=== PATIENT | female | born 1955 | race Caucasian/White ===

== ENCOUNTER 2020-01-10 09:35 | Outpatient (REF) | payer MEDICARE, MEDICAID, SELFPAY ==
[2020-01-10 10:13] LABS: Hematocrit 39.3 % (37-47); Hemoglobin 12.8 g/dl (12.0-16.0); Mean Corpuscular HGB Conc 32.6 g/dl (31.0-35.0); Mean Corpuscular Hemoglobin 27.5 pg (27.0-33.0); Mean Corpuscular Volume 84.5 fL (80-98); Mean Platelet Volume 9.8 fL (9.4-12.3); Platelet Count 205 X10*3/uL (160-400); Red Blood Count 4.65 X10*6/uL (4.20-5.50); Red Cell Distribution Width 12.8 % (11.0-16.0); White Blood Count 6.2 X10*3/uL (4.8-10.8)
[2020-01-10 10:42] LABS: Anion Gap 12 (12-20); Blood Urea Nitrogen 14 mg/dL (9-16); Calcium 9.4 mg/dL (8.4-10.2); Carbon Dioxide 29 mmol/L (22-29); Chloride 104 mmol/L (96-108); Cholesterol 239 mg/dL; Estimated Glomerular Filt Rate > 60; Glucose Fasting 91 mg/dL (60-99); HDL Cholesterol 64 mg/dL; LDL Cholesterol Calculated 148 mg/dl; Potassium 4.3 mmol/l (3.3-5.1); Sodium 141 mmol/L (135-145); Triglycerides 139 mg/dL
== END 2020-01-10 09:36 | disposition home or self-care (01) ==
LOC: HO.LAB 09:35
PROVIDERS: PCP Internal Medicine; Visit Provider Nurse Practitioner Family
DX: I10 Essential (primary) hypertension (principal)
CPT/HCPCS: 36415; 80048; 80061; 85027

== ENCOUNTER 2020-05-23 11:16 | Outpatient (REF) | payer MEDICARE, MEDICAID, SELFPAY | END 2020-05-23 11:17 | disposition home or self-care (01) | LOC: HO.LAB 11:16 | PROVIDERS: Visit Provider Nurse Practitioner Family | DX: J30.9 Allergic rhinitis, unspecified (principal); Z20.822 Contact with and (suspected) exposure to COVID-19 | CPT/HCPCS: U0003; U0005 ==

== ENCOUNTER 2021-02-25 07:33 | Outpatient (REF) | payer MEDICARE, MEDICAID, SELFPAY ==
[2021-02-25 07:47] LABS: MANUAL DIFF FLAG NO
[2021-02-25 08:29] LABS: Basophils Percent Auto 0.6 % (0-2); Eosinophils Absolute Auto 0.1 X10*3/uL (0.0-0.4); Eosinophils Percent Auto 1.2 % (0-4); Hematocrit 40.2 % (37.0-47.0); Imm Gran Abs Auto 0.01 X10*3/uL (0.00-0.03); Imm Gran Pct Auto 0.2 % (0.0-0.4); Lymphocytes Absolute Auto 1.8 X10*3/uL (1.2-4.9); Lymphocytes Percent Auto 36.4 % (20-40); Mean Corpuscular HGB Conc 32.3 g/dl (31.0-35.0); Mean Corpuscular Volume 83.6 fL (80.0-98.0); Monocytes Absolute Auto 0.3 X10*3/uL (0.1-1.2); Monocytes Percent Auto 6.7 % (2-11); Neutrophils Absolute Auto 2.6 x10*3/uL (2.0-8.3); Neutrophils Percent Auto 54.9 % (45-73); Platelet Count 195 X10*3/uL (160-400); Red Blood Count 4.81 X10*6/uL (4.20-5.50); White Blood Count 4.8 X10*3/uL (4.8-10.8)
[2021-02-25 08:55] LABS: Alanine Aminotransferase 21 U/L (0-31); Albumin Level 4.4 g/dL (3.5-5.0); Alkaline Phosphatase 60 U/L (39-117); Anion Gap 12 (12-20); Aspartate Amino Transferase 17 U/L (5-31); Bilirubin Total 0.4 mg/dL (0.0-1.0); Blood Urea Nitrogen 17 mg/dL (9-16); Calcium 9.9 mg/dL (8.4-10.2); Carbon Dioxide 28 mmol/L (22-29); Chloride 104 mmol/L (96-108); Cholesterol 261 mg/dL; Estimated Glomerular Filt Rate > 60; Glucose Random 102 mg/dL (60-115); HDL Cholesterol 72 mg/dL; LDL Cholesterol Calculated 171 mg/dl; Potassium 3.9 mmol/L (3.3-5.1); Sodium 140 mmol/L (135-145); Total Protein 7.7 g/dL (6.5-8.0); Triglycerides 94 mg/dL
[2021-02-25 09:18] LABS: Free T4 (Free Thyroxine) 1.03 ng/dL (0.71-1.85); Thyroid Stimulating Hormone 3.66 uIU/mL (0.32-4.0); Vitamin D 25-OH Total 15.5 ng/mL (>30)
[2021-02-25 09:31] LABS: Folate > 20.0 ng/mL (> or = 4.0); Vitamin B12 380 pg/mL (200-900)
== END 2021-02-25 07:34 | disposition home or self-care (01) ==
LOC: HO.LAB 07:33
PROVIDERS: PCP Internal Medicine; Visit Provider Internal Medicine
DX: E78.00 Pure hypercholesterolemia, unspecified (principal)
CPT/HCPCS: 36415; 80053; 80061; 82306; 82607; 82746; 84439; 84443; 85025

== ENCOUNTER 2021-04-03 13:09 | Outpatient (REF) | payer MEDICARE, MEDICAID, SELFPAY ==
--- NOTE | ~2021-04-03 | MM_ITS ---
EXAMINATION: MM SCREENING DIGITAL BREAST TOMOSYNTHESIS, BILATERAL CLINICAL INFORMATION: Screening. Asymptomatic. The lifetime risk of breast cancer based on the Tyrer-Cuzick Model is 4%. COMPARISON: Mammography: 12/24/2018, 12/16/2017, 03/03/2016, 11/23/2012 TECHNIQUE: Digital breast tomosynthesis is performed in both the craniocaudal and mediolateral oblique views along with computer-aided detection (CAD). Synthesized 2D images are generated from the tomosynthesis. FINDINGS: The breasts are heterogeneously dense, which may obscure small masses (ACR BI-RADS breast composition Category c). Parenchymal pattern is similar to prior exams. There is no significant mass or architectural abnormality. No developing density. Again, there are numerous regional calcifications right breast upper outer quadrant similar to prior studies. There are again lesser calcifications upper left breast. No interval suspicious calcifications. The axilla and skin contours are unremarkable. MM/MM tomosynthesis screening BI IMPRESSION: No significant changes from prior exams. ASSESSMENT: BI-RADS 2: Benign RECOMMENDATION: Routine annual mammography screening. This patient's information was entered into a reminder system with a target due date for their next mammogram.
== END 2021-04-03 13:10 | disposition home or self-care (01) ==
LOC: HO.MAMMO 13:09
PROVIDERS: Visit Provider Internal Medicine
DX: Z12.31 Encounter for screening mammogram for malignant neoplasm of breast (principal)
CPT/HCPCS: 77063; 77067

== ENCOUNTER 2021-06-05 06:47 | Outpatient (REF) | payer MEDICARE, MEDICAID, SELFPAY ==
[2021-06-05 08:00] LABS: Estimated Average Glucose 103 mg/dL; Hemoglobin A1c % 5.2 %
[2021-06-05 08:08] LABS: Alanine Aminotransferase 14 U/L (0-31); Albumin Level 4.2 g/dL (3.5-5.0); Alkaline Phosphatase 61 U/L (39-117); Anion Gap 11 (12-20); Aspartate Amino Transferase 17 U/L (5-31); Bilirubin Total 0.5 mg/dL (0.0-1.0); Blood Urea Nitrogen 16 mg/dL (9-16); Calcium 9.6 mg/dL (8.4-10.2); Carbon Dioxide 29 mmol/L (22-29); Chloride 102 mmol/L (96-108); Cholesterol 278 mg/dL; Estimated Glomerular Filt Rate > 60; Glucose Random 104 mg/dL (60-115); HDL Cholesterol 61 mg/dL; LDL Cholesterol Calculated 191 mg/dl; Potassium 4.1 mmol/L (3.3-5.1); Sodium 138 mmol/L (135-145); Total Protein 7.2 g/dL (6.5-8.0); Triglycerides 132 mg/dL
== END 2021-06-05 06:48 | disposition home or self-care (01) ==
LOC: HO.LAB 06:47
PROVIDERS: PCP Internal Medicine; Visit Provider Internal Medicine
DX: R73.02 Impaired glucose tolerance (oral) (principal); E78.00 Pure hypercholesterolemia, unspecified
CPT/HCPCS: 36415; 80053; 80061; 83036

== ENCOUNTER 2021-08-27 12:51 | Outpatient (REF) | payer MEDICARE, MEDICAID, SELFPAY ==
--- NOTE | ~2021-08-27 | MM_ITS ---
EXAMINATION: BONE DENSITOMETRY CLINICAL INDICATION: Asymptomatic menopausal state. COMPARISON: Previous BD dated 08/25/2019 and baseline BD dated 11/27/2016. TECHNIQUE: Using a Vivisimo DXA System (software version: 13.1) manufactured by [employer], dual-energy x-ray absorptiometry was performed of the lumbar spine and left hip. The images are of good technical quality. Summary results are attached. FINDINGS: AP SPINE L1-L4: Current: BMD 0.956 g/cm2, Z-score -0.2, T-score -1.9, osteopenia, 1.6% decrease from previous, 0.1% decrease from baseline (<5% change is not significant). Prior: BMD 0.972 g/cm2. Baseline: BMD 0.957 g/cm2. LEFT FEMUR, NECK: Current: BMD 0.746 g/cm2, Z-score -0.5, T-score -2.1, osteopenia. Prior: BMD 0.787 g/cm2. Baseline: BMD 0.841 g/cm2. LEFT FEMUR, TOTAL: Current: BMD 0.850 g/cm2, Z-score 0.1, T-score -1.3, osteopenia, 4.1% decrease from previous, 3.3% decrease from baseline (<5% change is not significant). Prior: BMD 0.886 g/cm2. Baseline: BMD 0.879 g/cm2. IDENTIFIED RISK FACTORS: Menopause. HISTORY OF FRACTURE: None listed. MEDICATIONS: Vitamin D. MM/XR DEXA axial skeleton IMPRESSION: 1. DIAGNOSIS: Osteopenia based on the lowest T-score value of -2.1 in the femoral neck applying World Health Organization criteria. 2. 10-YEAR FRACTURE RISK PREDICTION, FRAX: Major osteoporotic fracture (clinical spine, forearm, hip or shoulder) 6.8%. Hip fracture 1.3%. 3. Treatment Recommendations: NOF guidelines recommend consideration for treatment in postmenopausal women and men age 50 and older presenting with the following: -A hip or vertebral (clinical or morphometric) fracture. -T-score less than or equal to -2.5 at the femoral neck or spine after appropriate evaluation to exclude secondary causes. -Low bone mass at the hip or spine and a 10-year fracture probability by FRAX of greater than or equal to 3% for hip fracture or greater than or equal to 20% for major osteoporotic fracture based on the [place] adapted WHO algorithm. 4. Other Recommendations: All treatment decisions require clinical judgment and consideration of individual patient factors, including patient preferences, comorbidities, previous drug use, risk factors not captured in the FRAX model (e.g. frailty, falls, vitamin D deficiency, increased bone turnover, interval significant decline in bone density) and possible under or overestimation of fracture risk by FRAX. Additional medical evaluation for secondary cause of low bone mineral density may be appropriate. FUTURE SCAN RECOMMENDATION: People with diagnosed cases of osteoporosis or at high risk for fracture should have regular bone mineral density tests. For patients eligible for Medicare, routine testing is allowed once every 2 years. The testing frequency can be increased to one year for patients who have rapidly progressing disease, those who are receiving or discontinuing medical therapy to restore bone mass, or have additional risk factors.
== END 2021-08-27 12:52 | disposition home or self-care (01) ==
LOC: HO.MAMMO 12:51
PROVIDERS: PCP Internal Medicine; Visit Provider Physician Assistant
DX: Z13.820 Encounter for screening for osteoporosis (principal); Z78.0 Asymptomatic menopausal state
CPT/HCPCS: 77080

== ENCOUNTER 2021-09-12 09:26 | Outpatient (REF) | payer MEDICARE, MEDICAID, SELFPAY ==
--- NOTE | ~2021-09-12 | XR_ITS ---
EXAMINATION: XR KNEE, RIGHT CLINICAL INFORMATION: Right knee effusion. COMPARISON: None TECHNIQUE: Four views of the right knee. FINDINGS: Minimal tricompartmental degenerative joint changes are seen. There is no acute fracture or dislocation. Well-corticated spur off of the medial margin of the medial femoral condyle. Possible trace suprapatellar joint effusion. The soft tissues are unremarkable. XR/XR knee RT 4V IMPRESSION: Possible trace suprapatellar joint effusion without definitive acute abnormality. Minimal degenerative joint changes.
== END 2021-09-12 09:27 | disposition home or self-care (01) ==
LOC: HO.HMGCX 09:26
PROVIDERS: PCP Internal Medicine; Visit Provider Internal Medicine
DX: M25.461 Effusion, right knee (principal)
CPT/HCPCS: 73564

== ENCOUNTER 2021-12-10 10:49 | Emergency (ER) | payer MEDICARE, MEDICAID, SELFPAY ==
[2021-12-10 11:35] VITALS: BP 174/73; PULSE 97; RESP 18; TEMP 36.7; O2SAT 99; BMI 27.3
--- NOTE | 2021-12-10 13:37 | ED_ITS ---
HPI - Dental/Oral General Chief complaint: Dental/Oral Stated complaint: Dental Abscess Time Seen by Provider: 12/10/21 13:07 Source: patient Mode of arrival: ambulatory Limitations: language barrier (georgian speaking) History of Present Illness HPI Narrative: Patient is a 66 year old female with a past medical history of vitamin D deficiency who presents to the ED today with complaints of a dental infection. Patient was seen by her dentist 2 weeks ago who prescribed Clindamycin 150mg Q6H for 7 days. She states she completed the full course of abx without any improvement in her symptoms and returned to the dentist today who referred her here for a second opinion due to her PCN allergy. Location: Tooth # (superior to tooth #10) Onset (ago): week(s) (2) Duration: constant Severity: mild Relieving factors: nothing Exacerbating factors: nothing Associated symptoms: fever (subjective fevers ) Treatment prior to arrival: other (Clindamycin 150mg q6h x7 days. Completed on 12/06/2021) Related Data Previous Rx's Medication Instructions Recorded cholecalciferol (vitamin D3) 50 50 mcg PO DAILY 90 days #90 caps 03/15/21 mcg (2,000 unit) capsule calcium carbonate 500 mg calcium 500 mg PO DAILY 90 days #90 tabs 08/28/21 (1,250 mg) tablet (Oyster Shell Calcium) diclofenac sodium 1 % topical gel 2 g topical QID PRN pain #100 grams 09/26/21 (Arthritis Pain (diclofenac)) cefuroxime axetil 500 mg tablet 500 mg PO BID dental abscess 10 12/10/21 days #20 tabs Allergies Allergy/AdvReac Type Severity Reaction Status Date / Time Penicillins [PENICILLINS] Allergy Unknown RASH Verified 09/26/21 14:57 pseudoephedrine [Sudafed] Allergy Unknown Unknown Verified 09/26/21 14:57 Sulfa (Sulfonamide Allergy Unknown RASH Verified 09/26/21 14:57 Antibiotics) [SULFA (SULFONAMIDE ANTIBIOTICS)] Review of Systems Review of Systems: Constitutional : No Fever, No Chills, No changes in PO intake, No difficulty speaking, no recent dental procedure, no heat or cold intolerance while eating, no recent face trauma, ENT/Mouth : + Dental pain, No Sore throat, No Jaw pain, No throat swelling, No swallowing difficulty, no change in voice, No facial swelling, no drooling, no trismus, no bleeding, no lacerations, no tongue swelling, gum swelling, Eyes: No Eye Pain, No periorbital Swelling Cardiovascular : No Chest Pain, No SOB Respiratory : No Cough, No Sputum, No Wheezing, No Smoke Exposure, No Dyspnea Gastrointestinal : No Nausea, No Vomiting, No Diarrhea Genitourinary : No Dysuria Musculoskeletal : No Myalgias Skin : No rash, no facial swelling or redness, Neuro : No Weakness, No Numbness, No Headache Yes all other systems are reviewed and are negative [facility] Past Medical History Attestation statement: The following information was validated with the patient. Source: old records reviewed, obtained from family and nursing notes reviewed Medical History Cellulitis Cirrhosis High cholesterol Renal calculi Vaginal atrophy Vitamin D deficiency Surgical History History of biopsy History of foot surgery History of lithotripsy History of tubal ligation History of urologic surgery Family History Family History Father No problems noted. Mother Depression Social History Social History Housing: Apartment Alcohol intake: never Patient Tobacco Use Status: Never used Tobacco Tobacco use type: Cigarette e-Cigarette/Vaping Use: Never Used Second Hand Smoke Exposure: No Advance Directives: No Current occupational status: retired Cognitive needs: No Hearing needs: No Vision needs: Yes Physical Exam Vital Signs: Vital Signs: Last Vital Signs Temp 98.1 F 12/10/21 11:35 Pulse 97 12/10/21 11:35 Resp 18 12/10/21 11:35 BP 174/73 H 12/10/21 11:35 Pulse Ox 99 12/10/21 11:35 O2 Del Method 12/10/21 11:35 BMI result Body Mass Index 27.3 vital signs have been reviewed as normal and appeared to be correct. Blood pressure hypertensive at 174/73. Heart rate normal. Respiration rate normal. Temperature normal. Oxygen saturation normal. Appearance: Alert. Oriented X3. No acute distress. Head: Normal external exam. Normocephalic. Atraumatic. Eyes: PERRLA. EOMI. Conjunctiva and sclera normal. Eyelids normal. ENT: EAC normal. TM's Normal. Pharynx normal. Uvula midline. Moist mucous membranes. No trismus noted. No drooling noted. No muffled voice noted. Dentition: 0.25cm intact purulent abscess noted on the gingiva superior to tooth #10. Normal dentition. Not consistent with peritonsillar abscess. No salivary duct obstruction noted. Neck: Normal inspection. Neck supple. FROM. No adenopathy. Thyroid Normal. No meningeal signs. No neck mass noted. Trachea midline. CVS: Normal heart rate and rhythm. Heart sound normal. No murmurs noted. Pulses normal throughout. Respiratory: No respiratory distress. Painless inspiration. Breath sounds normal. No wheezes/rales/rhonchi noted. Chest nontender. No accessory muscle usage noted or decreased air movement noted. Back: Full range of motion noted. Skin: Skin warm and dry. Normal skin color. Normal skin turgor. No rashes/lesions/lacerations noted. Extremities:Extremities exhibit normal range of motion. Extremities nontender. Neuro: Oriented X 3. No motor deficit. No sensory deficit. Reflexes normal. Procedures Abscess I/D Site: oral Side (if applicable): left Sedation/analgesia: other Local Anesthetic: other anesthetic (none) Technique: needle aspiration Amount of fluid expressed (mL): 2 Sent for culture/gram staining?: No Irrigation: No Complications: other (No complications, pt tolerated procedure well.) Discharge Plan Discharge Clinical Impression: Gingival abscess Patient Disposition: Home, Self-Care Instructions: Dental Abscess (ED) Prescriptions: New cefuroxime axetil 500 mg tablet 500 mg PO BID 10 Days Qty: 20 0RF Rx Instructions: First dose given in the ER patient tolerated well no allergic reaction No Action calcium carbonate [Oyster Shell Calcium] 500 mg calcium (1,250 mg) tablet 500 mg PO DAILY 90 Days Qty: 90 2RF cholecalciferol (vitamin D3) 50 mcg (2,000 unit) capsule 50 mcg PO DAILY 90 Days Qty: 90 3RF diclofenac sodium [Arthritis Pain (diclofenac)] 1 % gel 2 g topical QID PRN (Reason: pain) Qty: 100 0RF Rx Instructions: apply to single elbow, wrist or hand; for hand includes palm/fingers/back of hand Referrals: Po,Lorenver O, MD [Primary Care Provider] - 2 days (your pcp) Interventions: ED Discharge Assessment Last Done: 12/10/21 14:47 Discharge Date/Time: 12/10/21 14:48
== END 2021-12-10 14:48 | disposition home or self-care (01) ==
PROVIDERS: Emergency Provider Emergency Medicine Emergency Medical Services; PCP Internal Medicine
DX: K04.7 Periapical abscess without sinus (principal); R50.9 Fever, unspecified; Z79.899 Other long term (current) drug therapy
CPT/HCPCS: 41800; 99283

== ENCOUNTER 2022-01-07 11:45 | Outpatient (REF) | payer MEDICARE, MEDICAID, SELFPAY ==
[2022-01-07 12:30] LABS: Influenza A PCR NEGATIVE (Negative); Influenza B PCR NEGATIVE (Negative); Resp Syncy Virus RNA Qual PCR NEGATIVE (Negative); SARS COV2 PCR INHOUSE NEGATIVE (Negative)
== END 2022-01-07 11:46 | disposition home or self-care (01) ==
LOC: HO.LNP 11:45
PROVIDERS: Visit Provider Internal Medicine
DX: Z20.822 Contact with and (suspected) exposure to COVID-19 (principal); R43.9 Unspecified disturbances of smell and taste
CPT/HCPCS: 0241U

== ENCOUNTER 2022-01-18 09:52 | Outpatient (REF) | payer MEDICARE, MEDICAID, SELFPAY ==
--- NOTE | ~2022-01-18 | XR_ITS ---
EXAMINATION: XR CHEST CLINICAL INFORMATION: Cough COMPARISON: None TECHNIQUE: 2 views of the chest were obtained. FINDINGS: No significant abnormality is noted involving the heart, lungs, mediastinum, bony thorax or soft tissues. Apical pleural-parenchymal scarring seen. XR/XR chest 2V IMPRESSION: No acute disease.
== END 2022-01-18 09:53 | disposition home or self-care (01) ==
LOC: HO.HMGCX 09:52
PROVIDERS: PCP Internal Medicine; Visit Provider Physician Assistant
DX: R05.9 Cough, unspecified (principal)
CPT/HCPCS: 71046

== ENCOUNTER 2022-04-09 12:55 | Outpatient (REF) | payer MEDICARE, MEDICAID, SELFPAY ==
--- NOTE | ~2022-04-09 | MM_ITS ---
EXAMINATION: MM SCREENING DIGITAL BREAST TOMOSYNTHESIS, BILATERAL CLINICAL INFORMATION: Screening. Asymptomatic. The lifetime risk of breast cancer based on the Tyrer-Cuzick Model is 3%. COMPARISON: Mammography: 04/03/2021, 12/24/2018, 12/16/2017 TECHNIQUE: Digital breast tomosynthesis is performed in both the craniocaudal and mediolateral oblique views along with computer-aided detection (CAD). Synthesized 2D images are generated from the tomosynthesis. FINDINGS: The breasts are heterogeneously dense, which may obscure small masses (ACR BI-RADS breast composition Category c). Parenchymal pattern is similar to prior exams and there is no significant mass, developing density, or architectural abnormality. The axilla and skin contours are unremarkable. Again, there are numerous punctate regional calcifications throughout the upper outer right breast with lesser calcifications on the left. Calcifications are similar in distribution and to prior studies. No significant changes. MM/MM tomosynthesis screening BI IMPRESSION: No significant changes from prior studies. ASSESSMENT: BI-RADS 2: Benign RECOMMENDATION: Routine annual mammography screening. This patient's information was entered into a reminder system with a target due date for their next mammogram.
== END 2022-04-09 12:56 | disposition home or self-care (01) ==
LOC: HO.MAMMO 12:55
PROVIDERS: PCP Internal Medicine; Visit Provider Internal Medicine
DX: Z12.31 Encounter for screening mammogram for malignant neoplasm of breast (principal)
CPT/HCPCS: 77063; 77067

== ENCOUNTER 2022-06-04 07:57 | Outpatient (REF) | payer MEDICARE, MEDICAID, SELFPAY ==
[2022-06-04 11:56] LABS: Alanine Aminotransferase 14 U/L (0-31); Albumin Level 4.3 g/dL (3.5-5.0); Alkaline Phosphatase 52 U/L (39-117); Anion Gap 10 (12-20); Aspartate Amino Transferase 15 U/L (5-31); Bilirubin Total 0.6 mg/dL (0.0-1.0); Blood Urea Nitrogen 16 mg/dL (9-16); Calcium 9.1 mg/dL (8.4-10.2); Carbon Dioxide 30 mmol/L (22-29); Chloride 105 mmol/L (96-108); Cholesterol 188 mg/dL; Estimated Glomerular Filt Rate > 60; Glucose Fasting 100 mg/dL (60-99); HDL Cholesterol 60 mg/dL; LDL Cholesterol Calculated 109 mg/dl; Sodium 141 mmol/L (135-145); Total Protein 6.8 g/dL (6.5-8.0); Triglycerides 99 mg/dL
== END 2022-06-04 07:58 | disposition home or self-care (01) ==
LOC: HO.HMGCLDS 07:57
PROVIDERS: PCP Internal Medicine; Visit Provider Internal Medicine
DX: E78.9 Disorder of lipoprotein metabolism, unspecified (principal)
CPT/HCPCS: 36415; 80053; 80061

== ENCOUNTER 2022-09-01 11:02 | Outpatient (AMB) | payer MEDICARE, MEDICAID, SELFPAY ==
--- NOTE | 2022-09-01 11:05 | A.OFFVIS_ITS ---
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 No complaints. Last Pap/HPV was in 02/02 was negative, the patient had a negative Pap smear in 2010/ Last Mammogram was BI-RADS 2 in 04/10 No previous screening Colonoscopy Last DEXA scan was in the low risk category in 09/06 [facility] Medical History Cellulitis Cirrhosis High cholesterol Renal calculi Vaginal atrophy Vitamin D deficiency Surgical History History of biopsy History of foot surgery History of lithotripsy History of tubal ligation History of urologic surgery Family History Father No problems noted. Mother Depression Mental health disorder Social History Housing: Apartment Alcohol intake: never Patient Tobacco Use Status: Never used Tobacco Tobacco use type: Cigarette e-Cigarette/Vaping Use: Never Used Second Hand Smoke Exposure: No Current occupational status: retired Cognitive needs: No Hearing needs: No Vision needs: Yes Female Reproductive History Menstrual Age of Menarche: 13 control method: permanent sterilization Total pregnancies: 3 Full term: 3 Number of Living Children: 3 Date of last pap smear: 02/05/18 (negative) History of abnormal pap smear: Yes (ASCUS 2010) Date of Mammogram: 04/09/22 Date of last Bone Density Screenin08/27/21 Review of Systems Const All systems reviewed & are unremarkable except as noted in HPI and below Card Reports as per HPI Resp Reports as per HPI GI Reports as per HPI and Reports no additional complaints Reports as per [facility] Physical Exam Vital Signs: Last Vital Signs BP 142/72 H 09/01/22 11:06 BMI result Body Mass Index 27.0 Const General: cooperative, healthy appearing and comfortable Chest Chest palpation & inspection: normal inspection of the chest and normal palpation of entire chest wall Breast/axilla inspection: normal inspection of the breasts and normal inspection of the axillae Breast/axilla palpation: normal palpation of the breasts, normal palpation of the axillae and no axillary lymphadenopathy Resp Effort & Inspection: normal respiratory effort Auscultation: clear to auscultation bilaterally Percussion: percussion normal Cardio Palpation: normal PMI Rate: regular rate Rhythm: regular rhythm Heart sounds: no murmurs and no rubs Peripheral pulses: Peripheral pulses 2+ throughout GI Inspection: Yes normal to inspection Palpation (GI): Soft to palpation, nontender, no guarding, not rigid and No hepatosplenomegaly present Percussion: Yes normal to percussion Auscultation: normal bowel sounds Rectal Exam - Female: deferred General: Yes bladder normal to palpation External Female Exam: No lesion Speculum Exam - Vagina: normal appearance of the vagina, normal palpation, normal vaginal discharge and not erythematous Speculum Exam - Cervix: normal appearance of the cervix and normal palpation Bimanual exam- vagina & uterus: normal bimanual exam, normal palpation, uterine size normal, bladder normal to palpation, consistency normal and normal palpation Bimanual Exam- Adnexa, other: no masses (Left adnexa within normal), no tenderness and Other (Right adnexal fullness) Assessment & Plan Assessment & Plan (1) Well woman exam: Code(s): Z01.419 - Encounter for gynecological examination (general) (routine) without abnormal findings Plan: Co testing not indicated since the patient 's age is above 65 with no history of abnormal Pap smears last 25 years, and has been adequately screen last 10 years prior to 65 years of age. Counseled the patient about the recommended dietary allowance of 1200 mg of Calcium & 800 IU of vitamin D. Instructed the patient to schedule next screening Mammogram in 04/11, referred her for screening colonoscopy done. The patient is up-to-date with her DEXA scan . The patient was instructed to perform monthly self-breast exams and to schedule an annual exam in a year; all questions answered and the patient verbalized understanding. (2) Adnexal fullness: Code(s): N94.9 - Unspecified condition associated with female genital organs and menstrual cycle Plan: Discussed with the patient the finding on pelvic exam revealing a right adnexal fullness, will order pelvic ultrasound. Instructions given to patient to schedule a 2 week ultrasound follow-up appointment. All questions answered, the patient verbalized understand Orders: Orders US pelvic and transvaginal Today N94.9 - Unspecified condition associated with female genital organs and menstrual cycle Referrals Gastroenterology Referral Z12.11 - Encounter for screening for malignant neoplasm of colon Coding Level of Care Code New Pt Prev Care >65yr (93991) Diagnoses Well woman exam Z01.419 Adnexal fullness N94.9
[2022-09-01 11:06] VITALS: BP 142/72; BMI 27.0
== END 2022-09-01 12:01 | disposition home or self-care (01) ==
PROVIDERS: PCP Internal Medicine; Visit Provider Obstetrics & Gynecology
DX: Z01.419 Encounter for gynecological examination (general) (routine) without abnormal findings (principal); N94.9 Unspecified condition associated with female genital organs and menstrual cycle
CPT/HCPCS: G0101

== ENCOUNTER → 2022-09-01 11:02 | Outpatient (BNVA) | payer MEDICARE, MEDICAID, SELFPAY | PROVIDERS: PCP Internal Medicine; Visit Provider Obstetrics & Gynecology | DX: Z01.419 Encounter for gynecological examination (general) (routine) without abnormal findings (principal); N94.9 Unspecified condition associated with female genital organs and menstrual cycle | CPT/HCPCS: G0101 ==

== ENCOUNTER 2022-09-26 07:52 | Outpatient (AMB) | payer MEDICARE, MEDICAID, SELFPAY ==
[2022-09-26 07:54] VITALS: BP 130/72; PULSE 77; O2SAT 97; BMI 26.9
--- NOTE | 2022-09-26 07:54 | A.OFFPC_ITS ---
Vital Signs 09/26/22 07:54 Height 5 ft 1 in Weight 142 lb 6 oz BMI 26.9 BP 130/72 Blood Pressure Location Lt brachial Position Sitting Pulse 77 Pulse Source Pulse Oximeter Pulse Oximetry (%) 97 Oxygen Delivery Method Room Air Intake Visit Reasons: Annual Physical Allergies Penicillins [PENICILLINS] Allergy (Unknown, Verified 09/26/22 07:54) RASH pseudoephedrine [Sudafed] Allergy (Unknown, Verified 09/26/22 07:54) Unknown Sulfa (Sulfonamide Antibiotics) [SULFA (SULFONAMIDE ANTIBIOTICS)] Allergy (Unknown, Verified 09/26/22 07:54) RASH Medication List - Last Reconciled 09/26/22 by Topher Amin MD albuterol sulfate 90 mcg/actuation (ProAir HFA) 1 inh inhalation Q4-6H PRN 30 days simvastatin 10 mg PO DAILY 90 days Tobacco use date assessed: 09/26/22 Fall risk assessment: No Falls in past year Last assessed Fall Risk: 09/26/22 Dental Screening Dental Screen Date: 09/26/22 Did you have a dental visit in the last 12 months?: Yes Did you have a dental problem in the last 6 months where you did not have access to dental care?: No Was dental information given to patient?: No HPI Annual Physical HPI Details Patient is a 67-year-old female came in today for physical examination Patient have lipid disorder she is taking simvastatin 10 mg Labs were done May of this year next set of lab will be in November Patient come in every 6 months for follow-up appointment Mammogram was March of this year Pap smear through [facility] She declined to do colonoscopy. [facility] Medical History Cellulitis Cirrhosis High cholesterol Renal calculi Vaginal atrophy Vitamin D deficiency Surgical History History of biopsy History of foot surgery History of lithotripsy History of tubal ligation History of urologic surgery Family History Father No problems noted. Mother Depression Mental health disorder Social History Housing: Apartment Alcohol intake: never Patient Tobacco Use Status: Never used Tobacco Tobacco use type: Cigarette e-Cigarette/Vaping Use: Never Used Second Hand Smoke Exposure: No service: No Current occupational status: retired Cognitive needs: No Hearing needs: No Vision needs: Yes Female Reproductive History Menstrual Age of Menarche: 13 Questionnaire Thrive Questionnaire Date Thrive assessed: 04/03/21 AUDIT C Alcohol Use Questionnaire (AUDIT-C) 1. How often do you have a drink containing alcohol?: Never 3. How often do you have six or more drinks on one occasion?: Never Total Score: 0 Score Reviewed/Action Taken: Yes HARDY-7 AMB Questionnaire HARDY-7 Date HARDY - 7 assessed: 03/28/22 Source: Developed by Drs. Jn Hampton, Delma Sheehan, Toñito Padilla and colleagues, with an educational saima from [employer]. Review of Systems Const Denies chills, Denies fever(s) and Denies headache(s) Eyes Denies blurry vision ENT Denies headache(s), Denies nasal discharge, Denies nasal obstruction, Denies odynophagia and Denies sinus pain Card Denies chest pain at rest and Denies chest pain with activity Resp Denies cough and Denies hemoptysis GI Denies diarrhea, Denies odynophagia, Denies vomiting and Denies hematemesis Reports as per HPI Musc Denies abnormal gait Skin/Breast Reports as per HPI Neuro Denies Neuro-related abnormal movements, Denies Abnormal speech present, Denies abnormal gait, Denies headache(s) and Denies Sensory deficit (Neuro) Psych Denies mood swings and Denies paranoia Endo Reports as per HPI [place]/Lymph Reports as per HPI Aller/Immun Reports as per HPI Physical exam (Primary Care) Vital Signs: Last Vital Signs Pulse 77 09/26/22 07:54 BP 130/72 09/26/22 07:54 Pulse Ox 97 09/26/22 07:54 Oxygen Delivery Method Room Air 09/26/22 07:54 BMI result Body Mass Index 26.9 Tobacco/Smoking Status: Tobacco use Status Tobacco use date assessed 09/26/22 09/26/22 07:58 Patient Tobacco Use Status Never used Tobacco 09/26/22 07:58 Tobacco use type Cigarette 09/26/22 07:58 e-Cigarette/Vaping Use Never Used 08/11/23 07:58 Thrive Assessment: Date of Thrive Assessment Date Thrive assessed 04/03/21 09/26/22 07:58 Const General: cooperative, comfortable and no acute distress Orientation/consciousness: patient oriented x3 HENMT Head: Yes normocephalic and Yes atraumatic Eyes General: appearance normal, both eyes and all related structures Pupils: Equal, round and reactive pupils present EOM: EOMs intact bilaterally Neck Neck: Yes supple and No lymphadenopathy Thyroid: Thyroid normal Lymphatic: no lymphadenopathy noted Resp Effort & Inspection: normal respiratory effort and able to speak in complete sentences Auscultation: clear to auscultation bilaterally Cardio Heart sounds: S1 normal heart sound present and S2 normal heart sound present GI Palpation (GI): Soft to palpation and nontender Auscultation: normal bowel sounds General: Yes no CVA tenderness Back/Spine/Pelvis Back: no CVA tenderness Skin General skin exam: elasticity normal and turgor normal Neuro General: patient oriented x3 and gait normal Cranial nerves: Yes Equal, round and reactive pupils present Speech: No Abnormal speech present Sensory Exam: No Sensory deficit (Neuro) Coordination: tandem gait normal and Romberg test negative Extrem General: Yes normal exam except as noted and No edema Assessment and Plan Assessment & Plan (1) Encounter for general adult medical examination with abnormal findings: Code(s): Z00.01 - Encounter for general adult medical examination with abnormal findings (2) Impaired glucose tolerance: Code(s): R73.02 - Impaired glucose tolerance (oral) (3) Vitamin D deficiency: Code(s): E55.9 - Vitamin D deficiency, unspecified (4) Lipid disorder: Code(s): E78.9 - Disorder of lipoprotein metabolism, unspecified (5) Colonoscopy refused: Code(s): Z53.20 - Procedure and treatment not carried out because of patient's decision for unspecified reasons Plan Patient is a 67-year-old female came in today for physical examination Patient have lipid disorder she is taking simvastatin 10 mg Labs were done May of this year next set of lab will be in November Patient come in every 6 months for follow-up appointment Mammogram was March of this year Pap smear through [facility] She declined to do colonoscopy. Orders: Orders Comprehensive [place]. Panel Fast 4 Weeks E55.9 - Vitamin D deficiency, unspecified, E78.9 - Disorder of lipoprotein metabolism, unspecified, R73.02 - Impaired glucose tolerance (oral) Hemoglobin A1c 4 Weeks E55.9 - Vitamin D deficiency, unspecified, E78.9 - Disorder of lipoprotein metabolism, unspecified, R73.02 - Impaired glucose tolerance (oral) Vitamin D 25-OH (D2 and D3) 4 Weeks E55.9 - Vitamin D deficiency, unspecified, E78.9 - Disorder of lipoprotein metabolism, unspecified, R73.02 - Impaired glucose tolerance (oral) Complete Blood Count Auto Diff 4 Weeks E55.9 - Vitamin D deficiency, unspecified, E78.9 - Disorder of lipoprotein metabolism, unspecified, R73.02 - Impaired glucose tolerance (oral) Coding Level of Care Code Est Pt Prev Care >65y(97202) Diagnoses Encounter for general adult medical examination with abnormal findings Z00.01 Impaired glucose tolerance R73.02 Vitamin D deficiency E55.9 Lipid disorder E78.9 Colonoscopy refused Z53.20
== END 2022-09-26 09:05 | disposition home or self-care (01) ==
PROVIDERS: PCP Internal Medicine; Visit Provider Internal Medicine
DX: Z00.00 Encounter for general adult medical examination without abnormal findings (principal); R73.02 Impaired glucose tolerance (oral); E55.9 Vitamin D deficiency, unspecified; E78.9 Disorder of lipoprotein metabolism, unspecified; Z53.20 Procedure and treatment not carried out because of patient's decision for unspecified reasons
CPT/HCPCS: 99397

== ENCOUNTER 2022-10-27 10:49 | Outpatient (REF) | payer MEDICARE, MEDICAID, SELFPAY ==
--- NOTE | ~2022-10-27 | US_ITS ---
EXAMINATION: US PELVIS COMPLETE CLINICAL INFORMATION: Adnexal fullness COMPARISON: CT abdomen pelvis 03/07/2013 TECHNIQUE: Transabdominal and transvaginal imaging was performed. FINDINGS: The uterus is of normal size and echogenicity measuring 11.7 x 5.5 x 6.8 cm. Endometrium was obscured due to the overlying fibroid. A 6.6 x 5.3 x 5.3 cm transmural anterior body myoma and a second possible subcentimeter partially calcified lower uterine segment myoma. Nabothian cysts in the cervix. Both ovaries are of normal size and echogenicity. The right measures 1.3 x 1.3 x 1.3 cm for a volume of 1.1 mL. The left measures 2.3 x 1.5 x 1.9 cm for a volume of 3.4 mL. Multi loculated cystic structure in the right adnexa of uncertain etiology measuring approximately 3 cm, present since 2013 where it measured 3.6 cm. There is no pelvic free fluid. US/US pelvic and transvaginal IMPRESSION: 1. Multi loculated cystic structure in the right adnexa measuring approximately 3 cm uncertain etiology, though appears to possibly been present since 2013, not increased in size. Recommend correlation with any outside prior pelvic ultrasound if available. One differential consideration could include a lymphangioma, given the relative stability. An MR pelvis could be obtained for further evaluation or follow-up pelvic ultrasound to assess stability in the absence of any prior pelvic ultrasounds for comparison. 2. A 6.6 cm transmural anterior body myoma and a second possible subcentimeter partially calcified lower uterine segment myoma. 3. Endometrium was obscured due to the overlying fibroid. 4. Ovaries are unremarkable in appearance.
== END 2022-10-27 10:50 | disposition home or self-care (01) ==
LOC: HO.US 10:49
PROVIDERS: PCP Internal Medicine; Visit Provider Obstetrics & Gynecology
DX: N94.9 Unspecified condition associated with female genital organs and menstrual cycle (principal)
CPT/HCPCS: 76830; 76856

== ENCOUNTER 2022-11-22 06:57 | Outpatient (REF) | payer MEDICARE, MEDICAID, SELFPAY ==
[2022-11-26 16:34] LABS: Vitamin D 25-OH, D2 <4 ng/mL; Vitamin D 25-OH, D3 17 ng/mL; Vitamin D 25-OH, Total 17 ng/mL (30-100)
== END 2022-11-22 06:58 | disposition home or self-care (01) ==
LOC: HO.HMGCLDS 06:57
PROVIDERS: PCP Internal Medicine; Visit Provider Internal Medicine
DX: R73.02 Impaired glucose tolerance (oral) (principal); E55.9 Vitamin D deficiency, unspecified; E78.9 Disorder of lipoprotein metabolism, unspecified
CPT/HCPCS: 36415; 80053; 82306; 83036; 85025

== ENCOUNTER 2022-12-22 10:12 | Outpatient (AMB) | payer MEDICARE, MEDICAID, SELFPAY ==
--- NOTE | 2022-12-22 10:16 | A.OFFVIS_ITS ---
Intake Vital Signs 12/22/22 10:17 Height 5 ft 1 in Weight 142 lb BMI 26.8 BP 126/80 Intake Visit Reasons: US follow up/DO NOT RS [employer]1 Operator Required: No Allergies Penicillins [PENICILLINS] Allergy (Unknown, Verified 12/22/22 10:17) RASH pseudoephedrine [Sudafed] Allergy (Unknown, Verified 12/22/22 10:17) Unknown Sulfa (Sulfonamide Antibiotics) [SULFA (SULFONAMIDE ANTIBIOTICS)] Allergy (Unknown, Verified 12/22/22 10:17) RASH HPI HPI Comments History of Present Illness Details Presenting for ultrasound follow-up. Pelvic ultrasound showed the following: The uterus is of normal size and echogenicity measuring 11.7 x 5.5 x 6.8 cm. Endometrium was obscured due to the overlying fibroid. A 6.6 x 5.3 x 5.3 cm transmural anterior body my ekta and a second possible subcentimeter partially calcified lower uterine segment myoma. Nabothian cysts in the cervix. Both ovaries are of normal size and echogenicity. The right measures 1.3 x 1.3 x 1.3 cm for a volume of 1.1 m L. The left measures 2.3 x 1.5 x 1.9 cm for a volume of 3.4 mL. Multi loculated cystic structure in the right adnexa of uncertain etiology measuring approximately 3 cm, present since 2013 where it measured 3.6 cm. There is no pelvic free fluid. [facility] Medical History Cellulitis Renal calculi Vaginal atrophy Vitamin D deficiency Cirrhosis High cholesterol Surgical History History of urologic surgery History of biopsy History of lithotripsy History of tubal ligation History of foot surgery Family History Father No problems noted. Mother Depression Mental health disorder Social History Housing: Apartment Alcohol intake: never Patient Tobacco Use Status: Never used Tobacco Tobacco use type: Cigarette e-Cigarette/Vaping Use: Never Used Second Hand Smoke Exposure: No service: No Current occupational status: retired Cognitive needs: No Hearing needs: No Vision needs: Yes Female Reproductive History Menstrual Age of Menarche: 13 Review of Systems Const All systems reviewed & are unremarkable except as noted in HPI and below Reports as per HPI and Reports no additional complaints GI Reports no additional complaints Reports no additional complaints Physical Exam Vital Signs: Last Vital Signs BP 126/80 12/22/22 10:17 BMI result Body Mass Index 26.8 Assessment & Plan Assessment & Plan (1) Complex ovarian cyst: Code(s): N83.299 - Other ovarian cyst, unspecified side Plan: Discussed with the patient the complex adnexa cyst with 6.6 cm myoma by Ultrasound. The differential diagnosis discussed with the patient includes the following but not limited to: benign and malignant gynecological and non- gynecological. In addition discussed with the patient the myoma 6.6 cm, and the risk of myosarcoma P Will order CA 125, CA 19-9 and CEA, CT scan of abdomen pelvis and refer to Gyne Onc . The patient verbalized understanding and agreed with the plan. (2) Myoma: Code(s): D21.9 - Benign neoplasm of connective and other soft tissue, unspecified Orders: Orders CA-125 Today N83.299 - Other ovarian cyst, unspecified side Carcinoembryonic Antigen Today N83.299 - Other ovarian cyst, unspecified side CT abdomen pelvis wo/w IV con Today N83.299 - Other ovarian cyst, unspecified side Carbohydrate Antigen 19-9 Today N83.299 - Other ovarian cyst, unspecified side Referrals Gynecologic Oncology Referral D21.9 - Benign neoplasm of connective and other soft tissue, unspecified, N83.299 - Other ovarian cyst, unspecified side Coding Level of Care Code Est Pt Level 3 (23103) Diagnoses Complex ovarian cyst N83.299 Myoma D21.9
[2022-12-22 10:17] VITALS: BP 126/80; BMI 26.8
== END 2022-12-22 11:44 | disposition home or self-care (01) ==
LOC: HO.HWS 10:12
PROVIDERS: PCP Internal Medicine; Visit Provider Obstetrics & Gynecology
DX: N83.299 Other ovarian cyst, unspecified side (principal); D21.9 Benign neoplasm of connective and other soft tissue, unspecified
CPT/HCPCS: 99213

== ENCOUNTER 2022-12-22 10:12 | Outpatient (REF) | payer MEDICARE, MEDICAID, SELFPAY ==
[2022-12-23 09:09] LABS: Carbohydrate Antigen 19-9 29 U/mL (<34)
[2022-12-23 10:28] LABS: CA-125 10 U/mL (<35)
== END 2022-12-22 10:13 | disposition home or self-care (01) ==
LOC: HO.LAB 10:12
PROVIDERS: PCP Internal Medicine; Visit Provider Obstetrics & Gynecology
DX: N83.299 Other ovarian cyst, unspecified side (principal); D21.9 Benign neoplasm of connective and other soft tissue, unspecified
CPT/HCPCS: 36415; 82378; 86301; 86304; 99212

== ENCOUNTER 2023-02-02 07:47 | Outpatient (REF) | payer MEDICARE, MEDICAID, SELFPAY ==
[2023-02-02 10:01] LABS: Blood Urea Nitrogen 15 mg/dL (9-16); Estimated Glomerular Filt Rate > 60
== END 2023-02-02 07:48 | disposition home or self-care (01) ==
LOC: HO.LAB 07:47
PROVIDERS: PCP Internal Medicine; Visit Provider Obstetrics & Gynecology
DX: Z01.812 Encounter for preprocedural laboratory examination (principal); N83.299 Other ovarian cyst, unspecified side
CPT/HCPCS: 36415; 82565; 84520

== ENCOUNTER 2023-02-11 09:27 | Outpatient (REF) | payer MEDICARE, MEDICAID, SELFPAY ==
[2023-02-11] MEDS: iohexoL 350 MG/ML 75 ML INFUS..BTL 85 ML IV (11:03)
== END 2023-02-11 09:28 | disposition home or self-care (01) ==
LOC: HO.CT 09:27
PROVIDERS: PCP Internal Medicine; Visit Provider Obstetrics & Gynecology
DX: N83.299 Other ovarian cyst, unspecified side (principal)
CPT/HCPCS: 74177; Q9967

== ENCOUNTER 2023-03-05 07:51 | Outpatient (AMB) | payer MEDICARE, MEDICAID, SELFPAY ==
[2023-03-05 08:07] VITALS: BP 110/68; BMI 26.7
--- NOTE | 2023-03-05 08:07 | MHC.OFFVIS ---
Intake Vital Signs 03/05/23 08:07 Height 5 ft 1 in Weight 141 lb 1.533 oz BMI 26.7 BP 110/68 Intake Visit Reasons: CT follow up Allergies Penicillins [PENICILLINS] Allergy (Unknown, Verified 12/22/22 10:17) RASH pseudoephedrine [Sudafed] Allergy (Unknown, Verified 12/22/22 10:17) Unknown Sulfa (Sulfonamide Antibiotics) [SULFA (SULFONAMIDE ANTIBIOTICS)] Allergy (Unknown, Verified 12/22/22 10:17) RASH HPI HPI Comments History of Present Illness Details Presenting for follow-up CT scan of abdomen pelvis. CT scan done in 02/21/2023 showed the following: IMPRESSION: 1. Redemonstration of enlarged leiomyomatous uterus containing a anterior fundal fibroid measuring 7.5 x 6.8 cm. Additional smaller calcified and noncalcified fibroids are noted. 2. Hypodense cystic focus in the right adnexa measures up to 3.1 cm redemonstrated. Small amount of fluid in the pelvic cul-de-sac. 3. Multiple bilateral renal cystic foci, not requiring follow-up. 4. Right-sided nephrolithiasis measuring 6 mm without hydronephrosis. 5. Small hiatal hernia. Pelvic ultrasound done 11/08 showed the following: IMPRESSION: 1. Multi loculated cystic structure in the right adnexa measuring approximately 3 cm uncertain etiology, though appears to possibly been present since 2013, not increased in size. Recommend correlation with any outside prior pelvic ultrasound if available. One differential consideration could include a lymphangioma, given the relative stability. An MR pelvis could be obtained for further evaluation or follow-up pelvic ultrasound to assess stability in the absence of any prior pelvic ultrasounds for comparison. 2. A 6.6 cm transmural anterior body myoma and a second possible subcentimeter partially calcified lower uterine segment myoma. 3. Endometrium was obscured due to the overlying fibroid. 4. Ovaries are unremarkable in appearance. CA 125, CEA and CA 19-9 were normal The patient was seen by Dr. Chan in 01/08 [facility] Medical History (Updated 03/05/23 @ 08:12 by Uziel Keith MD) Cellulitis Renal calculi Vaginal atrophy Vitamin D deficiency Cirrhosis High cholesterol Surgical History History of urologic surgery History of biopsy History of lithotripsy History of tubal ligation History of foot surgery Family History Father No problems noted. Mother Depression Mental health disorder Social History Housing: Apartment Alcohol intake: never Patient Tobacco Use Status: Never used Tobacco Tobacco use type: Cigarette e-Cigarette/Vaping Use: Never Used Second Hand Smoke Exposure: No service: No Current occupational status: retired Cognitive needs: No Hearing needs: No Vision needs: Yes Female Reproductive History Menstrual Age of Menarche: 13 Review of Systems Const All systems reviewed & are unremarkable except as noted in HPI and below Reports as per HPI and Reports no additional complaints GI Reports no additional complaints Reports no additional complaints Physical Exam Vital Signs: Last Vital Signs BP 110/68 03/05/23 08:07 BMI result Body Mass Index 26.7 Assessment & Plan Assessment & Plan (1) Myoma: Code(s): D21.9 - Benign neoplasm of connective and other soft tissue, unspecified Plan: Discussed with the patient the finding on CT scan showing an enlarged myoma 7.5 cm, risk of myosarcoma was discussed with the patient, refer to travel information center supervisor Oncology for further management (2) Complex ovarian cyst: Code(s): N83.299 - Other ovarian cyst, unspecified side Plan: Discussed with the patient the finding on pelvic ultrasound and CT scan showing complex ovarian cyst and normal CA 125, CEA and CA 19 9. The differential diagnosis discussed with the patient includes the following but not limited to: benign and malignant gynecological and non-gynecological. In addition discussed with the patient the sensitivity, specificity, false-positive and false-negative rate ovarian cancer tumor markers, will refer to travel information center supervisor Oncology for further management. All questions answered, the patient verbalized understanding. (3) Hiatal hernia: Code(s): K44.9 - Diaphragmatic hernia without obstruction or gangrene Plan: Discussed with the patient the finding of a small hiatal hernia , the patient was instructed to contact her PCP for further management (4) Renal calculi: Comment: June 2018 lithotripsy right ureteral stent July 2018Dr. Galan Code(s): N20.0 - Calculus of kidney Plan: Discussed with the patient the finding of nephrolithiasis on CT scan will refer to Urology for further management Orders: Referrals Urology Referral N20.0 - Calculus of kidney Coding Level of Care Code Est Pt Level 3 (88998) Diagnoses Myoma D21.9 Complex ovarian cyst N83.299 Hiatal hernia K44.9 Renal calculi N20.0
== END 2023-03-05 09:28 | disposition home or self-care (01) ==
LOC: HO.HWS 07:51
PROVIDERS: PCP Internal Medicine; Visit Provider Obstetrics & Gynecology
DX: D21.9 Benign neoplasm of connective and other soft tissue, unspecified (principal); N83.299 Other ovarian cyst, unspecified side; K44.9 Diaphragmatic hernia without obstruction or gangrene; N20.0 Calculus of kidney
CPT/HCPCS: 99213

== ENCOUNTER → 2023-03-05 07:51 | Outpatient (BNVA) | payer MEDICARE, MEDICAID, SELFPAY | PROVIDERS: PCP Internal Medicine; Visit Provider Obstetrics & Gynecology | DX: N83.299 Other ovarian cyst, unspecified side (principal); D21.9 Benign neoplasm of connective and other soft tissue, unspecified; K44.9 Diaphragmatic hernia without obstruction or gangrene; N20.0 Calculus of kidney | CPT/HCPCS: 99212 ==

== ENCOUNTER 2023-03-31 09:09 | Outpatient (AMB) | payer MEDICARE, MEDICAID, SELFPAY ==
--- NOTE | 2023-03-31 09:13 | MHC.PC.OV ---
Vital Signs 03/31/23 09:14 Height 5 ft 1 in Weight 144 lb 4 oz BMI 27.3 BP 142/82 H Blood Pressure Location Rt brachial Position Sitting Pulse 68 Pulse Source Pulse Oximeter Pulse Oximetry (%) 98 Oxygen Delivery Method Room Air Intake Visit Reasons: 6 month fu Allergies Penicillins [PENICILLINS] Allergy (Unknown, Verified 03/31/23 09:14) RASH pseudoephedrine [Sudafed] Allergy (Unknown, Verified 03/31/23 09:14) Unknown Sulfa (Sulfonamide Antibiotics) [SULFA (SULFONAMIDE ANTIBIOTICS)] Allergy (Unknown, Verified 03/31/23 09:14) RASH Medication List - Last Reconciled 03/31/23 by Topher Amin MD albuterol sulfate 90 mcg/actuation (ProAir HFA) 1 inh inhalation Q4-6H PRN 30 days Tobacco use date assessed: 03/31/23 Fall risk assessment: No Falls in past year Last assessed Fall Risk: 03/31/23 Dental Screening Dental Screen Date: 03/31/23 Did you have a dental visit in the last 12 months?: Yes Did you have a dental problem in the last 6 months where you did not have access to dental care?: No Was dental information given to patient?: Patient has dentist HPI 6 month fu HPI Details Patient is 68-year-old female came in today for her a follow-up appointment Patient have elevated lipids, she was on simvastatin, patient says that 2 months ago she stopped taking medication when pharmacy stopped refilling it Explained to patient that if that happens she just have to ask pharmacy to reach out to me. 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 Chan in [place] She has adnexal mass right side measuring approximately 3 cm, patient had similar finding in 2013 and it has been same size. She also have a 6.8 cm uterine fibroid Ovaries are unremarkable Multiple bilateral renal cystic foci And right-sided nephrolithiasis without hydronephrosis Patient says that she already have appointment with Urology coming up Follow-up 2 weeks for blood pressure and to go over labs for cholesterol [facility] Medical History Cellulitis Renal calculi Vaginal atrophy Vitamin D deficiency Cirrhosis High cholesterol Surgical History History of urologic surgery History of biopsy History of lithotripsy History of tubal ligation History of foot surgery Family History Father No problems noted. Mother Depression Mental health disorder Social History Housing: Apartment Alcohol intake: never Patient Tobacco Use Status: Never used Tobacco e-Cigarette/Vaping Use: Never Used Second Hand Smoke Exposure: No service: No Current occupational status: retired Cognitive needs: No Hearing needs: No Vision needs: Yes Female Reproductive History Menstrual Age of Menarche: 13 Questionnaire Thrive Questionnaire Date Thrive assessed: 04/03/21 AUDIT C Alcohol Use Questionnaire (AUDIT-C) 1. How often do you have a drink containing alcohol?: Never 3. How often do you have six or more drinks on one occasion?: Never Total Score: 0 Score Reviewed/Action Taken: Yes HARDY-7 AMB Questionnaire HARDY-7 Date HARDY - 7 assessed: 03/28/22 Source: Developed by Drs. Jn Hampton, Delma Sheehan, Toñito Padilla and colleagues, with an educational saima from [employer]. Review of Systems Const Denies chills and Denies fever(s) ENT Denies epistaxis and Denies nasal discharge Card Denies chest pain Resp Denies chest congestion, Denies cough and Denies hemoptysis GI Denies diarrhea and Denies nausea Skin/Breast Denies rash Neuro Reports no additional complaints Psych Reports no additional complaints Endo Reports no additional complaints Physical exam (Primary Care) Vital Signs: Last Vital Signs Pulse 68 03/31/23 09:14 BP 142/82 H 03/31/23 09:14 Pulse Ox 98 03/31/23 09:14 Oxygen Delivery Method Room Air 03/31/23 09:14 BMI result Body Mass Index 27.3 Tobacco/Smoking Status: Tobacco use Status Tobacco use date assessed 03/31/23 03/31/23 09:17 Patient Tobacco Use Status Never used Tobacco 03/31/23 09:17 Tobacco use type 03/31/23 09:17 e-Cigarette/Vaping Use Never Used 03/31/23 09:17 Thrive Assessment: Date of Thrive Assessment Date Thrive assessed 04/03/21 03/31/23 09:17 Const General: cooperative, comfortable and no acute distress Orientation/consciousness: patient oriented x3 HENMT Head: Yes normocephalic Eyes General: appearance normal, both eyes and all related structures Neck Neck: Yes supple Resp Effort & Inspection: normal respiratory effort, no cough and no stridor Cardio Rhythm: regular rhythm Heart sounds: S1 normal heart sound present and S2 normal heart sound present Skin General skin exam: turgor normal Neuro General: patient oriented x3, tone normal and moves all extremities Extrem Right lower extremity: no edema Left lower extremity: no edema Assessment and Plan Assessment & Plan (1) Hypertension, essential: Code(s): I10 - Essential (primary) hypertension (2) Lipid disorder: Code(s): E78.9 - Disorder of lipoprotein metabolism, unspecified (3) Osteopenia: Comment: August 2019 Code(s): M85.80 - Other specified disorders of bone density and structure, unspecified site (4) Adnexal fullness: Code(s): N94.9 - Unspecified condition associated with female genital organs and menstrual cycle (5) Myoma: Code(s): D21.9 - Benign neoplasm of connective and other soft tissue, unspecified (6) Renal calculi: Comment: June 2018 lithotripsy right ureteral stent July 2018Dr. Galan Code(s): N20.0 - Calculus of kidney Plan Patient is 68-year-old female came in today for her a follow-up appointment Patient have elevated lipids, she was on simvastatin, patient says that 2 months ago she stopped taking medication when pharmacy stopped refilling it Explained to patient that if that happens she just have to ask pharmacy to reach out to me. 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 Chan in [place] She has adnexal mass right side measuring approximately 3 cm, patient had similar finding in 2014 and it has been same size. She also have a 6.8 cm uterine fibroid Ovaries are unremarkable Multiple bilateral renal cystic foci And right-sided nephrolithiasis without hydronephrosis Patient says that she already have appointment with Urology coming up Follow-up 2 weeks for blood pressure and to go over labs for cholesterol Orders: Orders Complete Blood Count Auto Diff Today D21.9 - Benign neoplasm of connective and other soft tissue, unspecified, E78.9 - Disorder of lipoprotein metabolism, unspecified, M85.80 - Other specified disorders of bone density and structure, unspecified site, N20.0 - Calculus of kidney, N83.299 - Other ovarian cyst, unspecified side, N94.9 - Unspecified condition associated with female genital organs and menstrual cycle Comprehensive [place]. Panel Fast Today D21.9 - Benign neoplasm of connective and other soft tissue, unspecified, E78.9 - Disorder of lipoprotein metabolism, unspecified, M85.80 - Other specified disorders of bone density and structure, unspecified site, N20.0 - Calculus of kidney, N83.299 - Other ovarian cyst, unspecified side, N94.9 - Unspecified condition associated with female genital organs and menstrual cycle Lipid Panel Today D21.9 - Benign neoplasm of connective and other soft tissue, unspecified, E78.9 - Disorder of lipoprotein metabolism, unspecified, M85.80 - Other specified disorders of bone density and structure, unspecified site, N20.0 - Calculus of kidney, N83.299 - Other ovarian cyst, unspecified side, N94.9 - Unspecified condition associated with female genital organs and menstrual cycle Medications: New [Blood pressure monitor] As directed 1 ea 0RF I10 - Essential (primary) hypertension Coding Level of Care Code Est Pt Level 4 (84489) Diagnoses Hypertension, essential I10 Lipid disorder E78.9 Osteopenia M85.80 Adnexal fullness N94.9 Myoma D21.9 Renal calculi N20.0
[2023-03-31 09:14] VITALS: BP 142/82; PULSE 68; O2SAT 98; BMI 27.3
== END 2023-03-31 09:37 | disposition home or self-care (01) ==
PROVIDERS: PCP Internal Medicine; Visit Provider Internal Medicine
DX: I10 Essential (primary) hypertension (principal); E78.9 Disorder of lipoprotein metabolism, unspecified; M85.80 Other specified disorders of bone density and structure, unspecified site; N94.9 Unspecified condition associated with female genital organs and menstrual cycle; D21.9 Benign neoplasm of connective and other soft tissue, unspecified; N20.0 Calculus of kidney
CPT/HCPCS: 99214

== ENCOUNTER 2023-03-31 09:37 | Outpatient (REF) | payer MEDICARE, MEDICAID, SELFPAY ==
[2023-03-31 11:16] LABS: MANUAL DIFF FLAG NO
[2023-03-31 11:23] LABS: Basophils Percent Auto 0.6 % (0-2); Eosinophils Absolute Auto 0.1 X10*3/uL (0.0-0.4); Eosinophils Percent Auto 2.2 % (0-4); Hematocrit 40.7 % (37.0-47.0); Hemoglobin 13.1 g/dl (12.0-16.0); Imm Gran Abs Auto 0.01 X10*3/uL (0.00-0.03); Imm Gran Pct Auto 0.2 % (0.0-0.4); Lymphocytes Percent Auto 39.4 % (20-40); Mean Corpuscular HGB Conc 32.2 g/dl (31.0-35.0); Mean Corpuscular Volume 83.9 fL (80.0-98.0); Mean Platelet Volume 9.6 fL (9.4-12.3); Monocytes Absolute Auto 0.3 X10*3/uL (0.1-1.2); Monocytes Percent Auto 6.8 % (2-11); Neutrophils Absolute Auto 2.5 x10*3/uL (2.0-8.3); Neutrophils Percent Auto 50.8 % (45-73); Platelet Count 203 X10*3/uL (160-400); Red Blood Count 4.85 X10*6/uL (4.20-5.50)
[2023-03-31 11:57] LABS: Alanine Aminotransferase 16 U/L (0-31); Albumin Level 4.4 g/dL (3.5-5.0); Alkaline Phosphatase 55 U/L (39-117); Anion Gap 10 (12-20); Aspartate Amino Transferase 19 U/L (5-31); Bilirubin Total 0.4 mg/dL (0.0-1.0); Blood Urea Nitrogen 14 mg/dL (9-16); Calcium 9.7 mg/dL (8.4-10.2); Carbon Dioxide 29 mmol/L (22-29); Chloride 106 mmol/L (96-108); Cholesterol 270 mg/dL (<200); Estimated Glomerular Filt Rate > 60; Glucose Fasting 91 mg/dL (60-99); HDL Cholesterol 67 mg/dL (>40); LDL Cholesterol Calculated 181 mg/dL (<100); Sodium 141 mmol/L (135-145); Total Protein 7.7 g/dL (6.5-8.0); Triglycerides 110 mg/dL (<150)
== END 2023-03-31 09:38 | disposition home or self-care (01) ==
LOC: HO.HMGCLDS 09:37
PROVIDERS: PCP Internal Medicine; Visit Provider Internal Medicine
DX: E78.9 Disorder of lipoprotein metabolism, unspecified (principal); M85.80 Other specified disorders of bone density and structure, unspecified site; N83.299 Other ovarian cyst, unspecified side; D21.9 Benign neoplasm of connective and other soft tissue, unspecified; N20.0 Calculus of kidney; N94.9 Unspecified condition associated with female genital organs and menstrual cycle
CPT/HCPCS: 36415; 80053; 80061; 85025

== ENCOUNTER 2023-04-14 10:40 | Outpatient (AMB) | payer MEDICARE, MEDICAID, SELFPAY ==
[2023-04-14 10:42] VITALS: BP 140/86; PULSE 82; O2SAT 99; BMI 27.3
--- NOTE | 2023-04-14 10:42 | A.OFFPC_ITS ---
Vital Signs 04/14/23 10:42 Height 5 ft 1 in Weight 144 lb 4 oz BMI 27.3 BP 140/86 H Blood Pressure Location Rt brachial Position Sitting Pulse 82 Pulse Source Pulse Oximeter Pulse Oximetry (%) 99 Oxygen Delivery Method Room Air Intake Visit Reasons: 2 week follow up Allergies Penicillins [PENICILLINS] Allergy (Unknown, Verified 04/14/23 10:42) RASH pseudoephedrine [Sudafed] Allergy (Unknown, Verified 04/14/23 10:42) Unknown Sulfa (Sulfonamide Antibiotics) [SULFA (SULFONAMIDE ANTIBIOTICS)] Allergy (Unknown, Verified 04/14/23 10:42) RASH Medication List - Last Reconciled 04/14/23 by Topher Amin MD albuterol sulfate 90 mcg/actuation (ProAir HFA) 1 inh inhalation Q4-6H PRN 30 days [Blood pressure monitor As directed] Tobacco use date assessed: 04/14/23 Fall risk assessment: No Falls in past year Last assessed Fall Risk: 04/14/23 Dental Screening Dental Screen Date: 04/14/23 Did you have a dental visit in the last 12 months?: Yes Did you have a dental problem in the last 6 months where you did not have access to dental care?: No Was dental information given to patient?: Patient has dentist HPI 2 week follow up HPI0 Details Patient came in today for blood pressure check and to go over labs Her LDL came back at 181, she was on simvastatin 10 mg but then she stopped when she ran out I have sent a refill for the patient we will recheck labs again in 6 months Blood pressure is elevated however she is checking at home and it is running around 120-130 systolic Patient have a white coat hypertension She is requesting a refill on her albuterol which I have sent [facility] Medical History Cellulitis Renal calculi Vaginal atrophy Vitamin D deficiency Cirrhosis High cholesterol Surgical History History of urologic surgery History of biopsy History of lithotripsy History of tubal ligation History of foot surgery Family History Father No problems noted. Mother Depression Mental health disorder Social History Housing: Apartment Alcohol intake: never Patient Tobacco Use Status: Never used Tobacco e-Cigarette/Vaping Use: Never Used Second Hand Smoke Exposure: No service: No Current occupational status: retired Cognitive needs: No Hearing needs: No Vision needs: Yes Female Reproductive History Menstrual Age of Menarche: 13 Questionnaire PHQ-9 Over the last 2 weeks, how often have you been bothered by any of the following problems? 1. Little interest or pleasure in doing things: not at all 2. Feeling down, depressed, or hopeless: not at all 3. Trouble falling or staying asleep, or sleeping too much: not at all 4. Feeling tired or having little energy: not at all 5. Poor appetite or overeating: not at all 6. Feeling bad about yourself - or that you are a failure or have let yourself or your family down: not at all 7. Trouble concentrating on things, such as reading the newspaper or watching television: not at all 8. Moving or speaking so slowly that other people could have noticed. Or the opposite - being so fidgety or restless that you have been moving around a lot more than usual: not at all 9. Thoughts that you would be better off or of hurting yourself in some way: not at all Total score: 0 Depression Screening Interpretation: Negative Depression Screening Done: Yes 66862 - PHQ-9 Billing: Yes Source: Developed by Drs. Jn Hampton, Delma Sheehan, Toñito Padilla and colleagues, with an educational saima from [employer]. Thrive Questionnaire Date Thrive assessed: 04/03/21 AUDIT C Alcohol Use Questionnaire (AUDIT-C) 1. How often do you have a drink containing alcohol?: Never 3. How often do you have six or more drinks on one occasion?: Never Total Score: 0 Score Reviewed/Action Taken: Yes HARDY-7 AMB Questionnaire HARDY-7 Date HARDY - 7 assessed: 04/14/23 Feeling nervous, anxious, or on edge: 0 = Not at all Not being able to stop or control worryin = Not at all Worrying too much about different things: 0 = Not at all Trouble relaxin = Not at all Being so restless that it is hard to sit still: 0 = Not at all Becoming easily annoyed or irritable: 0 = Not at all Feeling afraid as if something awful might happen: 0 = Not at all Total HARDY-7 score (0-4 normal; 5-9 mild; 10-14 moderate; 15-21 severe): 0 Source: Developed by Drs. Jn Hampton, Delma Sheehan, Toñito Padilla and colleagues, with an educational saima from [employer]. HARDY-7 Assessment Billing HARDY-7 Assessment Tool: HARDY-7 Assessment 21646 Review of Systems Const Denies chills and Denies fever(s) ENT Denies epistaxis and Denies nasal discharge Card Denies chest pain Resp Denies chest congestion, Denies cough and Denies hemoptysis GI Denies diarrhea and Denies nausea Skin/Breast Denies rash Neuro Reports no additional complaints Psych Reports no additional complaints Endo Reports no additional complaints Physical exam (Primary Care) Vital Signs: Last Vital Signs Pulse 82 04/14/23 10:42 BP 140/86 H 04/14/23 10:42 Pulse Ox 99 04/14/23 10:42 Oxygen Delivery Method Room Air 04/14/23 10:42 BMI result Body Mass Index 27.3 Tobacco/Smoking Status: Tobacco use Status Tobacco use date assessed 04/14/23 04/14/23 10:44 Patient Tobacco Use Status Never used Tobacco 04/14/23 10:44 Tobacco use type 03/31/23 09:34 e-Cigarette/Vaping Use Never Used 04/14/23 10:44 PHQ-9: PHQ-9 Score PHQ-9: Total score 0 04/14/23 10:57 Depression Screening Interpretation: Negative Thrive Assessment: Date of Thrive Assessment Date Thrive assessed 04/03/21 04/14/23 10:44 Const General: cooperative, comfortable and no acute distress Orientation/consciousness: patient oriented x3 HENMT Head: Yes normocephalic Eyes General: appearance normal, both eyes and all related structures Neck Neck: Yes supple Resp Effort & Inspection: normal respiratory effort, no cough and no stridor Cardio Rhythm: regular rhythm Heart sounds: S1 normal heart sound present and S2 normal heart sound present Skin General skin exam: turgor normal Neuro General: patient oriented x3, tone normal and moves all extremities Extrem Right lower extremity: no edema Left lower extremity: no edema Assessment and Plan Assessment & Plan (1) Lipid disorder: Code(s): E78.9 - Disorder of lipoprotein metabolism, unspecified (2) White coat syndrome without hypertension: Code(s): R03.0 - Elevated blood-pressure reading, without diagnosis of hypertension (3) Intermittent asthma: Code(s): J45.20 - Mild intermittent asthma, uncomplicated Qualifiers: Asthma complication type: uncomplicated Asthma severity: mild Qualified Code(s): J45.20 - Mild intermittent asthma, uncomplicated Plan Patient came in today for blood pressure check and to go over labs Her LDL came back at 181, she was on simvastatin 10 mg but then she stopped when she ran out I have sent a refill for the patient we will recheck labs again in 6 months Blood pressure is elevated however she is checking at home and it is running around 120-130 systolic Patient have a white coat hypertension She is requesting a refill on her albuterol which I have sent Orders: Orders Lipid Panel 5 Months E78.9 - Disorder of lipoprotein metabolism, unspecified Comprehensive Met. Panel 5 Months I10 - Essential (primary) hypertension Medications: Refilled simvastatin 10 mg PO DAILY 90 tabs 1RF 90 days Coding Level of Care Code Est Pt Level 3 (40840) Diagnoses Lipid disorder E78.9 White coat syndrome without hypertension R03.0 Mild intermittent asthma without complication J45.20 Asthma complication type: uncomplicated Asthma severity: mild Additional Codes HARDY-7 Assessment Billing - HARDY-7 Assessment Tool: HARDY-7 Assessment [id number] ([id number])
== END 2023-04-14 16:12 | disposition home or self-care (01) ==
PROVIDERS: PCP Internal Medicine; Visit Provider Internal Medicine
DX: E78.9 Disorder of lipoprotein metabolism, unspecified (principal); R03.0 Elevated blood-pressure reading, without diagnosis of hypertension; J45.20 Mild intermittent asthma, uncomplicated
CPT/HCPCS: 99213

== ENCOUNTER 2023-04-20 09:34 | Outpatient (AMB) | payer MEDICARE, MEDICAID, SELFPAY ==
--- NOTE | 2023-04-20 09:40 | MHC.OFFVIS ---
Intake Intake Visit Reasons: Calculus of kidney Intake Note: New Patient presents for initial visit for kidney stone Urology Medications: none Blood Thinner: none Allergies to antibiotics: Sulfa, Penicillins Patient stated she has right back pain, and she denies any pain or blood in the urine. Vocational Coordinator Required: No Accompanied by: Self / Same As Patient Allergies Penicillins [PENICILLINS] Allergy (Unknown, Verified 04/20/23 10:38) RASH pseudoephedrine [Sudafed] Allergy (Unknown, Verified 04/20/23 10:38) Unknown Sulfa (Sulfonamide Antibiotics) [SULFA (SULFONAMIDE ANTIBIOTICS)] Allergy (Unknown, Verified 04/20/23 10:38) RASH Medication List - Last Reconciled 04/20/23 by GABRIELA Carreor albuterol sulfate 90 mcg/actuation (ProAir HFA) 1 inh inhalation Q4-6H PRN 30 days [Blood pressure monitor As directed] simvastatin 10 mg PO DAILY 90 days HPI HPI Comments History of Present Illness Details Karen is a very pleasant 68-year-old female patient of Dr. Amin. She has a past medical history of cellulitis, nephrolithiasis, vaginal atrophy, vitamin-D deficiency, cirrhosis, and hyperlipidemia. She presents to the office today as a new patient for microscopic hematuria nephrolithiasis. 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 These results were reviewed with the patient today. Multiple bilateral renal cystic foci, not requiring follow-up per radiology report. Right-sided nephrolithiasis measuring 6 mm without hydronephrosis. No left-sided nephrolithiasis or hydronephrosis seen.The bladder is unremarkable. In discussion with the patient today she reports a previous history of nephrolithiasis requiring surgical intervention with Dr. Hood approximately 5 years ago. She discusses having had ureteroscopy with stent placement. She currently denies any bothersome urinary issues or concerns. Discussed at length causes of nephrolithiasis. Discussed further interventions regarding nephrolithiasis with surgical intervention and or surveillance monitoring. At this time patient would like to continue with surveillance monitoring as she is not having any issues or concerns. When asked she denies urinary urgency, urinary frequency, incontinence, nocturia, hematuria, dysuria, foul smelling urine, changes to urinary stream, flank pain, fever, and or chills. She is happy with her current voiding parameters. [facility] Medical History Cellulitis Renal calculi Vaginal atrophy Vitamin D deficiency Cirrhosis High cholesterol Surgical History History of urologic surgery History of biopsy History of lithotripsy History of tubal ligation History of foot surgery Family History Father No problems noted. Mother Depression Mental health disorder Social History Housing: Apartment Alcohol intake: never Patient Tobacco Use Status: Never used Tobacco e-Cigarette/Vaping Use: Never Used Second Hand Smoke Exposure: No service: No Current occupational status: retired Cognitive needs: No Hearing needs: No Vision needs: Yes Female Reproductive History Menstrual Age of Menarche: 13 Review of Systems Const Reports no additional complaints Eyes Reports no additional complaints ENT Reports no additional complaints Card Reports as per HPI Resp Reports no additional complaints GI Reports no additional complaints Reports as per HPI Musc Reports no additional complaints Neuro Reports no additional complaints Psych Reports no additional complaints Endo Reports no additional complaints [place]/Lymph Reports no additional complaints Aller/Immun Reports no additional complaints Physical Exam Const General: cooperative, healthy appearing, comfortable, no acute distress, well developed, alert and awake Orientation/consciousness: patient oriented x3 Limitations: no limitations HEENT Head: Yes normal to inspection, Yes normocephalic and Yes atraumatic Ears: hearing grossly normal bilaterally Eyes General: appearance normal, both eyes and all related structures Neck Neck: Yes normal visual inspection and Yes trachea midline Chest Chest palpation & inspection: normal inspection of the chest Resp Effort & Inspection: normal respiratory effort and able to speak in complete sentences Cardio Rate: regular rate GI Inspection: Yes normal to inspection General: Yes no CVA tenderness Back/Spine/Pelvis Back: no CVA tenderness Skin General skin exam: no rashes or lesions noted Neuro General: patient oriented x3 Extrem General: Yes normal to inspection Psych Appearance: grossly normal and well kempt Mental Status: mental status grossly normal Speech and movement: Normal speech and movement present and Clear speech present Affect: normal affect Attitude: cooperative Thought process: Normal thought process present Thought content: Normal thought content present Insight: Fair insight present (Psych) Judgement: Fair judgement present (Psych) Results AMB Urinalysis, Automated UA Leukoctes 0 Nahun/uL Last Edit by Jessica Marmolejo [facility] on 04/20/23 09:50 UA Nitrite Negative Last Edit by Jessica Marmolejo, [facility] on 04/20/23 09:50 UA Urobilinogen 0.2 mg/dL Last Edit by Jessica Marmolejo, [facility] on 04/20/23 09:50 UA Protein 15 mg/dL Last Edit by Jessica Marmolejo, [facility] on 04/20/23 09:50 UA pH 7.0 Last Edit by Jessica Marmolejo, [facility] on 04/20/23 09:50 UA Blood 80 Tez/uL Last Edit by Jessica Marmolejo, [facility] on 04/20/23 09:50 UA Specific [place] 1.010 Last Edit by Jessica Marmolejo, [facility] on 04/20/23 09:50 UA Ketone Negative Last Edit by Jessica Marmolejo, [facility] on 04/20/23 09:50 UA Bilirubin 0 mg/dL Last Edit by Jessica Marmolejo, [facility] on 04/20/23 09:50 UA Glucose 0 mg/dL Last Edit by Jessica Marmolejo, [facility] on 04/20/23 09:50 Results Reviewed Results Reviewed: Laboratory Last Values Urine pH (Auto) 7.0 04/20/23 09:49 Specific [place] (Auto) 1.010 04/20/23 09:49 Urine Protein (Auto) 15 mg/dL 04/20/23 09:49 Glucose (UA)(Auto) 0 mg/dL 04/20/23 09:49 Urine Ketones (Auto) Negative 04/20/23 09:49 Urine Blood (Auto) 80 Tez/uL 04/20/23 09:49 Urine Nitrite (Auto) Negative 04/20/23 09:49 Urine Bilirubin (Auto) 0 mg/dL 04/20/23 09:49 Urine Urobilinogen (Auto) 0.2 mg/dL 04/20/23 09:49 Leukocyte Esterase (Auto) 0 Nahun/uL 04/20/23 09:49 Date of Service: 02/11/23 EXAMINATION: CT ABDOMEN AND PELVIS WITH CONTRAST FINDINGS: LUNG BASES: Left basilar atelectasis. No pneumothorax. No large pleural effusion. LIVER, GALLBLADDER, AND BILIARY TREE: The liver is normal in size, shape, and attenuation. No focal hepatic lesion or biliary ductal dilatation is present. The gallbladder is unremarkable with no evidence of radiopaque gallstones, gallbladder wall thickening, or obvious pericholecystic inflammatory changes. PANCREAS: Unremarkable. SPLEEN: Unremarkable. ADRENAL GLANDS: Unremarkable. KIDNEYS AND URETERS: Multiple bilateral renal cystic foci, not requiring follow-up. Right-sided nephrolithiasis measuring 6 mm without hydronephrosis. No left-sided nephrolithiasis or hydronephrosis. BLADDER: Unremarkable. GASTROINTESTINAL TRACT: Small hiatal hernia. The small and large bowel are unremarkable. The appendix is unremarkable. ABDOMINAL WALL: No significant hernia is appreciated. LYMPH NODES: Normal. VASCULAR: Abdominal aorta is nonaneurysmal. Pelvic phleboliths are visualized. PELVIC VISCERA: Redemonstration of enlarged leiomyomatous uterus containing a anterior fundal fibroid measuring 7.5 x 6.8 cm. Additional smaller calcified and noncalcified fibroids are noted. Hypodense cystic focus in the right adnexa measures up to 3.1 cm redemonstrated. Small amount of fluid in the pelvic cul-de-sac. OSSEOUS STRUCTURES: Multilevel degenerative changes of the thoracolumbar lumbosacral spine. Slight levocurvature of the upper lumbar spine. CT/CT abdomen pelvis w IV con IMPRESSION: 1. Redemonstration of enlarged leiomyomatous uterus containing a anterior fundal fibroid measuring 7.5 x 6.8 cm. Additional smaller calcified and noncalcified fibroids are noted. 2. Hypodense cystic focus in the right adnexa measures up to 3.1 cm redemonstrated. Small amount of fluid in the pelvic cul-de-sac. 3. Multiple bilateral renal cystic foci, not requiring follow-up. 4. Right-sided nephrolithiasis measuring 6 mm without hydronephrosis. 5. Small hiatal hernia. Assessment & Plan Assessment & Plan (1) Renal calculi: Comment: June 2018 lithotripsy right ureteral stent July 2018Dr. Galan Code(s): N20.0 - Calculus of kidney Plan In office urinalysis results reviewed with the patient today; as noted above. Most recent CT results reviewed with the patient today; as noted above. Discussed at length further treatment options with surveillance monitoring verses surgical intervention. Patient currently denies any bothersome urinary issues or concerns. She is happy with her current voiding parameters. Start vitamin B6 as discussed and prescribed. Discussed at length potential causes of nephrolithiasis. Discussed, educated, and stressed the importance of drinking plenty of water daily. Discussed adding 1 oz of lemon juice to water daily. Will obtain renal ultrasound in 6 months Follow-up in 6 months with imaging to be completed prior; or sooner with any issues, concerns, and or questions. Orders: Orders US renal BI 6 Months N20.0 - Calculus of kidney AMB Urinalysis Automated Today R33.9 - Retention of urine, unspecified Urine Cytology Today N39.0 - Urinary tract infection, site not specified, R31.29 - Other microscopic hematuria Medications: New pyridoxine (vitamin B6) 100 mg PO DAILY 90 tabs 1RF 90 days Patient Instructions: The patient had an opportunity to ask questions regarding the treatment plan. All questions were answered. Physical exam, labs, and imaging were discussed and reviewed in detail. As well as risks, benefits, and discussion of treatment choices. No major barriers to understanding were identified. The patient expressed understanding and agreement with the above treatment plan. The patient was made aware they should contact our office by phone for worsening of their current condition, the appearance of new symptoms, or with any questions or concerns. Compliance is encouraged with any medications and follow up testing that is ordered. It is a privilege to be allowed the opportunity to participate in? your urological care.? Again, if you have any questions or concerns If you have any questions or concerns please do not hesitate to contact me. The office is [phone]. This note is constructed using voice recognition software. While every effort has been made to ensure accuracy authorization rep errors may have been included. Yours sincerely, GABRIELA Carrero Coding Level of Care Code New Pt Level 4 (46649) Diagnoses Renal calculi N20.0
== END 2023-04-20 10:20 | disposition home or self-care (01) ==
PROVIDERS: PCP Internal Medicine; Visit Provider Nurse Practitioner Family
DX: N20.0 Calculus of kidney (principal)
CPT/HCPCS: 99204

== ENCOUNTER 2023-04-20 09:34 | Outpatient (REF) | payer MEDICARE, MEDICAID, SELFPAY ==
[2023-04-20 16:36] LABS: Urine Cytology See Pathology rpt
== END 2023-04-20 09:35 | disposition home or self-care (01) ==
LOC: HO.LAB 09:34
PROVIDERS: PCP Internal Medicine; Visit Provider Nurse Practitioner Family
DX: N20.0 Calculus of kidney (principal); R31.29 Other microscopic hematuria
CPT/HCPCS: 81003; 88112; 99202

== ENCOUNTER 2023-09-29 08:30 | Outpatient (AMB) | payer MEDICARE, MEDICAID, SELFPAY ==
[2023-09-29 08:31] VITALS: BP 140/80; PULSE 73; O2SAT 96; BMI 27.8
--- NOTE | 2023-09-29 08:31 | MHC.PC.OV ---
Vital Signs 09/29/23 08:31 Height 5 ft 1 in Weight 147 lb 6 oz BMI 27.8 BP 140/80 H Blood Pressure Location Rt brachial Position Sitting Pulse 73 Pulse Source Pulse Oximeter Pulse Oximetry (%) 96 Oxygen Delivery Method Room Air Intake Visit Reasons: PE Allergies Penicillins [PENICILLINS] Allergy (Unknown, Verified 09/29/23 08:31) RASH pseudoephedrine [Sudafed] Allergy (Unknown, Verified 09/29/23 08:31) Unknown Sulfa (Sulfonamide Antibiotics) [SULFA (SULFONAMIDE ANTIBIOTICS)] Allergy (Unknown, Verified 09/29/23 08:31) RASH Medication List - Last Reconciled 09/29/23 by Topher Amin MD albuterol sulfate 90 mcg/actuation (ProAir HFA) 1 inh inhalation Q4-6H PRN 30 days [Blood pressure monitor As directed] Tobacco use date assessed: 09/29/23 Fall risk assessment: No Falls in past year Last assessed Fall Risk: 09/29/23 Dental Screening Dental Screen Date: 09/29/23 Did you have a dental visit in the last 12 months?: Yes Did you have a dental problem in the last 6 months where you did not have access to dental care?: No Was dental information given to patient?: Patient has dentist HPI PE HPI Details Patient is a 68-year-old female came in today for physical examination Patient have lipid disorder she took simvastatin 10 for few months and then stop Patient was notified to continue the medication Refill sent, she is to repeat labs again in 2 months Patient to come in every six-month follow-up appointment Mammogram is due DEXA scan is due, patient have osteopenia last DEXA scan was 2021 with a score of -2.[address] Keith [facility] She declined to do colonoscopy. [facility] Medical History Cellulitis Renal calculi Vaginal atrophy Vitamin D deficiency Cirrhosis High cholesterol Surgical History History of urologic surgery History of biopsy History of lithotripsy History of tubal ligation History of foot surgery Family History Father No problems noted. Mother Depression Mental health disorder Social History Housing: Apartment Alcohol intake: never Patient Tobacco Use Status: Never used Tobacco e-Cigarette/Vaping Use: Never Used Second Hand Smoke Exposure: No service: No Current occupational status: retired Cognitive needs: No Hearing needs: No Vision needs: Yes Female Reproductive History Menstrual Age of Menarche: 13 Questionnaire PHQ-9 Over the last 2 weeks, how often have you been bothered by any of the following problems? 1. Little interest or pleasure in doing things: not at all 2. Feeling down, depressed, or hopeless: not at all 3. Trouble falling or staying asleep, or sleeping too much: not at all 4. Feeling tired or having little energy: not at all 5. Poor appetite or overeating: not at all 6. Feeling bad about yourself - or that you are a failure or have let yourself or your family down: not at all 7. Trouble concentrating on things, such as reading the newspaper or watching television: not at all 8. Moving or speaking so slowly that other people could have noticed. Or the opposite - being so fidgety or restless that you have been moving around a lot more than usual: not at all 9. Thoughts that you would be better off or of hurting yourself in some way: not at all Total score: 0 Depression Screening Interpretation: Negative Depression Screening Done: Yes 98393 - PHQ-9 Billing: Yes Source: Developed by Drs. Jn Hampton, Delma Sheehan, Toñito Padilla and colleagues, with an educational saima from [email or web address]. Thrive Questionnaire Date Thrive assessed: 09/29/23 I am a: Patient What is your living situation today?: I have a steady place to live Within the past 12 months, did the food you bought not last and you didn't have the money to get more?: Never true Within the past 12 months, did you worry whether your food would run out before you got money to buy more?: Never true Do you have trouble paying for medicines?: No Do you have trouble getting transportation to medical appointments?: No Do you have trouble paying your heating and electricity bill?: No Do you have trouble taking care of your child, family member or friend?: No Do you have trouble with day-to-day activities such as bathing, preparing meals, shopping, managing finances, etc.?: No Are you currently unemployed and looking for a job?: No Are you interested in more education?: No Please select the resources that you would like help with: None Currently or been in a relationship where the following occur: No concerns reported THRIVE Score: 0 AUDIT C Alcohol Use Questionnaire (AUDIT-C) 1. How often do you have a drink containing alcohol?: Never 3. How often do you have six or more drinks on one occasion?: Never Total Score: 0 Score Reviewed/Action Taken: Yes HARDY-7 AMB Questionnaire HARDY-7 Date HARDY - 7 assessed: 09/29/23 Feeling nervous, anxious, or on edge: 0 = Not at all Not being able to stop or control worryin = Not at all Worrying too much about different things: 0 = Not at all Trouble relaxin = Not at all Being so restless that it is hard to sit still: 0 = Not at all Becoming easily annoyed or irritable: 0 = Not at all Feeling afraid as if something awful might happen: 0 = Not at all Total HARDY-7 score (0-4 normal; 5-9 mild; 10-14 moderate; 15-21 severe): 0 Source: Developed by Drs. Jn Hampton, Delma Sheehan, Toñito Padilla and colleagues, with an educational saima from [email or web address]. HARDY-7 Assessment Billing HARDY-7 Assessment Tool: HARDY-7 Assessment 78305 Review of Systems Const Denies chills, Denies fever(s) and Denies headache(s) Eyes Denies blurry vision ENT Denies headache(s), Denies nasal discharge, Denies nasal obstruction, Denies odynophagia and Denies sinus pain Card Denies chest pain at rest and Denies chest pain with activity Resp Denies cough and Denies hemoptysis GI Denies diarrhea, Denies odynophagia, Denies vomiting and Denies hematemesis Reports as per HPI Musc Denies abnormal gait Skin/Breast Reports as per HPI Neuro Denies Neuro-related abnormal movements, Denies Abnormal speech present, Denies abnormal gait, Denies headache(s) and Denies Sensory deficit (Neuro) Psych Denies mood swings and Denies paranoia Endo Reports as per HPI [place]/Lymph Reports as per HPI Aller/Immun Reports as per HPI Physical exam (Primary Care) Vital Signs: Last Vital Signs Pulse 73 09/29/23 08:31 BP 140/80 H 09/29/23 08:31 Pulse Ox 96 09/29/23 08:31 Oxygen Delivery Method Room Air 09/29/23 08:31 BMI result Body Mass Index 27.8 Tobacco/Smoking Status: Tobacco use Status Tobacco use date assessed 09/29/23 09/29/23 08:36 Patient Tobacco Use Status Never used Tobacco 09/29/23 08:36 Tobacco use type 03/31/23 09:34 e-Cigarette/Vaping Use Never Used 09/29/23 08:36 PHQ-9: PHQ-9 Score PHQ-9: Total score 0 09/29/23 09:05 Depression Screening Interpretation: Negative Thrive Assessment: Date of Thrive Assessment Date Thrive assessed 09/29/23 09/29/23 08:36 Currently or been in a relationship where the following occur: No concerns reported Const General: cooperative, comfortable and no acute distress Orientation/consciousness: patient oriented x3 HENMT Head: Yes normocephalic and Yes atraumatic Eyes General: appearance normal, both eyes and all related structures Pupils: Equal, round and reactive pupils present EOM: EOMs intact bilaterally Neck Neck: Yes supple and No lymphadenopathy Thyroid: Thyroid normal Lymphatic: no lymphadenopathy noted Chest Breast/axilla palpation: normal palpation of the breasts Resp Effort & Inspection: normal respiratory effort and able to speak in complete sentences Auscultation: clear to auscultation bilaterally Cardio Heart sounds: S1 normal heart sound present and S2 normal heart sound present GI Palpation (GI): Soft to palpation and nontender Auscultation: normal bowel sounds General: Yes no CVA tenderness Back/Spine/Pelvis Back: no CVA tenderness Skin General skin exam: elasticity normal and turgor normal Neuro General: patient oriented x3 and gait normal Cranial nerves: Yes Equal, round and reactive pupils present Speech: No Abnormal speech present Sensory Exam: No Sensory deficit (Neuro) Coordination: tandem gait normal and Romberg test negative Extrem General: Yes normal exam except as noted and No edema Assessment and Plan Assessment & Plan (1) Encounter for general adult medical examination with abnormal findings: Code(s): Z00.01 - Encounter for general adult medical examination with abnormal findings (2) Osteopenia: Comment: August 2019 Code(s): M85.80 - Other specified disorders of bone density and structure, unspecified site Qualifiers: Osteopenia location: unspecified Qualified Code(s): M85.80 - Other specified disorders of bone density and structure, unspecified site (3) Impaired glucose tolerance: Code(s): R73.02 - Impaired glucose tolerance (oral) (4) Lipid disorder: Code(s): E78.9 - Disorder of lipoprotein metabolism, unspecified (5) White coat syndrome with high blood pressure but without hypertension: Code(s): R03.0 - Elevated blood-pressure reading, without diagnosis of hypertension Plan Patient is a 68-year-old female came in today for physical examination Patient have lipid disorder she took simvastatin 10 for few months and then stop Patient was notified to continue the medication Refill sent, she is to repeat labs again in 2 months Patient to come in every six-month follow-up appointment Mammogram is due DEXA scan is due, patient have osteopenia last DEXA scan was 2021 with a score of -2.[address] Keith [facility] She declined to do colonoscopy. Orders: Orders Complete Blood Count Auto Diff Today E78.9 - Disorder of lipoprotein metabolism, unspecified, M85.80 - Other specified disorders of bone density and structure, unspecified site, R03.0 - Elevated blood-pressure reading, without diagnosis of hypertension, R73.02 - Impaired glucose tolerance (oral), Z00.01 - Encounter for general adult medical examination with abnormal findings MM tomosynthesis screening BI Today M85.80 - Other specified disorders of bone density and structure, unspecified site, Z12.31 - Encounter for screening mammogram for malignant neoplasm of breast Comprehensive [place]. Panel Fast Today E78.9 - Disorder of lipoprotein metabolism, unspecified, M85.80 - Other specified disorders of bone density and structure, unspecified site, R03.0 - Elevated blood-pressure reading, without diagnosis of hypertension, R73.02 - Impaired glucose tolerance (oral), Z00.01 - Encounter for general adult medical examination with abnormal findings TSH reflex Free T4 Today E78.9 - Disorder of lipoprotein metabolism, unspecified, M85.80 - Other specified disorders of bone density and structure, unspecified site, R03.0 - Elevated blood-pressure reading, without diagnosis of hypertension, R73.02 - Impaired glucose tolerance (oral), Z00.01 - Encounter for general adult medical examination with abnormal findings Lipid Panel Today E78.9 - Disorder of lipoprotein metabolism, unspecified, M85.80 - Other specified disorders of bone density and structure, unspecified site, R03.0 - Elevated blood-pressure reading, without diagnosis of hypertension, R73.02 - Impaired glucose tolerance (oral), Z00.01 - Encounter for general adult medical examination with abnormal findings XR DEXA axial skeleton Today M85.80 - Other specified disorders of bone density and structure, unspecified site, Z12.31 - Encounter for screening mammogram for malignant neoplasm of breast Medications: Refilled simvastatin 10 mg PO DAILY 90 tabs 1RF 90 days Coding Level of Care Code Est Pt Level 3 (79156) Est Pt Prev Care >65y(53661) Diagnoses Encounter for general adult medical examination with abnormal findings Z00.01 Osteopenia, unspecified location M85.80 Osteopenia location: unspecified Impaired glucose tolerance R73.02 Lipid disorder E78.9 White coat syndrome with high blood pressure but without hypertension R03.0 Additional Codes HARDY-7 Assessment Billing - HARDY-7 Assessment Tool: HARDY-7 Assessment 14176 ([id number])
== END 2023-09-29 09:00 | disposition home or self-care (01) ==
PROVIDERS: PCP Internal Medicine; Visit Provider Internal Medicine
DX: Z00.00 Encounter for general adult medical examination without abnormal findings (principal); R03.0 Elevated blood-pressure reading, without diagnosis of hypertension; R73.02 Impaired glucose tolerance (oral); M85.80 Other specified disorders of bone density and structure, unspecified site; E78.9 Disorder of lipoprotein metabolism, unspecified
CPT/HCPCS: 99213; 99397

== ENCOUNTER 2023-10-22 11:05 | Outpatient (REF) | payer MEDICARE, MEDICAID, SELFPAY ==
--- NOTE | ~2023-10-22 | US_ITS ---
EXAMINATION: US RETROPERITONEAL LIMITED (RENAL ONLY) CLINICAL INFORMATION: Calculus of kidney. COMPARISON: CT abdomen and pelvis 02/11/2023. TECHNIQUE: Real-time imaging of the kidneys. FINDINGS: RIGHT KIDNEY: 10.4 x 3.2 x 4.5 cm (SAG x AP x TRV). The kidney is normal in size, contour, and echogenicity. Renal cortical thickness is normal. No hydronephrosis. Benign-appearing renal cyst measuring 1.1 cm. No follow up imaging is recommended. 4 mm nonobstructing lower pole renal stone unchanged. LEFT KIDNEY: 10.9 x 5.0 x 4.9 cm (SAG x AP x TRV). The kidney is normal in size, contour, and echogenicity. Renal cortical thickness is normal. No calculi or focal parenchymal lesions. Pelviectasis without manny hydronephrosis. New 7 mm echogenic focus in the left midpole possibly a stone or parenchymal calcification. US/US renal BI IMPRESSION: 1. Left renal pelviectasis without manny hydronephrosis. 2. New 7 mm echogenic focus in the left midpole possibly a stone or parenchymal calcification. Stable 4 mm nonobstructing right lower pole renal stone. No hydronephrosis. Electronically signed by: Meg Cano MD 11/09/2023 05:19 PM EDT
== END 2023-10-22 11:06 | disposition home or self-care (01) ==
LOC: HO.US 11:05
PROVIDERS: PCP Internal Medicine; Visit Provider Nurse Practitioner Family
DX: N20.0 Calculus of kidney (principal)
CPT/HCPCS: 76775

== ENCOUNTER 2023-12-01 12:14 | Outpatient (AMB) | payer MEDICARE, MEDICAID, SELFPAY ==
--- NOTE | 2023-12-01 12:14 | A.OFFVIS_ITS ---
Intake Visit Reasons: US Results(set) Intake Note: Patient presents today for tele visit for kidney stone and ultrasound results Imaging Completed: 10/22/23 Urology Medications: none Blood Thinner: none Allergies to antibiotics: Sulfa, Penicillins Production Director Required: No Production Director Name: Mihaela Accompanied by: Self / Same As Patient Allergies Penicillins [PENICILLINS] Allergy (Unknown, Verified 12/01/23 13:16) RASH pseudoephedrine [Sudafed] Allergy (Unknown, Verified 12/01/23 13:16) Unknown Sulfa (Sulfonamide Antibiotics) [SULFA (SULFONAMIDE ANTIBIOTICS)] Allergy (Unknown, Verified 12/01/23 13:16) RASH Medication List - Last Reconciled 12/01/23 by EDER Carrero albuterol sulfate 90 mcg/actuation (ProAir HFA) 1 inh inhalation Q4-6H PRN 30 days [Blood pressure monitor As directed] simvastatin 10 mg PO DAILY 90 days HPI Comments Details: Karen is a very pleasant 68-year-old female patient of Dr. Amin. She has a past medical history of cellulitis, nephrolithiasis, vaginal atrophy, vitamin-D deficiency, cirrhosis, and hyperlipidemia. She is being followed up on today via telehealth for her history of microscopic hematuria nephrolithiasis. In discussion with the patient today she reports to be doing and feeling well. She reports no bothersome urinary issues since her last off ice visit here approximately 6 months ago. Recent renal imaging results reviewed with the patient today. Left renal pelviectasis without manny hydronephrosis. New 7 mm echogenic focus in the left mid pole possibly a stone or parenchymal calcification. Stable 4 mm nonobstructing right renal calculi with no hydronephrosis. She reports she attempts to drink plenty of water daily however this varies day today however she is attempting to be more consistent with drinking plenty of water daily. We discussed potential increase for stone burden. She has a history of nephrolithiasis in the past requiring surgical intervention with Dr. Hood. She discusses having had ureteroscopy with stent placement. Discussed at length causes of nephrolithiasis. Discussed further interventions regarding nephrolithiasis with surgical intervention and or surveillance monitoring. At this time patient would like to continue with surveillance monitoring as she is not having any issues or concerns. When asked she denies urinary urgency, urinary frequency, incontinence, nocturia, hematuria, dysuria, foul smelling urine, changes to urinary stream, flank pain, fever, and or chills. She is happy with her current voiding parameters. We reviewed previous urine cytology results from last office visit 05/09 Atypical urothelial cells. Discussed at length potential causes of microscopic hematuria. Discussed further workup to include CT urogram as well as in office cystoscopy. Risks and benefits of these interventions were discussed. She otherwise offers no other issues or concerns at this time. [facility] Medical History Cellulitis Renal calculi Vaginal atrophy Vitamin D deficiency Cirrhosis High cholesterol Surgical History History of urologic surgery History of biopsy History of lithotripsy History of tubal ligation History of foot surgery Family History Father No problems noted. Mother Depression Mental health disorder Social History Housing: Apartment Alcohol intake: never Patient Tobacco Use Status: Never used Tobacco e-Cigarette/Vaping Use: Never Used Second Hand Smoke Exposure: No service: No Current occupational status: retired Cognitive needs: No Hearing needs: No Vision needs: Yes Female Reproductive History Menstrual Age of Menarche: 13 Review of Systems Const Reports no additional complaints Eyes Reports no additional complaints ENT Reports no additional complaints Card Reports as per HPI Resp Reports no additional complaints GI Reports no additional complaints Reports as per HPI Musc Reports no additional complaints Neuro Reports no additional complaints Psych Reports no additional complaints Endo Reports no additional complaints [place]/Lymph Reports no additional complaints Aller/Immun Reports no additional complaints Physical Exam Const General: cooperative Orientation/consciousness: patient oriented x3 Resp Effort & Inspection: able to speak in complete sentences Neuro General: patient oriented x3 Psych Speech and movement: Clear speech present Affect: normal affect Attitude: cooperative Thought content: Normal thought content present Insight: Fair insight present (Psych) Judgement: Fair judgement present (Psych) Telehealth Telehealth Telehealth Platform: Re[employer]er Location of provider rendering services: practice address Location of patient: address on file Patient Identification confirmed using: Name, : Yes Telehealth method: video Patient verbally consented to treatment: Yes Patient verbally consented to billing insurance company: Yes Patient informed of any privacy concerns related to visit: Yes Minutes spent on Phone/Video with Pt.: 15 Results Reviewed Results Reviewed: Date of Service: 10/22/23 EXAMINATION: US RETROPERITONEAL LIMITED (RENAL ONLY) FINDINGS: RIGHT KIDNEY: 10.4 x 3.2 x 4.5 cm (SAG x AP x TRV). The kidney is normal in size, contour, and echogenicity. Renal cortical thickness is normal. No hydronephrosis. Benign-appearing renal cyst measuring 1.1 cm. No follow up imaging is recommended. 4 mm nonobstructing lower pole renal stone unchanged. LEFT KIDNEY: 10.9 x 5.0 x 4.9 cm (SAG x AP x TRV). The kidney is normal in size, contour, and echogenicity. Renal cortical thickness is normal. No calculi or focal parenchymal lesions. Pelviectasis without manny hydronephrosis. New 7 mm echogenic focus in the left midpole possibly a stone or parenchymal calcification. IMPRESSION: 1. Left renal pelviectasis without manny hydronephrosis. 2. New 7 mm echogenic focus in the left midpole possibly a stone or parenchymal calcification. Stable 4 mm nonobstructing right lower pole renal stone. No hydronephrosis. Assessment & Plan Assessment & Plan (1) Renal calculi: Comment: June 2018 lithotripsy right ureteral stent July 2018Dr. Galan Code(s): N20.0 - Calculus of kidney Category: Medical (2) Microscopic hematuria: Code(s): R31.29 - Other microscopic hematuria Category: Medical Plan Recent renal imaging results reviewed with the patient today; as noted above. Previous urine cytology results reviewed with the patient today; as noted above. Discussed at length potential causes of microscopic hematuria. Discussed obtaining repeat urine cytology as well as further workup to include CT urogram and in office cystoscopy; risks and benefits of these interventions were discussed. She would like to continue with surveillance monitoring at this time as she does not feel workup is necessary. Patient currently denies any bothersome urinary issues or concerns. She reports be happy with current voiding parameters. Discussed at length potential causes of nephrolithiasis. Discussed, educated, and stressed the importance of drinking plenty of water daily. Discussed adding 1 oz of lemon juice to water daily. Will obtain KUB in 6 months. Follow-up in 6 months with imaging to be completed prior; or sooner with any issues, concerns, and or questions. Orders: Orders Urine Cytology Today R31.29 - Other microscopic hematuria XR KUB 6 Months N20.0 - Calculus of kidney Patient Instructions: The patient had an opportunity to ask questions regarding the treatment plan. All questions were answered. Physical exam, labs, and imaging were discussed and reviewed in detail. As well as risks, benefits, and discussion of treatment choices. No major barriers to understanding were identified. The patient ex pressed understanding and agreement with the above treatment plan. The patient was made aware they should contact our office by phone for worsening of their current condition, the appearance of new symptoms, or with any questions or concerns. Compliance is encouraged with any medications and follow up testing that is ordered. It is a privilege to be allowed the opportunity to participate in? your urological care.? Again, if you have any questions or concerns If you have any questions or concerns please do not hesitate to contact me. The office is [phone]. This note is constructed using voice recognition software. While every effort has been made to ensure accuracy disability coordinator errors may have been included. Yours sincerely, GABRIELA Carrero Coding Level of Care Code Tele Est Pt Level 3 (98012) Complex EM visit Add On G2211 Diagnoses Renal calculi N20.0 Microscopic hematuria R31.29 Time Spent (min) 20
== END 2023-12-01 15:40 | disposition home or self-care (01) ==
LOC: HO.HUSH 12:14
PROVIDERS: PCP Internal Medicine; Visit Provider Nurse Practitioner Family
DX: N20.0 Calculus of kidney (principal); R31.29 Other microscopic hematuria
CPT/HCPCS: 99213

== ENCOUNTER → 2023-12-01 12:14 | Outpatient (BNVA) | payer MEDICARE, MEDICAID, SELFPAY | PROVIDERS: PCP Internal Medicine; Visit Provider Nurse Practitioner Family ==

== ENCOUNTER 2023-12-11 08:24 | Outpatient (REF) | payer MEDICARE, MEDICAID, SELFPAY ==
[2023-12-11 10:07] LABS: MANUAL DIFF FLAG NO
[2023-12-11 10:13] LABS: Basophils Percent Auto 0.7 % (0-2); Eosinophils Absolute Auto 0.1 X10*3/uL (0.0-0.4); Eosinophils Percent Auto 1.7 % (0-4); Hematocrit 40.7 % (37.0-47.0); Hemoglobin 13.2 g/dl (12.0-16.0); Imm Gran Abs Auto 0.01 X10*3/uL (0.00-0.03); Imm Gran Pct Auto 0.2 % (0.0-0.4); Lymphocytes Absolute Auto 1.7 X10*3/uL (1.2-4.9); Lymphocytes Percent Auto 41.7 % (20-40); Mean Corpuscular HGB Conc 32.4 g/dl (31.0-35.0); Mean Corpuscular Hemoglobin 27.2 pg (27.0-33.0); Mean Corpuscular Volume 83.9 fL (80.0-98.0); Mean Platelet Volume 9.7 fL (9.4-12.3); Monocytes Absolute Auto 0.3 X10*3/uL (0.1-1.2); Neutrophils Percent Auto 48.7 % (45-73); Platelet Count 204 X10*3/uL (160-400); Red Blood Count 4.85 X10*6/uL (4.20-5.50); Red Cell Distribution Width 12.9 % (11.0-16.0); White Blood Count 4.2 X10*3/uL (4.8-10.8)
[2023-12-11 10:44] LABS: Alanine Aminotransferase 20 U/L (0-31); Albumin Level 4.3 g/dL (3.5-5.0); Alkaline Phosphatase 56 U/L (39-117); Anion Gap 12 (12-20); Aspartate Amino Transferase 22 U/L (5-31); Bilirubin Total 0.5 mg/dL (0.0-1.0); Blood Urea Nitrogen 13 mg/dL (9-16); Calcium 9.8 mg/dL (8.4-10.2); Carbon Dioxide 30 mmol/L (22-29); Chloride 103 mmol/L (96-108); Cholesterol 236 mg/dL (<200); Estimated Glomerular Filt Rate > 60; Glucose Fasting 100 mg/dL (60-99); HDL Cholesterol 58 mg/dL (>40); LDL Cholesterol Calculated 150 mg/dL (<100); Potassium 3.7 mmol/L (3.3-5.1); Sodium 141 mmol/L (135-145); TSH reflex Free T4 2.32 uIU/mL (0.32-4.0); Total Protein 7.2 g/dL (6.5-8.0); Triglycerides 144 mg/dL (<150)
== END 2023-12-11 08:25 | disposition home or self-care (01) ==
LOC: HO.HMGCLDS 08:24
PROVIDERS: PCP Internal Medicine; Visit Provider Internal Medicine
DX: Z00.01 Encounter for general adult medical examination with abnormal findings (principal); M85.80 Other specified disorders of bone density and structure, unspecified site; R73.02 Impaired glucose tolerance (oral); E78.9 Disorder of lipoprotein metabolism, unspecified; R03.0 Elevated blood-pressure reading, without diagnosis of hypertension
CPT/HCPCS: 36415; 80053; 80061; 84443; 85025

== ENCOUNTER 2024-04-05 08:32 | Outpatient (AMB) | payer MEDICARE, MEDICAID, SELFPAY ==
[2024-04-05 08:33] VITALS: BP 136/74; PULSE 78; RESP 16; TEMP 36.6; O2SAT 98; BMI 28.0
--- NOTE | 2024-04-05 08:33 | A.OFFPC_ITS ---
Vital Signs 3 04/05/24 08:33 Height 5 ft 1 in Weight 148 lb BMI 28.0 BP 136/74 Blood Pressure Location Rt brachial Position Sitting Respiration 16 Pulse 78 Temp 97.9 F Temp Source Oral Pulse Oximetry (%) 98 Oxygen Delivery Method Room Air Intake Visit Reasons: 6 month follow up Allergies Penicillins [PENICILLINS] Allergy (Unknown, Verified 04/05/24 08:34) RASH pseudoephedrine [Sudafed] Allergy (Unknown, Verified 04/05/24 08:34) Unknown Sulfa (Sulfonamide Antibiotics) [SULFA (SULFONAMIDE ANTIBIOTICS)] Allergy (Unknown, Verified 04/05/24 08:34) RASH Medication List - Last Reconciled 04/05/24 by Topher Amin MD albuterol sulfate 90 mcg/actuation (ProAir HFA) 1 inh inhalation Q4-6H PRN 30 days [Blood pressure monitor As directed] simvastatin 10 mg PO DAILY 90 days Tobacco use date assessed: 04/05/24 Fall risk assessment: No Falls in past year Last assessed Fall Risk: 04/05/24 Dental Screening Dental Screen Date: 04/05/24 Did you have a dental visit in the last 12 months?: Yes Did you have a dental problem in the last 6 months where you did not have access to dental care?: No Was dental information given to patient?: Patient has dentist HPI 6 month follow up 2 HPI0 Details Patient is 69-year-old female came in today follow-up appointment She could not tolerate simvastatin 10 mg, patient says that her lips start to tingle when she takes a medication I am changing it atorvastatin 20 mg, patient will repeat labs again in about 6 weeks Her LDL continued to be high She is also complaining of migraine headaches right-sided throbbing, she does have elevated blood pressure at home I have sent atenolol 25 mg to be started daily Labs are due fasting in early May Patient also have vitamin-D deficiency, continue vitamin-D supplement Intermittent asthma is stable She has lipoma of abdominal fold which is more so right flank area on the side nontender And is present chronically . [facility] Medical History Cellulitis Renal calculi Vaginal atrophy Vitamin D deficiency Cirrhosis High cholesterol Surgical History History of urologic surgery History of biopsy History of lithotripsy History of tubal ligation History of foot surgery Family History Father No problems noted. Mother Depression Mental health disorder Social History Housing: Apartment Alcohol intake: never Patient Tobacco Use Status: Never used Tobacco e-Cigarette/Vaping Use: Never Used Second Hand Smoke Exposure: No service: No Current occupational status: retired Cognitive needs: No Hearing needs: No Vision needs: Yes Female Reproductive History Menstrual Age of Menarche: 13 Questionnaire PHQ-9 Over the last 2 weeks, how often have you been bothered by any of the following problems? 1. Little interest or pleasure in doing things: not at all 2. Feeling down, depressed, or hopeless: not at all 3. Trouble falling or staying asleep, or sleeping too much: not at all 4. Feeling tired or having little energy: not at all 5. Poor appetite or overeating: not at all 6. Feeling bad about yourself - or that you are a failure or have let yourself or your family down: not at all 7. Trouble concentrating on things, such as reading the newspaper or watching television: not at all 8. Moving or speaking so slowly that other people could have noticed. Or the opposite - being so fidgety or restless that you have been moving around a lot more than usual: not at all 9. Thoughts that you would be better off or of hurting yourself in some way: not at all Total score: 0 Depression Screening Interpretation: Negative Depression Screening Done: Yes 85810 - PHQ-9 Billing: Yes Source: Developed by Drs. Jn Hampton, Delma Sheehan, Toñito Padilla and colleagues, with an educational saima from [employer]. Thrive Questionnaire Date Thrive assessed: 04/05/24 I am a: Patient What is your living situation today?: I have a steady place to live Within the past 12 months, did the food you bought not last and you didn't have the money to get more?: Never true Within the past 12 months, did you worry whether your food would run out before you got money to buy more?: Never true Do you have trouble paying for medicines?: No Do you have trouble getting transportation to medical appointments?: No Do you have trouble paying your heating and electricity bill?: No Do you have trouble taking care of your child, family member or friend?: No Do you have trouble with day-to-day activities such as bathing, preparing meals, shopping, managing finances, etc.?: No Are you currently unemployed and looking for a job?: No Are you interested in more education?: No Please select the resources that you would like help with: None Currently or been in a relationship where the following occur: No concerns reported THRIVE Score: 0 AUDIT C Alcohol Use Questionnaire (AUDIT-C) 1. How often do you have a drink containing alcohol?: Never 3. How often do you have six or more drinks on one occasion?: Never Total Score: 0 Score Reviewed/Action Taken: Yes HARDY-7 AMB Questionnaire HARDY-7 Date HARDY - 7 assessed: 04/05/24 Feeling nervous, anxious, or on edge: 0 = Not at all Not being able to stop or control worryin = Not at all Worrying too much about different things: 0 = Not at all Trouble relaxin = Not at all Being so restless that it is hard to sit still: 0 = Not at all Becoming easily annoyed or irritable: 0 = Not at all Feeling afraid as if something awful might happen: 0 = Not at all Total HARDY-7 score (0-4 normal; 5-9 mild; 10-14 moderate; 15-21 severe): 0 Source: Developed by Drs. Jn Hampton, Delma Sheehan, Toñito Padilla and colleagues, with an educational saima from [employer]. HARDY-7 Assessment Billing HARDY-7 Assessment Tool: HARDY-7 Assessment 91973 Review of Systems Const Denies chills and Denies fever(s) ENT Denies epistaxis and Denies nasal discharge Card Denies chest pain Resp Denies chest congestion, Denies cough and Denies hemoptysis GI Denies diarrhea and Denies nausea Skin/Breast Denies rash Neuro Reports no additional complaints Psych Reports no additional complaints Endo Reports no additional complaints Physical exam (Primary Care) Vital Signs: Last Vital Signs Temp 97.9 F 04/05/24 08:33 Pulse 78 04/05/24 08:33 Resp 16 04/05/24 08:33 BP 136/74 04/05/24 08:33 Pulse Ox 98 04/05/24 08:33 Oxygen Delivery Method Room Air 04/05/24 08:33 BMI result Body Mass Index 28.0 Tobacco/Smoking Status: Tobacco use Status Tobacco use date assessed 04/05/24 04/05/24 08:37 Patient Tobacco Use Status Never used Tobacco 04/05/24 08:37 Tobacco use type 10/21/23 13:38 e-Cigarette/Vaping Use Never Used 04/05/24 08:37 PHQ-9: PHQ-9 Score PHQ-9: Total score 0 04/05/24 08:42 Depression Screening Interpretation: Negative Thrive Assessment: Date of Thrive Assessment Date Thrive assessed 04/05/24 04/05/24 08:42 Currently or been in a relationship where the following occur: No concerns reported Const General: cooperative, comfortable and no acute distress Orientation/consciousness: patient oriented x3 HENMT Head: Yes normocephalic Eyes General: appearance normal, both eyes and all related structures Neck Neck: Yes supple Resp Effort & Inspection: normal respiratory effort, no cough and no stridor Cardio Rhythm: regular rhythm Heart sounds: S1 normal heart sound present and S2 normal heart sound present Skin General skin exam: turgor normal Full body images: 2 1. Now size of 3 in x 2 in nontender Neuro General: patient oriented x3, tone normal and moves all extremities Extrem Right lower extremity: no edema Left lower extremity: no edema Coding Level of Care Code Est Pt Level 4 (89581) Complex EM visit Add On G2211 Diagnoses Lipid disorder E78.9 Impaired fasting blood sugar R73.01 Mild intermittent asthma without complication J45.20 Asthma complication type: uncomplicated Asthma severity: mild Vitamin D deficiency E55.9 Lipoma of abdominal wall D17.1 Hypertension, essential I10 Additional Codes HARDY-7 Assessment Billing - HARDY-7 Assessment Tool: HARDY-7 Assessment 09641 ([id number]) PHQ-9 - 58432 - PHQ-9 Billing: Yes ([id number]) Assessment & Plan Assessment & Plan (1) Lipid disorder: Code(s): E78.9 - Disorder of lipoprotein metabolism, unspecified Category: Medical (2) Impaired fasting blood sugar: Code(s): R73.01 - Impaired fasting glucose Category: Medical (3) Intermittent asthma: Code(s): J45.20 - Mild intermittent asthma, uncomplicated Category: Medical Qualifiers: Asthma complication type: uncomplicated Asthma severity: mild Q ualified Code(s): J45.20 - Mild intermittent asthma, uncomplicated (4) Vitamin D deficiency: Code(s): E55.9 - Vitamin D deficiency, unspecified Category: Medical (5) Lipoma of abdominal wall: Code(s): D17.1 - Benign lipomatous neoplasm of skin and subcutaneous tissue of trunk Category: Medical (6) Hypertension, essential: Code(s): I10 - Essential (primary) hypertension Category: Medical Plan Patient is 69-year-old female came in today follow-up appointment She could not tolerate simvastatin 10 mg, patient says that her lips start to tingle when she takes a medication I am changing it atorvastatin 20 mg, patient will repeat labs again in about 6 weeks Her LDL continued to be high She is also complaining of migraine headaches right-sided throbbing, she does have elevated blood pressure at home I have sent atenolol 25 mg to be started daily Labs are due fasting in early May Patient also have vitamin-D deficiency, continue vitamin-D supplement Intermittent asthma is stable She has lipoma of abdominal fold which is more so right flank area on the side nontender And is present chronically . Orders: Orders 2 Comprehensive [place]. Panel Fast Today D17.1 - Benign lipomatous neoplasm of skin and subcutaneous tissue of trunk, E55.9 - Vitamin D deficiency, unspecified, E78.9 - Disorder of lipoprotein metabolism, unspecified, J45.20 - Mild intermittent asthma, uncomplicated, R73.01 - Impaired fasting glucose Vitamin D 25-OH (D2 and D3) Today D17.1 - Benign lipomatous neoplasm of skin and subcutaneous tissue of trunk, E55.9 - Vitamin D deficiency, unspecified, E78.9 - Disorder of lipoprotein metabolism, unspecified, J45.20 - Mild intermittent asthma, uncomplicated, R73.01 - Impaired fasting glucose Hemoglobin A1c Today E55.9 - Vitamin D deficiency, unspecified, E78.9 - Disorder of lipoprotein metabolism, unspecified, J45.20 - Mild intermittent asthma, uncomplicated, R73.01 - Impaired fasting glucose Lipid Panel Today D17.1 - Benign lipomatous neoplasm of skin and subcutaneous tissue of trunk, E55.9 - Vitamin D deficiency, unspecified, E78.9 - Disorder of lipoprotein metabolism, unspecified, J45.20 - Mild intermittent asthma, uncomplicated, R73.01 - Impaired fasting glucose Medications: New 2 atenolol 25 mg PO DAILY 30 tabs 0RF atorvastatin 20 mg PO BEDTIME 90 tabs 0RF Discontinued 2 simvastatin Discontinued Reason: Duplicate 10 mg PO DAILY 90 days 90 tabs 1RF
--- OUTSIDE RECORDS SUMMARY | 2024-04-05 08:56 | XMS_ITS | Encounter Summary ---
Author Organization [facility] Address [address] [place] [address] [address] [place] [address] Care Team Providers Care Medical Reception Specialist Name Role Phone Unavailable Primary Care Provider Unavailabl e Encounter Details Date Type Department Care Team (Latest Contact Info) Description 05/23/2021 Abstract C CONVERSIONS Dental, Provider, DDS Social History Tobacco Use Types Packs/Day Years Used Date Smoking Tobacco: Never Assessed Comments Unknown Sex and Gender Information Value Date Recorded Sex Assigned at Female 12/16/2021 10:22 AM EDT Legal Sex Female 10:22 AM EDT Gender Identity Female 12/16/2021 10:22 AM EDT Sexual Orientation Straight 12/16/2021 10 :22 AM EDT documented as of this encounter Plan of Treatment Not on file documented as of this encounter Visit Diagnoses Not on filedocumented in this encounter
--- OUTSIDE RECORDS SUMMARY | 2024-04-05 08:56 | XMS_ITS | Encounter Summary ---
Author Organization [facility] Address [address] [place] [address] [address] [place] [address] Care Team Providers Care Ebay Reseller Name Role Phone Unavailable Primary Care Provider Unavailabl e Encounter Details Date Type Department Care Team (Latest Contact Info) Description 02/23/2018 Abstract C CONVERSIONS Dental, Provider, DDS Social [...]
--- OUTSIDE RECORDS SUMMARY | 2024-04-05 08:56 | XMS_ITS | Encounter Summary ---
Author Organization [facility] Address [address] [place] [address] [address] [place] [address] Care Team Providers Care Tile Mechanic Helper Name Role Phone Unavailable Primary Care Provider Unavailabl e Encounter Details Date Type Department Care Team (Latest Contact Info) Description 02/01/2020 Abstract C CONVERSIONS Dental, Provider, DDS Social [...]
--- OUTSIDE RECORDS SUMMARY | 2024-04-05 08:56 | XMS_ITS | Encounter Summary ---
Author Organization [facility] Address [address] [place] [address] Care Team Providers Care Hedis Abstractor Name Role Phone Unavailable Primary Care Provider Unavailabl e Encounter Details Date Type Department Care Team (Late st Contact Info) Description 04/18/2022 Abstract [facility] [address], [place] [phone] Cesar Umaña DDS [address], [place] [phone] Social History Tobacco Use Types Packs/Day Years Used Date Smoking Tobacco: Never Passive Smoke Exposure: Never Smokeless Tobacco: Never Alcohol Use Standard Drinks/Week Comments Never 0 (1 standard drink = 0.6 oz pur e alcohol) Comments Unknown Sex and Gender Information Value Date Recorded Sex Assigned at Female 12/16/2021 10:22 AM EDT Legal Sex Female 10:22 AM EDT Gender Identity Female 12/16/2021 10:22 AM EDT Sexual Orientation Straight 12/16/2021 10 :22 AM EDT COVID-19 Exposure Response Date Recorded In the last 10 days, have yo u been in contact with someone who was confirmed or suspected to have Coronavirus/COVID-19? No / Unsure 04/11/2022 9:43 AM EST documented as of this encounter Plan of Treatment Not on file documented as of this encounter Visit Diagnoses Not on filedocumented in this encounter
--- OUTSIDE RECORDS SUMMARY | 2024-04-05 08:56 | XMS_ITS | Clinical Summary ---
Author Organization [employer] [facility] Address [address] [place] [address] [address]t [place] [address] Care Team Providers Care Drivematic Machine Operator Name Role Phone Unavailable Primary Care Provider Unavailabl e Allergies Active Allergy Reactions Criticality Noted Date Comments Penicillin G 03/24/2023 Other reaction(s): rash/swelling Penicillins Hives 10/06/2012 Pseudoephedrine Hives 12/22/2022 Sulfa Antibiotics Hives 10/06/2012 Other reaction(s): Unknown Medications albuterol 108 (90 Base) MCG/ACT inhaler INHALE 1 PUFF BY MOUTH EVERY 4 TO 6 HOURS NEEDED FOR SHORTNESS OF BREATH OR WHEEZING 3 Active simvastatin (Zocor) 10 MG tablet Take 10 mg by mouth in the morning. 3 Active Active Problems Problem Noted Date Diagnosed Date Gingival bleeding 02/05/2023 Dental calculus 05/09/2022 Localized gingival recession 05/09/2022 Missing teeth, acquired 05/09/2022 Periodontal disease 04/11/2022 Social History Tobacco Use Types Packs/Day Years Used Date Smoking Tobacco: Never Passive Smoke Exposure: Never Smokeless Tobacco: Never Tobacco Cessation:Counseling Given: Not Answered Alcohol Use Standard Drinks/Week Comments Never 0 (1 standard drink = 0.6 oz pur e alcohol) Comments Unknown Sex and Gender Information Value Date Recorded Sex Assigned at Female 12/16/2021 10:22 AM EDT Legal Sex Female 10:22 AM EDT Gender Identity Female 12/16/2021 10:22 AM EDT Sexual Orientation Straight 12/16/2021 10 :22 AM EDT Last Filed Vital Signs Vital Sign Reading Time Taken Comments Blood Pressure 120/72 04/15/2023 10:59 AM EST Pulse 84 04/15/2023 10:59 AM EST Temperature - - Respiratory Rate - - Oxygen Saturation - - Inhaled Oxygen Concentration - - Weight - - Height - - Body Mass Index - - Plan of Treatment Health Maintenance Due Date Last Done Comments CT Colonography 1953 Colonoscopy 1953 Colorectal Cancer Screening 1953 Depression Screening 1953 FIT DNA/Cologuard 1953 FIT 1953 FOBT 1953 SDOH Screening 1953 Sigmoidoscopy 1953 Alcohol/Substance Use Screening 1965 Hepatitis C Screening 1971 Hepatitis A Vaccines (1 of 2 - Risk 2-dose series) 01/15/1972 Mammogram 1993 Zoster Vaccines (1 of 2) 2003 Hepatitis B Vaccines (1 of 3 - Risk 3-dose series) 2013 RSV Patients and Patients Aged 60 years or older (1 - Risk 60-74 years 1-dose series) 2013 Pneumococcal Vaccine: 50+ Years (2 of 2 - PCV) 02/26/2019 02/26/2018 Dental Oral Exam 08/08/2023 02/05/2023, 12/16/2021 Dental Prophylaxis 08/08/2023 02/05/2023, 05/09/2022 COVID-19 Vaccine (4 2023-2 5 season) 2023 02/26/2021, 07/19/2020, 06/21/2020 Influenza Vaccine (#1) 2023 Dental X-Ray: Bitewings 02/07/2024 02/06/20 23, 12/16/2021 Tobacco Screening 04/15/2024 04/15/2023 DTaP/Tdap/Td Vaccines (2 - T d or Tdap) 07/26/2025 07/27/2015 Dental X-Ray: Full Mouth 02/06/2026 02/05/2023 HIB Vaccines Aged Out No longer eligi ble based on patient's age to complete this topic HPV Vaccines Aged Out No longer eligi ble based on patient's age to complete this topic IPV Vaccines Aged Out No longer eligi ble based on patient's age to complete this topic Meningococcal Vaccine Aged Out No reanna emma eligible based on patient's age to complete this topic RSV under 20 months Aged Out No longe r eligible based on patient's age to complete this topic Rotavirus Vaccines Aged Out No longer eligible based on patient's age to complete this topic Procedures Procedure Name Priority Date/Time Associated Diagnosis Comments PROPHYLAXIS - ADULT Routine 02/05/2023 1 1:00 AM EST Periodontal disease Dental calculus Gingival bleeding INTRAORAL - COMPLETE SERIES OF RADIOGRAPHIC IMAGES Routine 02/05/2023 11:00 AM EST Periodontal disease Missing teeth, acquired Localized gingival recession Dental calculus Gingival bleeding PERIODIC ORAL EVALUATION - ESTABLISHED PATIENT Routine 02/05/2023 11:00 AM EST Periodontal disease Missing teeth, acquired Localized gingival recession Dental calculus Gingival bleeding Fractured dental gnosticist with loss of material from Last 3 Months or Most Recently Relevant to Health Maintenance Insurance [place]
== END 2024-04-05 09:03 | disposition home or self-care (01) ==
PROVIDERS: PCP Internal Medicine; Visit Provider Internal Medicine
DX: E78.9 Disorder of lipoprotein metabolism, unspecified (principal); R73.01 Impaired fasting glucose; J45.20 Mild intermittent asthma, uncomplicated; E55.9 Vitamin D deficiency, unspecified; D17.1 Benign lipomatous neoplasm of skin and subcutaneous tissue of trunk; I10 Essential (primary) hypertension

== ENCOUNTER → 2024-04-05 08:32 | Outpatient (BNVA) | payer MEDICARE, MEDICAID, SELFPAY | PROVIDERS: PCP Internal Medicine; Visit Provider Internal Medicine | DX: E78.9 Disorder of lipoprotein metabolism, unspecified (principal); R73.01 Impaired fasting glucose; J45.20 Mild intermittent asthma, uncomplicated; E55.9 Vitamin D deficiency, unspecified; D17.1 Benign lipomatous neoplasm of skin and subcutaneous tissue of trunk; I10 Essential (primary) hypertension | CPT/HCPCS: 96127; 99212 ==

== ENCOUNTER 2024-04-21 08:29 | Outpatient (AMB) | payer MEDICARE, MEDICAID, SELFPAY ==
--- NOTE | 2024-04-21 08:32 | A.OFFPC_ITS ---
Intake Visit Reasons: 3 week TV visit Allergies Penicillins [PENICILLINS] Allergy (Unknown, Verified 04/05/24 08:34) RASH pseudoephedrine [Sudafed] Allergy (Unknown, Verified 04/05/24 08:34) Unknown Sulfa (Sulfonamide Antibiotics) [SULFA (SULFONAMIDE ANTIBIOTICS)] Allergy (Unknown, Verified 04/05/24 08:34) RASH Medication List - Last Reconciled 04/21/24 by Topher Amin MD albuterol sulfate 90 mcg/actuation (ProAir HFA) 1 inh inhalation Q4-6H PRN 30 da ys atenolol 25 mg PO DAILY atorvastatin 20 mg PO BEDTIME [Blood pressure monitor As directed] Tobacco use date assessed: 04/05/24 Dental Screening Dental Screen Date: 04/05/24 HPI 3 week TV visit HPI Details History - The patient is a 69-year-old female pr esenting with follow-up for cholesterol and blood pressure medication management. - She is tolerating the hyperlipidemia m edication without difficulty. she was switched to atrovastatin 20 mg, when she couldnt take simvastatin - Reports intermittent headaches, noting improvement in comparison to previous occurrences but with occasional mild pain. she is now taking atenolol 25 mg daily - The patient confirms adherence to both the cholesterol and antihypertensive medications provided for management of essential hypertension and associated headaches. Problem List - Hyperlipidemia - Essential Hypertension Patient Instructions - Continue taking both cholesterol and b lood pressure medications as prescribed. - Contact the office or seek care if the re are any new or worsening symptoms. - A refill for your medications will be sent as planned. Review of Systems - General: No fever no chills - Neurological: no dizziness - Ear nose throat: No sore throat no hearing difficulty no ear pain - Cardiovascular: No syncope, no chest pain, no palpitations - Gastrointestinal: No nausea vomiting or diarrhea - Endocrine: No polyuria polydipsia no heat intolerance - Genitourinary: No dysuria , no blood in urine [facility] Medical History Cellulitis Renal calculi Vaginal atrophy Vitamin D deficiency Cirrhosis High cholesterol Surgical History History of urologic surgery History of biopsy History of lithotripsy History of tubal ligation History of foot surgery Family History Father No problems noted. Mother Depression Mental health disorder Social History Housing: Apartment Alcohol intake: never Patient Tobacco Use Status: Never used Tobacco e-Cigarette/Vaping Use: Never Used Second Hand Smoke Exposure: No service: No Current occupational status: retired Cognitive needs: No Hearing needs: No Vision needs: Yes Female Reproductive History Menstrual Age of Menarche: 13 Questionnaire Thrive Questionnaire Date Thrive assessed: 04/05/24 HARDY-7 AMB Questionnaire HARDY-7 Date HARDY - 7 assessed: 04/05/24 Source: Developed by Drs. Jn Hampton, Delma Sheehan, Toñito Padilla and colleagues, with an educational saima from Alexis Bittar. Physical exam (Primary Care) Tobacco/Smoking Status: Tobacco use Status Tobacco use date assessed 04/05/24 04/21/24 08:33 Patient Tobacco Use Status Never used Tobacco 04/21/24 08:33 Tobacco use type 10/21/23 13:38 e-Cigarette/Vaping Use Never Used 04/21/24 08:33 Thrive Assessment: Date of Thrive Assessment Date Thrive assessed 04/05/24 04/21/24 08:33 Telehealth Telehealth Telehealth Platform: [facility] Location of provider rendering services: practice address Location of patient: address on file Patient Identification confirmed using: Name, : Yes Telehealth method: voice only Patient verbally consented to treatment: Yes Patient verbally consented to billing insurance company: Yes Patient informed of any privacy concerns related to visit: Yes Minutes spent on Phone/Video with Pt.: 13 Coding Level of Care Code Tele Est Pt Level 3 (93654) Diagnoses Lipid disorder E78.9 Hypertension, essential I10 Generalized headaches R51.9 Assessment & Plan Assessment & Plan (1) Lipid disorder: Code(s): E78.9 - Disorder of lipoprotein metabolism, unspecified Category: Medical (2) Hypertension, essential: Code(s): I10 - Essential (primary) hypertension Category: Medical (3) Generalized headaches: Code(s): R51.9 - Headache, unspecified Category: Medical Plan History - The patient is a 69-year-old female presenting with follow-up for cholesterol and blood pressure medication management. - She is tolerating the hyperlipidemia medication without difficulty. she was switched to atrovastatin 20 mg, when she couldnt take simvastatin - Reports intermittent headaches, noting improvement in comparison to previous occurrences but with occasional mild pain. she is now taking atenolol 25 mg daily - The patient confirms adherence to both the cholesterol and antihypertensive medications provided for management of essential hypertension and associated headaches. Problem List - Hyperlipidemia - Essential Hypertension Patient Instructions - Continue taking both cholesterol and blood pressure medications as prescribed. - Contact the office or seek care if there are any new or worsening symptoms. - A refill for your medications will be sent as planned. Medications: Refilled atenolol 25 mg PO DAILY 90 tabs 0RF atorvastatin 20 mg PO BEDTIME 90 tabs 0RF
--- OUTSIDE RECORDS SUMMARY | 2024-04-21 08:52 | XMS_ITS | Encounter Summary ---
Author Organization [employer] [facility] Address [address] [facility] [address]t [place] [address] Care Team Providers Care Psychiatric Aide Name Role Phone Unavailable Primary Care Provider Unavailabl e Encounter Details Date Type Department Care Team (Late st Contact Info) Description 04/18/2022 Abstract [facility] ADULT D[facility]AL [address] [place], [place] [phone] Cesar Umaña DDS [address] [place], [place] [phone] Social History Tobacco Use Types Packs/Day Years [...]
--- OUTSIDE RECORDS SUMMARY | 2024-04-21 08:52 | XMS_ITS | Encounter Summary ---
Author Organization [facility] Address [address] [place] [address] 7t [place] [address] Care Team Providers Care Biofuels Production Manager Name Role Phone Unavailable Primary Care Provider [...]
--- OUTSIDE RECORDS SUMMARY | 2024-04-21 08:52 | XMS_ITS | Encounter Summary ---
Author Organization [facility] Address [address] [place] [address] 7t [place] [address] Care Team Providers Care Sterile Tech Name Role Phone Unavailable Primary Care Provider [...]
--- OUTSIDE RECORDS SUMMARY | 2024-04-21 08:52 | XMS_ITS | Encounter Summary ---
Author Organization [facility] Address [address] [place] [address] [address]t [place] [address] Care Team Providers Care Engraver Automatic Name Role Phone Unavailable Primary Care Provider [...]
--- OUTSIDE RECORDS SUMMARY | 2024-04-21 08:52 | XMS_ITS | Clinical Summary ---
Author Organization [facility] Address [address] [place] [address] 7t [place] [address] Care Team Providers Care Police Sergeant Precinct Name Role Phone Unavailable Primary Care Provider [...] recession Dental calculus Gingival bleeding Fractured dental jain with loss of material from Last 3 Months or Most Recently Relevant to Health Maintenance Insurance [place]
== END 2024-04-21 09:00 | disposition home or self-care (01) ==
LOC: HO.HMCC 08:29
PROVIDERS: PCP Internal Medicine; Visit Provider Internal Medicine
DX: E78.9 Disorder of lipoprotein metabolism, unspecified (principal); I10 Essential (primary) hypertension; R51.9 Headache, unspecified

== ENCOUNTER → 2024-04-21 08:29 | Outpatient (BNVA) | payer MEDICARE, MEDICAID, SELFPAY | PROVIDERS: PCP Internal Medicine; Visit Provider Internal Medicine ==

== ENCOUNTER 2024-05-21 07:25 | Outpatient (REF) | payer MEDICARE, MEDICAID, SELFPAY ==
--- OUTSIDE RECORDS SUMMARY | 2024-05-21 07:27 | XMS_ITS | Encounter Summary ---
Author Organization [facility] Address [address] [place] [address] [address]t [place] [address] Care Team Providers Care General Road Supervisor Name Role Phone Unavailable Primary Care Provider [...]
--- OUTSIDE RECORDS SUMMARY | 2024-05-21 07:27 | XMS_ITS | Clinical Summary ---
Author Organization [employer] [facility] Address [address] [place] [address] 7t [place] [address] Care Team Providers Care Environmental Construction Engineer Name Role Phone Unavailable Primary Care Provider [...] recession Dental calculus Gingival bleeding Fractured dental mosque with loss of material from Last 3 Months or Most Recently Relevant to Health Maintenance [facility] MEDICAID STAND ADULT
--- OUTSIDE RECORDS SUMMARY | 2024-05-21 07:27 | XMS_ITS | Encounter Summary ---
Author Organization [facility] Address [address] [place] [address] 7t [place] [address] Care Team Providers Care Gage Designer Name Role Phone Unavailable Primary Care Provider [...]
--- OUTSIDE RECORDS SUMMARY | 2024-05-21 07:27 | XMS_ITS | Encounter Summary ---
Author Organization [employer] [facility] Address [address] [facility] 7t [place] [address] Care Team Providers Care Quality Assurance Supervisor Trim Name Role Phone Unavailable Primary Care Provider Unavailabl e Encounter Details Date Type Department Care Team (Late st Contact Info) Description 04/18/2022 Abstract [facility] ADULT D[facility] [address] [place], [place] [phone] Cesar Umaña DDS [address] [place], [place] [phone] Social History Tobacco Use Types Packs/Day Years [...]
--- OUTSIDE RECORDS SUMMARY | 2024-05-21 07:27 | XMS_ITS | Encounter Summary ---
Author Organization [facility] Address [address] [place] [address] 7t [place] [address] Care Team Providers Care Angledozer Operator Name Role Phone Unavailable Primary Care [...]
[2024-05-21 11:59] LABS: Estimated Average Glucose 108 mg/dL; Hemoglobin A1C 123.5827 umol/L; Hemoglobin A1c % 5.4 % (<6.0); Total Hemoglobin (HGBA1C) 3451.9802 umol/L
[2024-05-21 12:01] LABS: Alanine Aminotransferase 15 U/L (0-31); Albumin Level 4.2 g/dL (3.5-5.0); Alkaline Phosphatase 55 U/L (39-117); Anion Gap 10 (12-20); Aspartate Amino Transferase 21 U/L (5-31); Bilirubin Total 0.5 mg/dL (0.0-1.0); Blood Urea Nitrogen 20 mg/dL (9-16); Calcium 9.1 mg/dL (8.4-10.2); Carbon Dioxide 27 mmol/L (22-29); Chloride 108 mmol/L (96-108); Cholesterol 183 mg/dL (<200); Estimated Glomerular Filt Rate > 60; Glucose Fasting 98 mg/dL (60-99); HDL Cholesterol 67 mg/dL (>40); LDL Cholesterol Calculated 103 mg/dL (<100); Potassium 3.8 mmol/L (3.3-5.1); Sodium 141 mmol/L (135-145); Triglycerides 68 mg/dL (<150)
[2024-05-26 13:27] LABS: Vitamin D 25-OH, D2 <4 ng/mL; Vitamin D 25-OH, D3 18 ng/mL; Vitamin D 25-OH, Total 18 ng/mL (30-100)
== END 2024-05-21 07:26 | disposition home or self-care (01) ==
LOC: HO.HMGCLDS 07:25
PROVIDERS: PCP Internal Medicine; Visit Provider Internal Medicine
DX: R73.01 Impaired fasting glucose (principal); J45.20 Mild intermittent asthma, uncomplicated; E78.9 Disorder of lipoprotein metabolism, unspecified; E55.9 Vitamin D deficiency, unspecified; D17.1 Benign lipomatous neoplasm of skin and subcutaneous tissue of trunk
CPT/HCPCS: 36415; 80053; 80061; 82306; 83036

== ENCOUNTER 2024-05-26 11:42 | Outpatient (REF) | payer MEDICARE, MEDICAID, SELFPAY ==
--- NOTE | ~2024-05-26 | XR_ITS ---
CLINICAL HISTORY: N20.0 - Calculus of kidney 1 view abdomen Comparison: None Findings: No pneumoperitoneum or pneumatosis. Normal bowel gas pattern 2 left pelvic calcifications one measuring 1.1 cm in length in the other 6 mm in length could represent distal left ureteral calculi. No acute fractures. IMPRESSION: 2 left pelvic calcifications one measuring 1.1 cm in length in the other 6 mm in length could represent distal left ureteral calculi. Consider correlating with CT as clinically necessary. This document has been electronically signed by: Frederick Salas MD on 05/27/2024 09:50:22
--- OUTSIDE RECORDS SUMMARY | 2024-05-26 14:18 | XMS_ITS | Encounter Summary ---
Author Organization [facility] Address [address] [place] [address] [address]t [place] [address] Care Team Providers Care Job Order Clerk Name Role Phone Unavailable Primary Care Provider [...]
--- OUTSIDE RECORDS SUMMARY | 2024-05-26 14:18 | XMS_ITS | Clinical Summary ---
Author Organization [facility] Address [address] [place] [address] [address] [place] [address] Care Team Providers Care Building Insulation Installer Name Role Phone Unavailable Primary Care Provider [...] recession Dental calculus Gingival bleeding Fractured dental spiritism with loss of material from Last 3 Months or Most Recently Relevant to Health Maintenance [facility] ST[facility] ADULT D[facility]AL-[facility] MEDICAID STAND ADULT
--- OUTSIDE RECORDS SUMMARY | 2024-05-26 14:18 | XMS_ITS | Encounter Summary ---
Author Organization [facility] Address [address] [place] [address] [address]t [place] [address] Care Team Providers Care Barrel Assembler Helper Name Role Phone Unavailable Primary Care [...]
--- OUTSIDE RECORDS SUMMARY | 2024-05-26 14:18 | XMS_ITS | Encounter Summary ---
Author Organization [facility] Address [address] [facility] 7t [place] [address] Care Team Providers Care Animal Services Officer Name Role Phone Unavailable Primary Care Provider Unavailabl e Encounter Details Date Type Department Care Team (Late st Contact Info) Description 04/18/2022 Abstract [facility] ADULT DENTAL [address] [place], [place] [phone] Cesar Umaña DDS [address] [place], [place] [phone] Social History Tobacco Use Types Packs/Day Years [...]
--- OUTSIDE RECORDS SUMMARY | 2024-05-26 14:19 | XMS_ITS | Encounter Summary ---
Author Organization [facility] Address [address] [place] [address] [address] [place] [address] Care Team Providers Care Developmental Psychologist Name Role Phone Unavailable Primary Care Provider [...]
== END 2024-05-26 11:43 | disposition home or self-care (01) ==
LOC: HO.XRAY 11:42
PROVIDERS: PCP Internal Medicine; Visit Provider Nurse Practitioner Family
DX: N20.0 Calculus of kidney (principal)
CPT/HCPCS: 74018

== ENCOUNTER → 2024-05-26 11:48 | Outpatient (BNV) | payer MEDICARE, MEDICAID, SELFPAY | PROVIDERS: PCP Internal Medicine; Visit Provider Radiology Diagnostic Radiology | DX: M61.452 Other calcification of muscle, left thigh (principal) | CPT/HCPCS: 74018 ==

== ENCOUNTER 2024-06-01 10:23 | Outpatient (REF) | payer MEDICARE, MEDICAID, SELFPAY ==
--- OUTSIDE RECORDS SUMMARY | 2024-06-01 12:57 | XMS_ITS | Encounter Summary ---
Author Organization [facility] Address [address] [place] [address] [address]t [place] [address] Care Team Providers Care Data Capture Clerk Name Role Phone Unavailable Primary Care [...]
--- OUTSIDE RECORDS SUMMARY | 2024-06-01 12:57 | XMS_ITS | Encounter Summary ---
Author Organization [facility] Address [address] [place] [address] [address]t [place] [address] Care Team Providers Care Semiconductor Wafers Marker Name Role Phone Unavailable Primary Care Provider [...]
--- OUTSIDE RECORDS SUMMARY | 2024-06-01 12:57 | XMS_ITS | Encounter Summary ---
Author Organization [employer] [facility] Address [address] [facility] 7t [place] [address] Care Team Providers Care Plane Tender Name Role Phone Unavailable Primary Care Provider Unavailabl e Encounter Details Date Type Department Care Team (Late st Contact Info) Description 04/18/2022 Abstract [facility] ADULT DENTAL [address] [place], [place] [phone] Cesar Umaña DDS [address] [place], [place] [phone] Social History Tobacco Use Types Packs/Day Years [...]
--- OUTSIDE RECORDS SUMMARY | 2024-06-01 12:57 | XMS_ITS | Encounter Summary ---
Author Organization [facility] Address [address] [place] [address] [address]t [place] [address] Care Team Providers Care Coal Feeder Operator Name Role Phone Unavailable Primary Care [...]
--- OUTSIDE RECORDS SUMMARY | 2024-06-01 12:57 | XMS_ITS | Clinical Summary ---
Author Organization [employer] [facility] Address [address] [place] [address] [address]t [place] [address] Care Team Providers Care Production Sampler Name Role Phone Unavailable Primary Care Provider [...] recession Dental calculus Gingival bleeding Fractured dental mu-ism with loss of material from Last 3 Months or Most Recently Relevant to Health Maintenance [facility] STAND ADULT D[facility]AL-[facility] MEDICAID STAND ADULT
[2024-06-01 16:43] LABS: Urine Cytology See Pathology rpt
== END 2024-06-01 10:24 | disposition home or self-care (01) ==
LOC: HO.LAB 10:23
PROVIDERS: PCP Internal Medicine; Visit Provider Nurse Practitioner Family
DX: R31.29 Other microscopic hematuria (principal); N20.0 Calculus of kidney; R89.6 Abnormal cytological findings in specimens from other organs, systems and tissues
CPT/HCPCS: 81003; 88112; 99212

== ENCOUNTER 2024-06-01 10:23 | Outpatient (AMB) | payer MEDICARE, MEDICAID, SELFPAY ==
--- NOTE | 2024-06-01 10:35 | A.OFFVIS_ITS ---
Intake Visit Reasons: KUB f/U Intake Note: Patient is present for KUB F/U Urology Medication:NONE Antibiotic Allergy:PENICILLINS,SULFA Blood Thinner:NONE Procurement Intern Required: No Allergies Penicillins [PENICILLINS] Allergy (Unknown, Verified 06/01/24 10:53) RASH pseudoephedrine [Sudafed] Allergy (Unknown, Verified 06/01/24 10:53) Unknown Sulfa (Sulfonamide Antibiotics) [SULFA (SULFONAMIDE ANTIBIOTICS)] Allergy (Unknown, Verified 06/01/24 10:53) RASH Medication List - Last Reconciled 06/01/24 by GABRIELA Carrero atenolol 25 mg PO DAILY atorvastatin 20 mg PO BEDTIME [Blood pressure monitor As directed] HPI Comments Details: Karen is a very pleasant 69-year-old female patient of Dr. Amin. She has a past medical history of cellulitis, nephrolithiasis, vaginal atrophy, vi tamin-D deficiency, cirrhosis, and hyperlipidemia. She presents to the office today for follow-up of her microscopic hematuria and nephrolithiasis. In discussion with the patient today she reports to be doing and feeling well. Recent KUB results were reviewed 06/10 to left pelvic calcifications 1 measuring 1.1 cm in length and the other 6 mm in length could represent distal left ureter calculi. Urine cytology 05/09 Atypical urothelial cells. When asked she denies any previous history of workplace chemical exposure and or nicotine dependence. She discusses her longstanding history of nephrolithiasis and having undergone intervention with ureteroscopy and stent placement. We discussed potential causes of nephrolithiasis as well as further intervention to include obtaining CT urogram given history of microscopic hematuria with abnormal cytology as well as current nephrolithiasis in stone burden. When asked she denies urinary urgency, urinary frequency, incontinence, nocturia, hematuria, dysuria, foul smelling urine, changes to urinary stream, flank pain, fever, and or chills. She is happy with her current voiding parameters. We discussed potential causes of microscopic hematuria. Discussed further workup to include CT urogram as well as cystoscopy. Risks and benefits of these interventions were discussed. She otherwise offers no other issues or concerns at this time. Plan The management of nephrolithiasis includes obtaining a CT scan to assess the stone's size and location as well as further assessment of microscopic hematuria. Based on these findings, treatment could involve extracorporeal shock wave lithotripsy or ureteroscopy. The patient has been informed about the risks and benefits of these procedures, and consent for the CAT scan has been obtained. Patient was informed and verbally consented to the use of an ambient scribe for clinic note documentation during this visit. Discussion Notes I discussed with the patient the management and treatment options for nephrolithiasis. We agreed that a CT scan is necessary to evaluate the stones in detail as well as microscopic hematuria in the setting of abnormal cytology. We reviewed potential interventions such as extracorporeal shock wave lithotripsy and ureteroscopy in case surgical intervention is deemed necessary. We also outlined the procedures' risks, benefits, and alternatives. The patient is aware that further steps depend on the CT scan results and has consented to proceed with the diagnostic imaging. Follow-up logistics will hinge on obtaining insurance approval and scheduling. [facility] Medical History Cellulitis Renal calculi Vaginal atrophy Vitamin D deficiency Cirrhosis High cholesterol Surgical History History of urologic surgery History of biopsy History of lithotripsy History of tubal ligation History of foot surgery Family History Father No problems noted. Mother Depression Mental health disorder Social History Housing: Apartment Alcohol intake: never Patient Tobacco Use Status: Never used Tobacco e-Cigarette/Vaping Use: Never Used Second Hand Smoke Exposure: No service: No Current occupational status: retired Cognitive needs: No Hearing needs: No Vision needs: Yes Female Reproductive History Menstrual Age of Menarche: 13 Review of Systems Const Reports no additional complaints Eyes Reports no additional complaints ENT Reports no additional complaints Card Reports as per HPI Resp Reports no additional complaints GI Reports no additional complaints Reports as per HPI Musc Reports no additional complaints Neuro Reports no additional complaints Psych Reports no additional complaints Endo Reports no additional complaints [place]/Lymph Reports no additional complaints Aller/Immun Reports no additional complaints Physical Exam Const General: cooperative, healthy appearing, comfortable, no acute distress, well developed, alert and awake Orientation/consciousness: patient oriented x3 Limitations: no limitations HEENT Head: Yes normal to inspection, Yes normocephalic and Yes atraumatic Ears: hearing grossly normal bilaterally Eyes General: appearance normal, both eyes and all related structures Neck Neck: Yes normal visual inspection and Yes trachea midline Chest Chest palpation & inspection: normal inspection of the chest Resp Effort & Inspection: normal respiratory effort and able to speak in complete sentences Cardio Rate: regular rate GI Inspection: Yes normal to inspection General: Yes no CVA tenderness Back/Spine/Pelvis Back: no CVA tenderness Skin General skin exam: no rashes or lesions noted Neuro General: patient oriented x3 Extrem General: Yes normal to inspection Psych Appearance: grossly normal and well kempt Mental Status: mental status grossly normal Speech and movement: Normal speech and movement present and Clear speech present Affect: normal affect Attitude: cooperative Thought process: Normal thought process present Thought content: Normal thought content present Insight: Fair insight present (Psych) Judgement: Fair judgement present (Psych) Results AMB Urinalysis, Automated UA Leukoctes 0 Nahun/uL Last Edit by Stef Whittaker CCM on 06/01/24 11:20 UA Nitrite Negative Last Edit by Stef Whittaker CCM on 06/01/24 11:20 UA Urobilinogen 0.2 mg/dL Last Edit by Stef Whittaker CCM on 06/01/24 11:2 0 UA Protein 0 mg/dL Last Edit by Stef Whittaker CCM on 06/01/24 11:20 UA pH 6.0 Last Edit by Stef Whittaker CCM on 06/01/24 11:20 UA Blood 80 Tez/uL Last Edit by Stef Whittaker CCM on 06/01/24 11:20 UA Specific [place] 1.010 Last Edit by Stef Whittaker CCM on 06/01/24 11: 20 UA Ketone Negative Last Edit by Stef Whittaker CCM on 06/01/24 11:20 UA Bilirubin 0 mg/dL Last Edit by Stef Whittaker CCM on 06/01/24 11:20 UA Glucose 0 mg/dL Last Edit by Stef Whittaker CCM on 06/01/24 11:20 Results Reviewed Results Reviewed: Laboratory Last Values Urine pH (Auto) 6.0 06/01/24 11:19 Specific [place] (Auto) 1.010 06/01/24 11:19 Urine Protein (Auto) 0 mg/dL 06/01/24 11:19 Glucose (UA)(Auto) 0 mg/dL 06/01/24 11:19 Urine Ketones (Auto) Negative 06/01/24 11:19 Urine Blood (Auto) 80 Tez/uL 06/01/24 11:19 Urine Nitrite (Auto) Negative 06/01/24 11:19 Urine Bilirubin (Auto) 0 mg/dL 06/01/24 11:19 Urine Urobilinogen (Auto) 0.2 mg/dL 06/01/24 11:19 Leukocyte Esterase (Auto) 0 Nahun/uL 06/01/24 11:19 Date of Service: 05/26/24 Procedure(s): XR KUB Findings: No pneumoperitoneum or pneumatosis. Normal bowel gas pattern 2 left pelvic calcifications one measuring 1.1 cm in length in the other 6 mm in length could represent distal left ureteral calculi. No acute fractures. IMPRESSION: 2 left pelvic calcifications one measuring 1.1 cm in length in the other 6 mm in length could represent distal left ureteral calculi. Consider correlating with CT as clinically necessary. Assessment & Plan Assessment & Plan (1) Microscopic hematuria: Code(s): R31.29 - Other microscopic hematuria Category: Medical (2) Renal calculi: Comment: June 2018 lithotripsy right ureteral stent July 2018Dr. Galan Code(s): N20.0 - Calculus of kidney Category: Medical (3) Abnormal cytology: Code(s): R89.6 - Abnormal cytological findings in specimens from other organs, systems and tissues Category: Medical Plan In office urinalysis results reviewed the patient today; as noted above; will send for urine cytology Recent KUB results reviewed with the patient today; as noted above. We discussed at length further intervention to include CT urogram for further assessment evaluation and or surveillance monitoring and risks and benefits of these interventions. She currently denies any bothersome urinary issues or concerns. She reports be happy with current voiding parameters. Will obtain CT urogram for further assessment evaluation. BUN and creatinine ordered for imaging. Follow-up in 1-3 months with imaging and labs; or sooner with any issues, concerns, and or questions. Orders: Orders Urine Cytology Today R31.29 - Other microscopic hematuria CT urogram Today N20.0 - Calculus of kidney, R31.29 - Other microscopic hematuria Blood Urea Nitrogen Today N20.0 - Calculus of kidney, R31.29 - Other microscopic hematuria AMB Urinalysis Automated Today Z13.9 - Encounter for screening, unspecified Creatinine Today N20.0 - Calculus of kidney, R31.29 - Other microscopic hematuria Patient Instructions: The patient had an opportunity to ask questions regarding the treatment plan. All questions were answered. Physical exam, labs, and imaging were discussed and reviewed in detail. As well as risks, benefits, and discussion of treatment choices. No major barriers to understanding were identified. The patient expressed understanding and agreement with the above treatment plan. The patient was made aware they should contact our office by phone for worsening of their current condition, the appearance of new symptoms, or with any questions or concerns. Compliance is encouraged with any medications and follow up testing that is ordered. It is a privilege to be allowed the opportunity to participate in? your urological care.? Again, if you have any questions or concerns If you have any questions or concerns please do not hesitate to contact me. The office is [phone]. This note is constructed using voice recognition software. While every effort has been made to ensure accuracy histology tech errors may have been included. Yours sincerely, GABRIELA Carrero Coding Level of Care Code Est Pt Level 3 (63999) Complex EM visit Add On G2211 Diagnoses Microscopic hematuria R31.29 Renal calculi N20.0 Abnormal cytology R89.6
--- OUTSIDE RECORDS SUMMARY | 2024-06-01 12:09 | XMS_ITS | Encounter Summary ---
Author Organization [facility] Address [address] [place] [address] 7t [place] [address] Care Team Providers Care Carry Out Clerk Name Role Phone Unavailable Primary Care [...]
--- OUTSIDE RECORDS SUMMARY | 2024-06-01 12:09 | XMS_ITS | Encounter Summary ---
Author Organization [email or web address] [facility] Address [address] [facility] 7t [place] [address] Care Team Providers Care Electrical Equipment Assembler Name Role Phone Unavailable Primary Care Provider Unavailabl e Encounter Details Date Type Department Care Team (Late st Contact Info) Description 04/18/2022 Abstract [facility] ADULT DENTAL [address] [place], [place] [phone] Cesar Umaña DDS [address] [place], [place] [phone] Social History Tobacco Use Types Packs/Day Years [...]
--- OUTSIDE RECORDS SUMMARY | 2024-06-01 12:09 | XMS_ITS | Clinical Summary ---
Author Organization [email or web address] [facility] Address [address] [place] [address] 7t [place] [address] Care Team Providers Care Information Services Manager Name Role Phone Unavailable Primary Care [...] recession Dental calculus Gingival bleeding Fractured dental tenriism with loss of material from Last 3 Months or Most Recently Relevant to Health Maintenance [facility] STAND ADULT D[facility]AL-[facility] MEDICAID STAND ADULT
--- OUTSIDE RECORDS SUMMARY | 2024-06-01 12:09 | XMS_ITS | Encounter Summary ---
Author Organization [facility] Address [address] [place] [address] 7t [place] [address] Care Team Providers Care Electronic Scale Subassembler Name Role Phone Unavailable Primary Care Provider [...]
--- OUTSIDE RECORDS SUMMARY | 2024-06-01 12:09 | XMS_ITS | Encounter Summary ---
Author Organization [facility] Address [address] [place] [address] 7t [place] [address] Care Team Providers Care Housing Grant Analyst Name Role Phone Unavailable Primary Care Provider [...]
== END 2024-06-01 11:05 | disposition home or self-care (01) ==
LOC: HO.HUSH 10:24
PROVIDERS: PCP Internal Medicine; Visit Provider Nurse Practitioner Family
DX: R31.29 Other microscopic hematuria (principal); N20.0 Calculus of kidney; R89.6 Abnormal cytological findings in specimens from other organs, systems and tissues; Z13.9 Encounter for screening, unspecified
CPT/HCPCS: 99213; G2211

== ENCOUNTER 2024-07-05 13:15 | Outpatient (AMB) | payer MEDICARE, MEDICAID, SELFPAY ==
--- OUTSIDE RECORDS SUMMARY | 2024-07-05 14:21 | XMS_ITS | Encounter Summary ---
Author Organization [employer] Address [address] [facility] 7t [place] [address] Care Team Providers Care Platform Engineer Name Role Phone Unavailable Primary Care Provider Unavailabl e Encounter Details Date Type Department Care Team (Late st Contact Info) Description 04/18/2022 Abstract [facility] ADULT DENTAL [address] [place], [place] [phone] Cesar Umaña DDS [address] [place], [place] [phone] Social History Tobacco Use Types Packs/Day Years [...]
--- OUTSIDE RECORDS SUMMARY | 2024-07-05 14:21 | XMS_ITS | Encounter Summary ---
Author Organization [employer] [facility] Address [address] [facility] 7t [place] [address] Care Team Providers Care Amortization Schedule Clerk Name Role Phone Unavailable Primary Care Provider Unavailabl e Encounter Details Date Type Department Care Team (Latest Contact Info) Description 05/23/2021 Abstract [facility] Dental, Provider, DDS Social History Tobacco [...]
--- OUTSIDE RECORDS SUMMARY | 2024-07-05 14:21 | XMS_ITS | Clinical Summary ---
Author Organization [employer] [facility] Address [address] [place] [address] [address] [place] [address] Care Team Providers Care Machines Technician Name Role Phone Unavailable Primary Care Provider [...] Prophylaxis 08/08/2023 02/05/2023, 05/09/2022 COVID-19 Vaccine (4 - 2023-2 5 season) 2023 02/26/2021, 07/19/2020, 06/21/2020 [...] patient's age to complete this topic Meningococcal B Vaccine Aged Out No l onger eligible based on patient's age to complete [...] recession Dental calculus Gingival bleeding Fractured dental nondenominational with loss of material from Last 3 Months or Most Recently Relevant to Health Maintenance Insurance D[facility]AL-[facility] MEDICAID STAND ADULT DENTAL-[facility] MEDICAID STAND ADULT
--- OUTSIDE RECORDS SUMMARY | 2024-07-05 14:21 | XMS_ITS | Encounter Summary ---
Author Organization [employer] [facility] Address [address] [facility] 7t [place] [address] Care Team Providers Care Supervisor Edging Name Role Phone Unavailable Primary Care Provider [...]
--- OUTSIDE RECORDS SUMMARY | 2024-07-05 14:21 | XMS_ITS | Encounter Summary ---
Author Organization [employer] [facility] Address [address] [facility] 7t [place] [address] Care Team Providers Care Blog Writer Name Role Phone Unavailable Primary Care Provider Unavailabl e Encounter Details Date Type Department Care Team (Latest Contact Info) Description 02/23/2018 Abstract [facility] Dental, Provider, DDS Social [...]
[2024-07-05 14:23] VITALS: BP 140/80; PULSE 78; O2SAT 99; BMI 27.6
--- NOTE | 2024-07-05 14:23 | MHC.OFFWIV ---
Intake Vital Signs 07/05/24 14:23 Height 5 ft 1 in Weight 146 lb BMI 27.6 BP 140/80 H Blood Pressure Location Rt brachial Position Sitting Pulse 78 Pulse Source Pulse Oximeter Pulse Oximetry (%) 99 Oxygen Delivery Method Room Air Intake Visit Reasons: EP-rt heel pain Intake Note: Patient here for right heel pain that has been present for a couple of days. Patient Tobacco Use Status: Never used Tobacco Allergies Penicillins [PENICILLINS] Allergy (Unknown, Verified 07/05/24 14:29) RASH pseudoephedrine [Sudafed] Allergy (Unknown, Verified 07/05/24 14:29) Unknown Sulfa (Sulfonamide Antibiotics) [SULFA (SULFONAMIDE ANTIBIOTICS)] Allergy (Unknown, Verified 07/05/24 14:29) RASH Do you need a note to return to daycare/school/sports/work: No HPI HPI Comments History of Present Illness Details This is a 69-year-old female with a past medical history of hypertension presenting for evaluation of right heel pain that she has had for approximately 1 week. Patient denies any injury or trauma preceding the onset of her symptoms. Patient states that the pain is worse when she first gets up in the morning and will again worsen if she is walking for a long period of time. Patient has not been taking any medication for treatment of her discomfort. [facility] Medical History Cellulitis Renal calculi Vaginal atrophy Vitamin D deficiency Cirrhosis High cholesterol Surgical History History of urologic surgery History of biopsy History of lithotripsy History of tubal ligation History of foot surgery Family History Father No problems noted. Mother Depression Mental health disorder Social History Housing: Apartment Alcohol intake: never Patient Tobacco Use Status: Never used Tobacco e-Cigarette/Vaping Use: Never Used Second Hand Smoke Exposure: No service: No Current occupational status: retired Cognitive needs: No Hearing needs: No Vision needs: Yes Female Reproductive History Menstrual Age of Menarche: 13 Review of Systems Const All systems reviewed & are unremarkable except as noted in HPI and below Eyes Reports no additional complaints ENT Reports no additional complaints Card Reports no additional complaints Resp Reports no additional complaints GI Reports no additional complaints Reports no additional complaints Musc Details: right foot pain, plantar surface Skin/Breast Reports system reviewed and no additional complaints, except as documented Neuro Reports no additional complaints Psych Reports no additional complaints Endo Reports no additional complaints [place]/Lymph Reports no additional complaints Aller/Immun Reports no additional complaints Physical Exam Vital Signs: Last Vital Signs Pulse 78 07/05/24 14:23 BP 140/80 H 07/05/24 14:23 Pulse Ox 99 07/05/24 14:23 Oxygen Delivery Method Room Air 07/05/24 14:23 BMI result Body Mass Index 27.6 Const General: cooperative, healthy appearing, comfortable, no acute distress, well developed, alert, awake and Physically active Nutritional Appearance: average body habitus Orientation/consciousness: patient oriented x3 Limitations: no limitations Skin General skin exam: no rashes or lesions noted Neuro General: patient oriented x3 Extrem Right lower extremity: normal to inspection, full ROM and foot (pain to palpation plantar surface of calcaneus; no pain of metatarsals) Details: motor-sensory exam Details: light-touch normal Psych Appearance: grossly normal Mental Status: mental status grossly normal Insight: Good insight present (Psych) Judgement: Good judgement present (Psych) Assessment & Plan Assessment & Plan (1) Plantar fasciitis of right foot: Comment: Patient's history coupled with her examination is consistent with a right plantar fasciitis. Code(s): M72.2 - Plantar fascial fibromatosis Plan: Patient is instructed to wear a lace-up shoe and avoid walking barefoot, ice and stretch daily, Naprosyn q.12 hours. Medications: New naproxen (Naprosyn) 500 mg PO BID 20 tabs 0RF Coding Level of Care Code Est Pt Level 3 (68290) Diagnoses Plantar fasciitis of right foot M72.2 Time Spent (min) 20
== END 2024-07-05 15:21 | disposition home or self-care (01) ==
PROVIDERS: PCP Internal Medicine; Visit Provider Physician Assistant
DX: M72.2 Plantar fascial fibromatosis (principal)

== ENCOUNTER → 2024-07-05 13:15 | Outpatient (BNVA) | payer MEDICARE, MEDICAID, SELFPAY | PROVIDERS: PCP Internal Medicine; Visit Provider Physician Assistant | DX: M72.2 Plantar fascial fibromatosis (principal) | CPT/HCPCS: 99212 ==

== ENCOUNTER 2024-08-05 06:38 | Outpatient (REF) | payer MEDICARE, MEDICAID, SELFPAY ==
[2024-08-05 07:42] LABS: Blood Urea Nitrogen 19 mg/dL (9-16); Estimated Glomerular Filt Rate > 60
== END 2024-08-05 06:39 | disposition home or self-care (01) ==
LOC: HO.LAB 06:38
PROVIDERS: PCP Internal Medicine; Visit Provider Nurse Practitioner Family
DX: R31.29 Other microscopic hematuria (principal); N20.0 Calculus of kidney
CPT/HCPCS: 36415; 82565; 84520

== ENCOUNTER 2024-08-16 09:09 | Outpatient (REF) | payer MEDICARE, MEDICAID, SELFPAY ==
--- NOTE | ~2024-08-16 | CT_ITS ---
CLINICAL HISTORY: R31.29 - Other microscopic hematuria CT abdomen and pelvis with and with the IV contrast. COMPARISON: CT abdomen and pelvis dated 02/11/23 at 10:10 EST FINDINGS: Minimal linear atelectasis versus scarring along the lung bases. Small hiatal hernia. No focal hepatic lesion. Normal gallbladder. Normal spleen. Normal pancreas. Normal adrenal glands. Multiple nonobstructing right renal calculi measuring up to 6 mm. Mild right hydronephrosis. No right hydroureter. 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 No ureteral calculus identified. Several phleboliths present along the course of the ureter. On delayed contrast opacifies the right renal collecting system and enters the urinary bladder without evidence of obstruction. Right renal cystic lesions at the inferior pole measuring 1.1 cm and 0.9 cm. No left renal calculus. No left hydronephrosis or hydroureter. Duplicated renal collecting system on the left to the level of the pelvic brim. At the left UVJ there are adjacent 0.9 and 0.6 cm ureteral calculi which appear along the course of the diminutive left ureter and are likely obstructing. Left renal cystic lesion the superior pole measuring 0.7 cm. Normal appendix. Mild colonic stool burden. No bowel obstruction. No mesenteric or retroperitoneal lymphadenopathy. Normal abdominal aorta. Normal appearance of the urinary bladder. Heterogeneous lobular appearance of the uterus likely representing a fibroid uterus. Dystrophic calcification present along the left aspect of the uterus likely representing a calcified fibroid. No adnexal mass. Small fat containing umbilical hernia. Moderate lower lumbar spondylosis. No acute fracture. IMPRESSION: 1. Left UVJ 0.9 and 0.6 cm calculi appear to be along the course of the diminutive distal left ureter, similar in position to prior imaging in possibly representing nonobstructing ureteral calculi. No associated hydronephrosis or hydroureter. 2. Mild right hydronephrosis. No right hydroureter or right ureteral calculus. 3. Multiple nonobstructing right renal calculi measuring up to 0.6 cm. 4. Duplicated renal collecting systems bilaterally to the level of the pelvic brim. 5. Bilateral renal simple cysts measuring up to 1.1 cm on the right and 0.7 cm on the left. 6. Fibroid uterus. This document has been electronically signed by: Tye Tafoya MD on 08/17/2024 16:39:55
--- OUTSIDE RECORDS SUMMARY | 2024-08-16 09:41 | XMS_ITS | Clinical Summary ---
Author Organization [employer] [facility] Address [address] [place] [address] 7[address] [place] [address] Care Team Providers Care Supplier Quality Manager Name Role Phone Unavailable Primary Care [...] 2023-2 5 season) 2023 02/26/2021, 07/19/2020, 06/21/2020 Dental X-Ray: Bitewings 02/07/2024 02/06/20 23, 12/16/2021 Tobacco Screening 04/15/2024 04/15/2023 Influenza Vaccine (Season Ended) 2024 DTaP/Tdap/Td Vaccines (2 - T d or [...] recession Dental calculus Gingival bleeding Fractured dental anabaptist with loss of material from Last 3 Months or Most Recently Relevant to Health Maintenance Insurance D[facility]AL-[facility] MEDICAID STAND ADULT DENTAL-[facility] MEDICAID STAND ADULT
[2024-08-16] MEDS: iohexoL 350 MG/ML 100 ML INFUS..BTL 85 ML IV (09:55)
== END 2024-08-16 09:10 | disposition home or self-care (01) ==
LOC: HO.CT 09:09
PROVIDERS: PCP Internal Medicine; Visit Provider Nurse Practitioner Family
DX: R31.29 Other microscopic hematuria (principal); N20.0 Calculus of kidney
CPT/HCPCS: 74178; Q9967

== ENCOUNTER → 2024-08-16 09:11 | Outpatient (BNV) | payer MEDICARE, MEDICAID, SELFPAY | PROVIDERS: PCP Internal Medicine; Visit Provider Radiology Diagnostic Radiology | DX: N20.2 Calculus of kidney with calculus of ureter (principal) | CPT/HCPCS: 74178 ==

== ENCOUNTER 2024-08-30 09:51 | Outpatient (AMB) | payer MEDICARE, MEDICAID, SELFPAY ==
--- NOTE | 2024-08-30 10:17 | A.OFFVIS_ITS ---
Intake Visit Reasons: 3m/ Bun & Creat/ CT(set) Intake Note: Patient presents today for follow up on: Kidney Stone, Abn Cytology, Microscopic Hematuria, and CT Scan Results Imaging Completed: 08/16/24 Urology Medication:NONE Antibiotic Allergy:PENICILLINS,SULFA Blood Thinner:NONE Bilingual Case Manager Required: No Accompanied by: Self / Same As Patient Allergies Penicillins (PENICILLINS) Allergy (Unknown, Verified 08/30/24 15:54) RASH pseudoephedrine (Sudafed) Allergy (Unknown, Verified 08/30/24 15:54) Unknown Sulfa (Sulfonamide Antibiotics) (SULFA (SULFONAMIDE ANTIBIOTICS)) Allergy (Unknown, Verified 08/30/24 15:54) RASH Medication List - Last Reconciled 08/30/24 by EDER Carrero [Blood pressure monitor As directed] HPI Comments Details: Karen is a very pleasant 69-year-old female patient of Dr. Amin. She has a past medical history of cellulitis, nephrolithiasis, vaginal atrophy, vitamin-D deficiency, cirrhosis, and hyperlipidemia. She presents to the office today for follow-up of her microscopic hematuria and nephrolithiasis. In discussion with the patient today she reports to be doing and feeling well. Recent CT KUB results were reviewed with the patient today 09/09 left UVJ 0.9 and 0.6cm calculi appearing to be along the course of the distal left ureter. Mild right hydronephrosis no right ureter or right ureteral calculus noted. Multiple nonobstructing right renal calculi measuring up to 6 mm. Duplicated renal collecting system bilaterally to the level of the pelvic rim. Bilateral renal simple cysts measuring up to 1.1 cm on the right and 7 mm on the left. She does discuss her longstanding history of nephrolithiasis and previous surgical intervention for nephrolithiasis. We did discussed further workup to include left-sided ureteroscopy. We discussed risks and benefits of this intervention. Patient also with a longstanding history of microscopic hematuria previous urine cytologies: 3/24 Atypical urothelial cells. 06/10 Negative for high-grade urothelial carcinoma In office urinalysis results reviewed with the patient today. When asked she denies urinary urgency, urinary frequency, incontinence, nocturia, hematuria, dysuria, foul smelling urine, changes to urinary stream, flank pain, fever, and or chills. She is happy with her current voiding parameters. We discussed potential causes of microscopic hematuria. She otherwise offers no other issues or concerns at this time. [facility] Medical History Cellulitis Renal calculi Vaginal atrophy Vitamin D deficiency Cirrhosis High cholesterol Surgical History History of urologic surgery History of biopsy History of lithotripsy History of tubal ligation History of foot surgery Family History Father No problems noted. Mother Depression Mental health disorder Social History Housing: Apartment Alcohol intake: never Patient Tobacco Use Status: Never used Tobacco e-Cigarette/Vaping Use: Never Used Second Hand Smoke Exposure: No service: No Current occupational status: retired Cognitive needs: No Hearing needs: No Vision needs: Yes Female Reproductive History Menstrual Age of Menarche: 13 Review of Systems Const Reports no additional complaints Eyes Reports no additional complaints ENT Reports no additional complaints Card Reports as per HPI Resp Reports no additional complaints GI Reports no additional complaints Reports as per HPI Musc Reports no additional complaints Neuro Reports no additional complaints Psych Reports no additional complaints Endo Reports no additional complaints [place]/Lymph Reports no additional complaints Aller/Immun Reports no additional complaints Physical Exam Const General: cooperative, healthy appearing, comfortable, no acute distress, well developed, alert and awake Orientation/consciousness: patient oriented x3 Limitations: no limitations HEENT Head: Yes normal to inspection, Yes normocephalic and Yes atraumatic Ears: hearing grossly normal bilaterally Eyes General: appearance normal, both eyes and all related structures Neck Neck: Yes normal visual inspection and Yes trachea midline Chest Chest palpation & inspection: normal inspection of the chest Resp Effort & Inspection: normal respiratory effort and able to speak in complete sentences Cardio Rate: regular rate GI Inspection: Yes normal to inspection General: Yes no CVA tenderness Back/Spine/Pelvis Back: no CVA tenderness Skin General skin exam: no rashes or lesions noted Neuro General: patient oriented x3 Extrem General: Yes normal to inspection Psych Appearance: grossly normal and well kempt Mental Status: mental status grossly normal Speech and movement: Normal speech and movement present and Clear speech present Affect: normal affect Attitude: cooperative Thought process: Normal thought process present Thought content: Normal thought content present Insight: Fair insight present (Psych) Judgement: Fair judgement present (Psych) Results AMB Urinalysis, Automated UA Leukoctes 15 Nahun/uL Last Edit by [address] [facility] on 08/30/24 10:35 UA Nitrite [facility] on 08/30/24 10:35 UA Urobilinogen 0.2 mg/dL Last Edit [facility] on 08/30/24 10:3 5 UA Protein 0 mg/dL Last Edit by [facility] on 08/30/24 10:35 UA pH 6.0 Last Edit by [facility], [facility] on 08/30/24 10:35 UA Blood 25 Tez/uL Last Edit by [facility] on 08/30/24 10:35 UA Specific [place] 1.[address] [address] [facility] on 08/30/24 10: 35 UA Ketone Last Edit [facility] on 08/30/24 10:35 UA Bilirubin 0 mg/dL Last Edit by [facility] on 08/30/24 10:35 UA Glucose 0 mg/dL Last Edit by [facility] on 08/30/24 10:35 Results Reviewed Results Reviewed: Laboratory Last Values Urine pH (Auto) 6.0 08/30/24 10:24 Specific Salley (Auto) 1.005 08/30/24 10:24 Urine Protein (Auto) 0 mg/dL 08/30/24 10:24 Glucose (UA)(Auto) 0 mg/dL 08/30/24 10:24 Urine Blood (Auto) 25 Tez/uL 08/30/24 10:24 Urine Bilirubin (Auto) 0 mg/dL 08/30/24 10:24 Urine Urobilinogen (Auto) 0.2 mg/dL 08/30/24 10:24 Leukocyte Esterase (Auto) 15 Nahun/uL 08/30/24 10:24 Date of Service: 08/16/24 Procedure(s): CT urogram FINDINGS: Minimal linear atelectasis versus scarring along the lung bases. Small hiatal hernia. No focal hepatic lesion. Normal gallbladder. Normal spleen. Normal pancreas. Normal adrenal glands. Multiple nonobstructing right renal calculi measuring up to 6 mm. Mild right hydronephrosis. No right hydroureter. 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 No ureteral calculus identified. Several phleboliths present along the course of the ureter. On delayed contrast opacifies the right renal collecting system and enters the urinary bladder without evidence of obstruction. Right renal cystic lesions at the inferior pole measuring 1.1 cm and 0.9 cm. No left renal calculus. No left hydronephrosis or hydroureter. Duplicated renal collecting system on the left to the level of the pelvic brim. At the left UVJ there are adjacent 0.9 and 0.6 cm ureteral calculi which appear along the course of the diminutive left ureter and are likely obstructing. Left renal cystic lesion the superior pole measuring 0.7 cm. Normal appendix. Mild colonic stool burden. No bowel obstruction. No mesenteric or retroperitoneal lymphadenopathy. Normal abdominal aorta. Normal appearance of the urinary bladder. Heterogeneous lobular appearance of the uterus likely representing a fibroid uterus. Dystrophic calcification present along the left aspect of the uterus likely representing a calcified fibroid. No adnexal mass. Small fat containing umbilical hernia. Moderate lower lumbar spondylosis. No acute fracture. IMPRESSION: 1. Left UVJ 0.9 and 0.6 cm calculi appear to be along the course of the diminutive distal left ureter, similar in position to prior imaging in possibly representing nonobstructing ureteral calculi. No associated hydronephrosis or hydroureter. 2. Mild right hydronephrosis. No right hydroureter or right ureteral calculus. 3. Multiple nonobstructing right renal calculi measuring up to 0.6 cm. 4. Duplicated renal collecting systems bilaterally to the level of the pelvic brim. 5. Bilateral renal simple cysts measuring up to 1.1 cm on the right and 0.7 cm on the left. 6. Fibroid uterus. Assessment & Plan Assessment & Plan (1) Renal calculi: Comment: June 2018 lithotripsy right ureteral stent July 2018 [place] Code(s): N20.0 - Calculus of kidney Category: Medical (2) Hydronephrosis: Code(s): N13.30 - Unspecified hydronephrosis Category: Medical Plan: Ureteroscopy We discussed the nature of the decision and reasonable alternatives for performing ureteroscopy. Options such as medical therapy were discussed. Interventions include chemical dissolution, ESWL, ureteroscopy with laser lithotripsy and stent placement, PCNL. The relative uncertainties and benefits related to each alternate procedure were adequately discussed. General surgical risks including, but not limited to - pain, bleeding, infection, myocardial infarction, pulmonary embolus, deep vein thrombosis and cerebrovascular accident which may result in further hospitalization were discussed.? Full disclosure of the procedure as well as all major risks, benefits and complications were discussed including but not limited to damage to the urethra, bladder and kidney infection, damage to the ureter, stent migration or malposition, scarring to the renal pelvis, remnant stone fragments, subsequent stone passage with need for secondary procedures. The overall secondary procedure rate is approximately 10-15%.? The overall clearance rate is approximately 90-95%. Success of the procedure in the short-term does not necessarily guarantee that long-term success will be maintained. Suitable follow up will need to be maintained. The patient showed understanding of discussion and wishes to proceed with - cystoscopy, retrograde, ureteroscopy, possible lithotripsy/stone basketing and stent on the left side Plan In office urinalysis results reviewed with the patient today; as noted above; will send for urine cytology. Recent CT results reviewed with the patient today; as noted above. We did discussed further intervention to include ureteroscopy All questions were answered. We did discussed the importance of adequate hydration relation to nephrolithiasis as well as overall health and well-being. We did discussed post procedure further metabolic workup to include Litholink and labs All questions were answered Will schedule for cystoscopy, retrograde, ureteroscopy, possible lithotripsy/stone basketing and stent on the left side. Orders: Orders AMB Urinalysis Automated Today Z13.9 - Encounter for screening, unspecified Urine Cytology Today R89.6 - Abnormal cytological findings in specimens from other organs, systems and tissues Patient Instructions: The patient had an opportunity to ask questions regarding the treatment plan. All questions were answered. Physical exam, labs, and imaging were discussed and reviewed in detail. As well as risks, benefits, and discussion of treatment choices. No major barriers to understanding were identified. The patient expressed understanding and agreement with the above treatment plan. The patient was made aware they should contact our office by phone for worsening of their current condition, the appearance of new symptoms, or with any questions or concerns. Compliance is encouraged with any medications and follow up testing that is ordered. It is a privilege to be allowed the opportunity to participate in? your urological care.? Again, if you have any questions or concerns If you have any questions or concerns please do not hesitate to contact me. The office is [phone]. This note is constructed using voice recognition software. While every effort has been made to ensure accuracy template maker errors may have been included. Yours sincerely, AGBRIELA Carrero Coding Level of Care Code Est Pt Level 4 (26194) Complex EM visit Add On G2211 Diagnoses Renal calculi N20.0 Hydronephrosis N13.30
--- OUTSIDE RECORDS SUMMARY | 2024-08-30 10:35 | XMS_ITS | Clinical Summary ---
Author Organization [employer] [facility] Address [address] [place] [address] [address] [place] [address] Care Team Providers Care City Bailiff Name Role Phone Unavailable Primary Care Provider [...] 12/16/2021 Tobacco Screening 04/15/2024 04/15/2023 Influenza Vaccine (#1) 2024 DTaP/Tdap/Td Vaccines (2 - T d [...] recession Dental calculus Gingival bleeding Fractured dental uatsdin with loss of material from Last 3 Months or Most Recently Relevant to Health Maintenance Insurance [facility] MEDICAID STAND ADULT DENT[facility] [place] STAND ADULT
== END 2024-08-30 11:18 | disposition home or self-care (01) ==
LOC: HO.HUSH 09:51
PROVIDERS: PCP Internal Medicine; Visit Provider Nurse Practitioner Family
DX: N20.0 Calculus of kidney (principal); N13.30 Unspecified hydronephrosis; Z13.9 Encounter for screening, unspecified
CPT/HCPCS: 99214; G2211

== ENCOUNTER 2024-08-30 09:51 | Outpatient (REF) | payer MEDICARE, MEDICAID, SELFPAY | END 2024-08-30 09:52 | disposition home or self-care (01) | LOC: HO.LNP 09:51 | PROVIDERS: PCP Internal Medicine; Visit Provider Nurse Practitioner Family | DX: N13.2 Hydronephrosis with renal and ureteral calculous obstruction (principal); R31.29 Other microscopic hematuria; R89.6 Abnormal cytological findings in specimens from other organs, systems and tissues; Z13.9 Encounter for screening, unspecified | CPT/HCPCS: 81003; 88112; 99212 ==

== ENCOUNTER 2024-09-27 08:34 | Outpatient (AMB) | payer MEDICARE, MEDICAID, SELFPAY ==
--- NOTE | 2024-09-27 08:38 | A.OFFPC_ITS ---
Vital Signs 09/27/24 08:39 Height 5 ft 1 in Weight 143 lb BMI 27.0 BP 130/80 Blood Pressure Location Lt brachial Position Sitting Pulse 76 Pulse Source Pulse Oximeter Pulse Oximetry (%) 98 Oxygen Delivery Method Room Air Intake Visit Reasons: PE Allergies Penicillins (PENICILLINS) Allergy (Unknown, Verified 09/27/24 08:39) RASH pseudoephedrine (Sudafed) Allergy (Unknown, Verified 09/27/24 08:39) Unknown Sulfa (Sulfonamide Antibiotics) (SULFA (SULFONAMIDE ANTIBIOTICS)) Allergy (Unknown, Verified 09/27/24 08:39) RASH Medication List - Last Reconciled 09/27/24 by Topher Amin MD [Blood pressure monitor As directed] Tobacco use date assessed: 09/27/24 Fall risk assessment: No Falls in past year Last assessed Fall Risk: 09/27/24 Dental Screening Dental Screen Date: 04/05/24 HPI PE HPI Details History of Present Illness The patient is a 69-year-old female presenting for a physical exam annual Osteopenia: - Diagnosed previously; currently manage d with weight-bearing exercises and monitoring. - Discussed bone health and vitamin D's role in maintaining bone strength. Vitamin D deficiency: - Not taking any supplements; advised to take [id number] Vitamin D3. - Low levels could contribute to musculo skeletal pain and bone health issues. Plantar Fasciitis: - Reports pain in plantar region affecti ng ambulation. right side - Onset and duration not explicitly prov ided but currently troublesome. - Previously prescribed medication and e xercises with minimal relief. - X-ray planned to evaluate for a heel s pur. Prehypertension: - Blood pressure reading today was 130/8 0 mmHg. - Advised monitoring; previously recorde d at 115/.. - Awareness raised regarding the potenti al for progression. Historical kidney stone: - Right-sided kidney stone previously di agnosed. - Discussed management and intervention by urologist. Historical left mid pole renal stone and left renal pelvic ectasia: - Confirmed from imaging in October of the previous year. Breast cyst, left side: - Palpable lump detected; believed to be a cyst. - No prior history of breast cysts. - Planned for further diagnostic imaging for clarification. Menopausal symptoms: - Reports ongoing hot flashes. - No current treatment specified in disc ussion. Medical History: - Osteopenia - Vitamin D deficiency - Prehypertension - Historical kidney stone, right side - Elevated blood glucose (historical) Social History: - Engages in regular consultations for klaudia smith. - Practices weight-bearing exercises. - Consumes lemon tea daily for renal hea lth. Health Maintenance - Last CBC was stable (November previous year). - Electrolytes checked in May; results unremarkable. - Previous A1c was 5.4 (non-diabetic ran ge). - Kidney functions normal. - Liver enzymes within normal limits. - Cholesterol level was 103; noted impro vement. - Last mammogram missed; recommended to schedule. - Urologic evaluations for bladder; biop sy negative. - Bone density assessment due to osteope kiara risk. - Vaccinations discussed: tetanus (due n ext year), pneumonia (administration offered today). - Emphasized importance of mammogram and breast ultrasound for cyst evaluation. Patient Instructions - Obtain and take Vitamin D3 supplements as directed by pharmacist. - Continue blood pressure monitoring. - Schedule mammogram and breast ultrasou nd for lump evaluation. - Follow up with a foot doctor for plant ar fasciitis and consider X-ray for heel spur. - Maintain bone health through exercises and possible bone density screening. - get pneumonia vaccine from pharm, and tetanus. f/u 6 M Review of Systems - General: No fever no chills - Neurological: No headaches no dizzin ess - Ear nose throat: No sore throat no hearing difficulty no ear pain - Cardiovascular: No syncope, no chest pain, no palpitations - Gastrointestinal: No nausea vomiting or diarrhea - Endocrine: No polyuria polydipsia no heat intolerance - Genitourinary: No dysuria - Skin: No new complaints Physical Exam General: Cooperative, healthy appearing, comfortable, no acute distress Orientation: Patient oriented x3 Head: Normal to inspection Ears: Within normal limit visually Nose: Normal external nose present Face and sinus: Normal facial exam Eyes: Appearance normal, extraocular movement intact pupils reactive Neck: Normal visual inspection and supple Respiratory: Normal respiratory effort and able to speak in complete sentences. Clear to auscultation, no stridor Cardiovascular: S1 and S2 RRR GI: Normal to inspection. Soft to palpation and nontender Skin: Turgor normal, no acute findings. Multiple moles present, advised to monitor Neuro: Patient oriented x3, motor sensory intact, balance intact, tandem pass Extremities: Normal to inspection.ROM full , pain over right heal and planter aspect of foot with palpation [facility] Medical History Cellulitis Renal calculi Vaginal atrophy Vitamin D deficiency Cirrhosis High cholesterol Surgical History History of urologic surgery History of biopsy History of lithotripsy History of tubal ligation History of foot surgery Family History Father No problems noted. Mother Depression Mental health disorder Social History Housing: Apartment Alcohol intake: never Patient Tobacco Use Status: Never used Tobacco e-Cigarette/Vaping Use: Never Used Second Hand Smoke Exposure: No service: No Current occupational status: retired Cognitive needs: No Hearing needs: No Vision needs: Yes Female Reproductive History Menstrual Age of Menarche: 13 Questionnaire Thrive Questionnaire Date Thrive assessed: 04/05/24 HARDY-7 AMB Questionnaire HARDY-7 Date HARDY - 7 assessed: 04/05/24 Source: Developed by Drs. Jn Hampton, Delma Sheehan, Toñito Padilla and colleagues, with an educational saima from [employer]. Physical exam (Primary Care) Vital Signs: Last Vital Signs Pulse 76 09/27/24 08:39 BP 130/80 09/27/24 08:39 Pulse Ox 98 09/27/24 08:39 Oxygen Delivery Method Room Air 09/27/24 08:39 BMI result Body Mass Index 27.0 Tobacco/Smoking Status: Tobacco use Status Tobacco use date assessed 09/27/24 09/27/24 08:42 Patient Tobacco Use Status Never used Tobacco 09/27/24 08:38 Tobacco use type 10/21/23 13:38 e-Cigarette/Vaping Use Never Used 09/27/24 08:38 Thrive Assessment: Date of Thrive Assessment Date Thrive assessed 04/05/24 09/27/24 08:38 Coding Level of Care Code Est Pt Level 4 (01059) Est Pt Prev Care >65y(05451) Diagnoses Encounter for general adult medical examination with abnormal findings Z00.01 Breast lump on left side at 2 o'clock position N63.21 Pain of right heel M79.671 Laterality: right Vitamin D deficiency E55.9 Osteopenia, unspecified location M85.80 Osteopenia location: unspecified Pre-hypertension R03.0 Assessment & Plan Assessment & Plan (1) Encounter for general adult medical examination with abnormal findings: Code(s): Z00.01 - Encounter for general adult medical examination with abnormal findings Category: Medical (2) Breast lump on left side at 2 o'clock position: Code(s): N63.21 - Unspecified lump in the left breast, upper outer quadrant Category: Medical (3) Heel pain: Code(s): M79.673 - Pain in unspecified foot Category: Medical Qualifiers: Laterality: right Qualified Code(s): M79.671 - Pain in right foot (4) Vitamin D deficiency: Code(s): E55.9 - Vitamin D deficiency, unspecified Category: Medical (5) Osteopenia: Comment: August 2019 Code(s): M85.80 - Other specified disorders of bone density and structure, unspecified site Category: Medical Qualifiers: Osteopenia location: unspecified Qualified Code(s): M85.80 - Other specified disorders of bone density and structure, unspecified site (6) Pre-hypertension: Code(s): R03.0 - Elevated blood-pressure reading, without diagnosis of hypertension Category: Medical Plan History of Present Illness The patient is a 69-year-old female presenting for a physical exam annual Osteopenia: - Diagnosed previously; currently managed with weight-bearing exercises and monitoring. - Discussed bone health and vitamin D's role in maintaining bone strength. Vitamin D deficiency: - Not taking any supplements; advised to take [id number] Vitamin D3. - Low levels could contribute to musculoskeletal pain and bone health issues. Plantar Fasciitis: - Reports pain in plantar region affecting ambulation. right side - Onset and duration not explicitly provided but currently troublesome. - Previously prescribed medication and exercises with minimal relief. - X-ray planned to evaluate for a heel spur. Prehypertension: - Blood pressure reading today was 130/80 mmHg. - Advised monitoring; previously recorded at 115/.. - Awareness raised regarding the potential for progression. Historical kidney stone: - Right-sided kidney stone previously diagnosed. - Discussed management and intervention by urologist. Historical left mid pole renal stone and left renal pelvic ectasia: - Confirmed from imaging in October of the previous year. Breast cyst, left side: - Palpable lump detected; believed to be a cyst. - No prior history of breast cysts. - Planned for further diagnostic imaging for clarification. Menopausal symptoms: - Reports ongoing hot flashes. - No current treatment specified in discussion. Medical History: - Osteopenia - Vitamin D deficiency - Prehypertension - Historical kidney stone, right side - Elevated blood glucose (historical) Social History: - Engages in regular consultations for wellness. - Practices weight-bearing exercises. - Consumes lemon tea daily for renal health. Health Maintenance - Last CBC was stable (November previous year). - Electrolytes checked in May; results unremarkable. - Previous A1c was 5.4 (non-diabetic range). - Kidney functions normal. - Liver enzymes within normal limits. - Cholesterol level was 103; noted improvement. - Last mammogram missed; recommended to schedule. - Urologic evaluations for bladder; biopsy negative. - Bone density assessment due to osteopenia risk. - Vaccinations discussed: tetanus (due next year), pneumonia (administration offered today). - Emphasized importance of mammogram and breast ultrasound for cyst evaluation. Patient Instructions - Obtain and take Vitamin D3 supplements as directed by pharmacist. - Continue blood pressure monitoring. - Schedule mammogram and breast ultrasound for lump evaluation. - Follow up with a foot doctor for plantar fasciitis and consider X-ray for heel spur. - Maintain bone health through exercises and possible bone density screening. - get pneumonia vaccine from pharm, and tetanus. f/u 6 M Orders: Orders Comprehensive [place]. Panel Fast Today E55.9 - Vitamin D deficiency, unspecified, M85.80 - Other specified disorders of bone density and structure, unspecified site, R03.0 - Elevated blood-pressure reading, without diagnosis of hypertension, Z00.01 - Encounter for general adult medical examination with abnormal findings XR foot RT 2V Today M79.673 - Pain in unspecified foot Complete Blood Count Auto Diff Today E55.9 - Vitamin D deficiency, unspecified, M85.80 - Other specified disorders of bone density and structure, unspecified site, R03.0 - Elevated blood-pressure reading, without diagnosis of hypertension, Z00.01 - Encounter for general adult medical examination with abnormal findings Lipid Panel Today E55.9 - Vitamin D deficiency, unspecified, M85.80 - Other specified disorders of bone density and structure, unspecified site, R03.0 - Elevated blood-pressure reading, without diagnosis of hypertension, Z00.01 - Encounter for general adult medical examination with abnormal findings TSH reflex Free T4 Today E55.9 - Vitamin D deficiency, unspecified, M85.80 - Other specified disorders of bone density and structure, unspecified site, R03.0 - Elevated blood-pressure reading, without diagnosis of hypertension, Z00.01 - Encounter for general adult medical examination with abnormal findings US breast LT complete Today N63.21 - Unspecified lump in the left breast, upper outer quadrant MM tomosynthesis diagnostic LT Today N63.21 - Unspecified lump in the left breast, upper outer quadrant Referrals Podiatry Referral M79.673 - Pain in unspecified foot
[2024-09-27 08:39] VITALS: BP 130/80; PULSE 76; O2SAT 98; BMI 27.0
== END 2024-09-27 09:12 | disposition home or self-care (01) ==
LOC: HO.HMCC 08:35
PROVIDERS: PCP Internal Medicine; Visit Provider Internal Medicine
DX: Z00.01 Encounter for general adult medical examination with abnormal findings (principal); M79.671 Pain in right foot; N63.21 Unspecified lump in the left breast, upper outer quadrant; E55.9 Vitamin D deficiency, unspecified; M85.80 Other specified disorders of bone density and structure, unspecified site; R03.0 Elevated blood-pressure reading, without diagnosis of hypertension

== ENCOUNTER → 2024-09-27 08:34 | Outpatient (BNVA) | payer MEDICARE, MEDICAID, SELFPAY | PROVIDERS: PCP Internal Medicine; Visit Provider Internal Medicine | DX: Z00.01 Encounter for general adult medical examination with abnormal findings (principal); N63.21 Unspecified lump in the left breast, upper outer quadrant; M79.671 Pain in right foot; E55.9 Vitamin D deficiency, unspecified; M85.80 Other specified disorders of bone density and structure, unspecified site; R03.0 Elevated blood-pressure reading, without diagnosis of hypertension; E78.00 Pure hypercholesterolemia, unspecified | CPT/HCPCS: 99212; 99397 ==

== ENCOUNTER 2024-09-28 08:06 | Outpatient (REF) | payer MEDICARE, MEDICAID, SELFPAY ==
--- NOTE | ~2024-09-28 | XR_ITS ---
EXAMINATION: XR FOOT 1-2 VIEWS RIGHT HISTORY: M79.673 - Pain in unspecified foot COMPARISON: There are no prior studies available for comparison. FINDINGS: Three views of the right foot are submitted. Osseous mineralization is normal. There is no fracture or dislocation. There is mild degenerative change of the 1st MTP joint, with joint space narrowing and osteophyte formation. There are calcaneal spurs at the plantar aspect and at the insertion of the Achilles tendon. The soft tissues are unremarkable. XR/XR foot RT 2V IMPRESSION: Mild degenerative change of the 1st MTP joint. Calcaneal spurs as described. Electronically signed by: Jn Becker MD 09/28/2024 08:49 AM EDT
--- OUTSIDE RECORDS SUMMARY | 2024-09-28 08:11 | XMS_ITS | Clinical Summary ---
Author Organization [employer] [facility] Address [address] [place] [address] [address] [place] [address] Care Team Providers Care Extrusion Press Operator Name Role Phone Unavailable Primary Care [...] recession Dental calculus Gingival bleeding Fractured dental druze with loss of material from Last 3 Months or Most Recently Relevant to Health Maintenance Insurance DENTAL-[facility] MEDICAID STAND ADULT DENTAL-[facility] MEDICAID STAND ADULT
[2024-09-28 10:27] LABS: MANUAL DIFF FLAG NO
[2024-09-28 10:45] LABS: Hematocrit 38.6 % (37.0-47.0); Hemoglobin 12.6 g/dl (12.0-16.0); Imm Gran Abs Auto 0.01 X10*3/uL (0.00-0.03); Imm Gran Pct Auto 0.2 % (0.0-0.4); Lymphocytes Absolute Auto 1.8 X10*3/uL (1.2-4.9); Mean Corpuscular HGB Conc 32.6 g/dl (31.0-35.0); Mean Corpuscular Hemoglobin 27.5 pg (27.0-33.0); Mean Corpuscular Volume 84.1 fL (80.0-98.0); NRBC Abs Auto 0.000 X10*3/uL (0.0-0.012); NRBC Pct Auto 0.0 /100WBC (0.0-0.2); Platelet Count 181 X10*3/uL (160-400); Red Blood Count 4.59 X10*6/uL (4.20-5.50); White Blood Count 4.4 X10*3/uL (4.8-10.8)
[2024-09-28 11:12] LABS: Alanine Aminotransferase 18 U/L (0-31); Albumin Level 4.4 g/dL (3.5-5.0); Alkaline Phosphatase 56 U/L (39-117); Anion Gap 12 (12-20); Aspartate Amino Transferase 22 U/L (5-31); Blood Urea Nitrogen 15 mg/dL (9-16); Calcium 9.0 mg/dL (8.4-10.2); Carbon Dioxide 26 mmol/L (22-29); Chloride 107 mmol/L (96-108); Cholesterol 246 mg/dL (<200); Estimated Glomerular Filt Rate > 60; HDL Cholesterol 62 mg/dL (>40); Potassium 3.9 mmol/L (3.3-5.1); Sodium 141 mmol/L (135-145); Total Protein 7.1 g/dL (6.5-8.0); Triglycerides 127 mg/dL (<150)
== END 2024-09-28 08:07 | disposition home or self-care (01) ==
LOC: HO.HMGCX 08:06
PROVIDERS: PCP Internal Medicine; Visit Provider Internal Medicine
DX: Z00.01 Encounter for general adult medical examination with abnormal findings (principal); M79.671 Pain in right foot; E55.9 Vitamin D deficiency, unspecified; M85.80 Other specified disorders of bone density and structure, unspecified site; R03.0 Elevated blood-pressure reading, without diagnosis of hypertension; Z13.6 Encounter for screening for cardiovascular disorders; Z13.29 Encounter for screening for other suspected endocrine disorder
CPT/HCPCS: 36415; 73620; 80053; 80061; 84443; 85025

== ENCOUNTER → 2024-09-28 08:32 | Outpatient (BNV) | payer MEDICARE, MEDICAID, SELFPAY | PROVIDERS: PCP Internal Medicine; Visit Provider Radiology Diagnostic Radiology | DX: M19.071 Primary osteoarthritis, right ankle and foot (principal) | CPT/HCPCS: 73620 ==

== ENCOUNTER 2024-10-20 13:39 | Outpatient (AMB) | payer MEDICARE, MEDICAID, SELFPAY ==
--- NOTE | 2024-10-20 13:51 | A.OFFVIS_ITS ---
Vital Signs 10/20/24 14:10 Height 5 ft 1 in Weight 143 lb BMI 27.0 Intake Visit Reasons: New Pt - right foot/heel pain Intake Note: Karen is a 69 year old female who presents today as a new patient for a evaluation of her right foot/heel pain. She was seen at the walk in clinic on 07/05/24 for plantar fasciitis of the right foot. At her visit in the walk in clinic she was advised to wear a lace-up shoe and avoid walking barefoot, Ice and stretch daily. Patient reports that this has been going on for 3 - 4 months. She mentions her pain is worse when she first gets up in the morning. Also, her pain will worsen if she is walking for a long period of time. Patient was given Naprosyn 500mg which didn't give her relief. She states that her pain is a bit better today, however her pain is worse when she is walking. IMPRESSION: Mild degenerative change of the 1st MTP joint. Calcaneal spurs as described. Allergies Penicillins (PENICILLINS) Allergy (Unknown, Verified 10/20/24 14:08) RASH pseudoephedrine (Sudafed) Allergy (Unknown, Verified 10/20/24 14:08) Unknown Sulfa (Sulfonamide Antibiotics) (SULFA (SULFONAMIDE ANTIBIOTICS)) Allergy (Unknown, Verified 10/20/24 14:08) RASH Medication List - Last Reconciled 10/20/24 by Matheus Santamaria DPM [Blood pressure monitor As directed] HPI HPI New Pt - right foot/heel pain: Details: 69-year-old female with past medical history hypertension and renal stone presents for initial evaluation of right heel and calf pain. She notes that she has had right heel pain since June. Denies any acute trauma or onset of injury. Pain is worse first step in the morning. She has been performing range of motion and stretching exercise daily along with frozen water bottle therapy. She notes the pain has improved over the past week since she has had less activity. She has also been complaining of recent onset of right calf pain that started over the past few weeks. She denies any shortness of breath or chest pain. Denies acute injury/trauma to the calf. She is planned for surgery for her renal stone on October 24. She has not been taking any of her medications for a week due to her planned procedure. [facility] Medical History Cellulitis Renal calculi Vaginal atrophy Vitamin D deficiency Cirrhosis High cholesterol Surgical History History of urologic surgery History of biopsy History of lithotripsy History of tubal ligation History of foot surgery Family History Father No problems noted. Mother Depression Mental health disorder Social History Housing: Apartment Alcohol intake: never Patient Tobacco Use Status: Never used Tobacco e-Cigarette/Vaping Use: Never Used Second Hand Smoke Exposure: No service: No Current occupational status: retired Cognitive needs: No Hearing needs: No Vision needs: Yes Female Reproductive History Menstrual Age of Menarche: 13 Review of Systems Const All systems reviewed & are unremarkable except as noted in HPI and below Physical Exam Extrem Other: *Bilateral Lower Extremity Focused Exam Vascular: DP/PT 2/4, CFT<3s to digits, TG warm to cool, no pedal edema, no edema to the right calf Derm: No open wounds or lacerations. Neuro: Protective sensation grossly intact to bilateral lower extremities. MSK: (+) pain on palpation of medial calcaneal tubercle right heel, no tenderness on palpation of the Achilles tendon, moderate tenderness to the calf on dorsiflexion of the ankle, mild tenderness on calf squeeze, the calf is supple with no induration. Assessment & Plan Assessment & Plan (1) Plantar fasciitis of right foot: Comment: Patient's history coupled with her examination is consistent with chronic right plantar fasciitis. Code(s): M72.2 - Plantar fascial fibromatosis Category: Medical Plan: * Discussed etiology of right heel pain. * Recommend continued rest, ice, and elevation. * Discussed stretching and range of motion exercises as first line therapy. * Referred for physical therapy. * Offered cortisone injection however the patient states she has surgery next week and would like to hold off on the injection to avoid any adverse effects. Recommended patient follows up in 1 month to plan for possible cortisone injection if her symptoms persist. (2) Strain of gastrocnemius tendon of right lower extremity: Comment: Favor gastroc strain due to heel pain and daily calf stretching as opposed to DVT Code(s): S86.111A - Strain of other muscle(s) and tendon(s) of posterior muscle group at lower leg level, right leg, initial encounter Category: Medical Plan: * Discussed etiology of calf pain likely related to her at-home therapy regimen. * Recommend applying heat pack 2-3x per day. * Referred for physical therapy. * She was referred for an ultrasound venous of the right calf to rule out DVT given her acute onset of calf pain without injury. Orders: Orders PT Evaluation and Treatment Today M72.2 - Plantar fascial fibromatosis, S86.111A - Strain of other muscle(s) and tendon(s) of posterior muscle group at lower leg level, right leg, initial encounter US venous duplex LE RT Today I82.409 - Acute embolism and thrombosis of unspecified deep veins of unspecified lower extremity, M79.661 - Pain in right lower leg Coding Level of Care Code Est Pt Level 3 (76827) Diagnoses Plantar fasciitis of right foot M72.2 Strain of gastrocnemius tendon of right lower extremity S86.111A Time Spent (min) 30
[2024-10-20 14:10] VITALS: BMI 27.0
--- OUTSIDE RECORDS SUMMARY | 2024-10-20 14:55 | XMS_ITS | Encounter Summary ---
Author Organization [employer] [facility] Address [address] [facility] [address]t [place] [address] Care Team Providers Care Generator Switchboard Operator Name Role Phone Unavailable Primary Care [...]
--- OUTSIDE RECORDS SUMMARY | 2024-10-20 14:55 | XMS_ITS | Encounter Summary ---
Author Organization [employer] [facility] Address [address] [facility] [address] [place] [address] Care Team Providers Care Wafer Slicer Name Role Phone Unavailable Primary Care Provider [...]
--- OUTSIDE RECORDS SUMMARY | 2024-10-20 14:55 | XMS_ITS | Encounter Summary ---
Author Organization [employer] [facility] Address [address] [facility] [address] [place] [address] Care Team Providers Care Box Sorter Name Role Phone Unavailable Primary Care Provider [...]
--- OUTSIDE RECORDS SUMMARY | 2024-10-20 14:55 | XMS_ITS | Encounter Summary ---
Author Organization [employer] Address [address] [facility] [address] [place] [address] Care Team Providers Care Network Security Officer Name Role Phone Unavailable Primary Care Provider Unavailabl e Encounter Details Date Type Department Care Team (Late st Contact Info) Description 04/18/2022 Abstract [facility] ADULT DENTAL [address] [place], [place] [phone] Cesar Umaña DDS [address] [place], [place] [phone] Social History Tobacco Use Types Packs/Day Years [...]
--- OUTSIDE RECORDS SUMMARY | 2024-10-20 14:55 | XMS_ITS | Clinical Summary ---
Author Organization [employer] [facility] Address [address] [place] [address] [address] [place] [address] Care Team Providers Care Managed Services Consultant Name Role Phone Unavailable Primary Care Provider [...] 02/05/2023, 12/16/2021 Dental Prophylaxis 08/08/2023 02/05/2023, 05/09/2022 Dental X-Ray: Bitewings 02/07/2024 02/06/20 23, 12/16/2021 Tobacco Screening 04/15/2024 04/15/2023 COVID-19 Vaccine (2024-2 6 season) 2024 02/26/2021, 07/19/2020, 06/21/2020 Influenza Vaccine (#1) 2024 DTaP/Tdap/Td Vaccines (2 [...] recession Dental calculus Gingival bleeding Fractured dental religious with loss of material from Last 3 Months or Most Recently Relevant to Health Maintenance Insurance D[facility]AL-[facility] MEDICAID STAND ADULT [facility]AL-[facility] MEDICAID STAND ADULT
== END 2024-10-20 14:34 | disposition home or self-care (01) ==
LOC: HO.HPODS 13:40
PROVIDERS: PCP Internal Medicine; Visit Provider Student in an Organized Health Care Education/Training Program
DX: M72.2 Plantar fascial fibromatosis (principal); S86.111A Strain of other muscle(s) and tendon(s) of posterior muscle group at lower leg level, right leg, initial encounter
CPT/HCPCS: 99203

== ENCOUNTER → 2024-10-20 13:39 | Outpatient (BNVA) | payer MEDICARE, MEDICAID, SELFPAY | PROVIDERS: PCP Internal Medicine; Visit Provider Student in an Organized Health Care Education/Training Program | DX: M72.2 Plantar fascial fibromatosis (principal); S86.111A Strain of other muscle(s) and tendon(s) of posterior muscle group at lower leg level, right leg, initial encounter; M79.661 Pain in right lower leg | CPT/HCPCS: 99202 ==

== ENCOUNTER 2024-10-25 12:03 | Day surgery (SDC) | payer MEDICARE, MEDICAID, SELFPAY ==
--- OUTSIDE RECORDS SUMMARY | 2024-10-18 14:07 | XMS_ITS | Clinical Summary ---
Author Organization [employer] [facility] Address [address] [place] [address] [address] [place] [address] Care Team Providers Care Fiscal Economist Name Role Phone Unavailable Primary Care Provider [...] recession Dental calculus Gingival bleeding Fractured dental jew with loss of material from Last 3 Months or Most Recently Relevant to Health Maintenance Insurance [facility] MEDICAID STAND ADULT D[facility]AL-[facility] MEDICAID STAND ADULT
--- OUTSIDE RECORDS SUMMARY | 2024-10-18 14:07 | XMS_ITS | Encounter Summary ---
Author Organization [employer] [facility] Address [address] [facility] [address] [place] [address] Care Team Providers Care Senior Receptionist Name Role Phone Unavailable Primary Care Provider [...]
--- OUTSIDE RECORDS SUMMARY | 2024-10-18 14:07 | XMS_ITS | Encounter Summary ---
Author Organization [employer] [facility] Address [address] [facility] 7t [place] [address] Care Team Providers Care Coffee Bar Attendant Name Role Phone Unavailable Primary Care Provider [...]
--- OUTSIDE RECORDS SUMMARY | 2024-10-18 14:07 | XMS_ITS | Encounter Summary ---
Author Organization [employer] [facility] Address [address] [facility] [address] [place] [address] Care Team Providers Care Infrastructure Developer Name Role Phone Unavailable Primary Care Provider [...]
--- OUTSIDE RECORDS SUMMARY | 2024-10-18 14:07 | XMS_ITS | Encounter Summary ---
Author Organization [employer] Address [address] [facility] 7t [place] [address] Care Team Providers Care Laser Engineer Name Role Phone Unavailable Primary Care Provider Unavailabl e Encounter Details Date Type Department Care Team (Late st Contact Info) Description 04/18/2022 Abstract [facility] ADULT DENTAL [address], [place] [phone] Cesar Umaña DDS [address], [place] [phone] Social History Tobacco Use Types Packs/Day Years [...]
[2024-10-21 14:05] VITALS: BMI 27.0
--- NOTE | 2024-10-24 11:39 | HO.ANESPROP2 ---
Documented by User: Yecenia Mcgarry NP 10/24/24 11:39 HPI - Anesthesia Eval Consult details Narrative: 69 yr old female for left Cystoscopy, Ureteroroscopy, Retro, Laser,with stent placement PMFSH Active Problems Active Problems: All Active Problems (Updated 10/20/24 @ 14:36 by Matheus Santamaria DPM) Strain of gastrocnemius tendon of right lower extremity (Acute) Breast lump on left side at 2 o'clock position (Acute) Heel pain (Acute) Pre-hypertension (Acute) Hydronephrosis (Acute) Plantar fasciitis of right foot (Acute) Abnormal cytology (Acute) Generalized headaches (Acute) Lipoma of abdominal wall (Acute) Impaired fasting blood sugar (Acute) Microscopic hematuria (Acute) White coat syndrome with high blood pressure but without hypertension (Acute) White coat syndrome without hypertension (Acute) Hypertension, essential (Acute) Renal calculi (Acute) Hiatal hernia (Acute) Pre-procedure lab exam (Acute) Myoma (Acute) Complex ovarian cyst (Acute) Encounter for general adult medical examination with abnormal findings (Acute) Adnexal fullness (Acute) Well woman exam (Acute) Blurring of vision (Acute) Skin cancer screening (Acute) Encounter for routine gynecological examination (Acute) Intermittent asthma (Acute) Change in mole (Acute) Establishing care with new doctor, encounter for (Acute) Lipid disorder (Acute) Upper respiratory tract infection (Acute) Right knee pain (Acute) Swelling of knee joint, right (Acute) Post-menopausal (Acute) Annual physical exam (Acute) Vitamin D deficiency (Acute) Impaired glucose tolerance (Acute) Fungal dermatitis (Acute) Osteopenia (Acute) Atopic dermatitis, mild (Acute) Allergic rhinitis (Acute) Vision abnormalities (Acute) Breast cancer screening by mammogram (Acute) Blood pressure elevated without history of HTN (Acute) Colonoscopy refused (Acute) High cholesterol (Acute) Past Medical History Medical History Cellulitis Renal calculi Vaginal atrophy Vitamin D deficiency Cirrhosis High cholesterol Family History Family History Father No problems noted. Mother Depression Mental health disorder Surgical History Surgical History History of urologic surgery History of biopsy History of lithotripsy History of tubal ligation History of foot surgery Social History Social History Housing: Apartment Alcohol intake: never Patient Tobacco Use Status: Never used Tobacco e-Cigarette/Vaping Use: Never Used Second Hand Smoke Exposure: No Have you been hit, kicked, punched, or otherwise hurt by someone within the past year? If so, by whom?: No Are you DNR?: No Advance Directives: No Advance Directives Information Provided: Yes service: No Current occupational status: retired Cognitive needs: No Hearing needs: No Vision needs: Yes Meds Allergies Allergy/AdvReac Type Severity Reaction Status Date / Time Sulfa (Sulfonamide Allergy Severe RASH Verified 10/25/24 12:23 Antibiotics) (SULFA (SULFONAMIDE ANTIBIOTICS)) Penicillins (PENICILLINS) Allergy Intermediate RASH Verified 10/25/24 12:23 pseudoephedrine (Sudafed) Allergy Intermediate Rash Verified 10/25/24 12:23 Home Medications ?Medication ?Instructions ?Recorded ?Confirmed ?Last Taken ?Type atenolol 25 mg tablet 25 mg PO DAILY 10/25/24 10/25/24 Unknown History atorvastatin 20 mg tablet 20 mg PO BEDTIME 10/25/24 10/25/24 Unknown History loratadine 10 mg tablet (Claritin) 10 mg PO DAILY PRN allergies 10/25/24 10/25/24 10/24/24 History Exam Height,Weight and Vital Signs: Height 5 ft 1 in Weight 64.864 kg Documented by User: Dori Acosta MD 10/25/24 13:33 PMFSH Past Medical History Medical History Cellulitis Renal calculi Vaginal atrophy Vitamin D deficiency Cirrhosis High cholesterol Family History Family History Father No problems noted. Mother Depression Mental health disorder Surgical History Surgical History History of urologic surgery History of biopsy History of lithotripsy History of tubal ligation History of foot surgery History of Problems with Anesthesia: No Social History Social History Housing: Apartment Alcohol intake: never Patient Tobacco Use Status: Never used Tobacco e-Cigarette/Vaping Use: Never Used Second Hand Smoke Exposure: No Have you been hit, kicked, punched, or otherwise hurt by someone within the past year? If so, by whom?: No Are you DNR?: No Advance Directives: No Advance Directives Information Provided: Yes service: No Current occupational status: retired Cognitive needs: No Hearing needs: No Vision needs: Yes Meds Allergies Allergy/AdvReac Type Severity Reaction Status Date / Time Sulfa (Sulfonamide Allergy Severe RASH Verified 10/25/24 12:23 Antibiotics) (SULFA (SULFONAMIDE ANTIBIOTICS)) Penicillins (PENICILLINS) Allergy Intermediate RASH Verified 10/25/24 12:23 pseudoephedrine (Sudafed) Allergy Intermediate Rash Verified 10/25/24 12:23 Home Medications ?Medication ?Instructions ?Recorded ?Confirmed ?Last Taken ?Type atenolol 25 mg tablet 25 mg PO DAILY 10/25/24 10/25/24 Unknown History atorvastatin 20 mg tablet 20 mg PO BEDTIME 10/25/24 10/25/24 Unknown History loratadine 10 mg tablet (Claritin) 10 mg PO DAILY PRN allergies 10/25/24 10/25/24 10/24/24 History Exam Airway Mallampati Class: II TM Dist: >3cm Neck ROM: Full Loose/Missing/Broken Teeth: No Heart: RRR Lungs: CTA Assessment and Plan Assessment Anesthesia Assessment: Anesthesia Plan Discussed and Chart Reviewed Final Anesthetic Review History of Problems with Anesthesia: No NPO: Yes ASA Class: II Final Preanesthetic Review: Meds/Allgs Chart Reviewed, Consent Obtained/Reviewed and Anes Risks/Benef Reviewed Patient Risk: Low Procedure Risk: Low Anesthetic Plan Anesthetic Plan: GA Disposition: Standard PACU
[2024-10-25] VITALS (8 sets, daily range): BP systolic 144–184; BP diastolic 58–76; PULSE 60–83; RESP 10–20; TEMP 36.1–36.8; O2SAT 97–100; BMI 27.0
--- NOTE | ~2024-10-25 | FL_ITS ---
EXAMINATION: FL GUIDANCE ONLY HISTORY: left stone COMPARISON: Correlation is made with a CT urogram dated 08/16/2024. TECHNIQUE: Fluoroscopy time: 1 minute, 3.8 seconds. Cumulative Dose: 5.8003 mGy. DAP: 2.5230 mGym2 Images: 22. FINDINGS: Multiple images from bilateral retrograde ureterograms are submitted. Opacification of the right renal collecting system demonstrates mild hydronephrosis. The ureter is normal in caliber. The left ureter is normal in caliber. The intrarenal collecting system is grossly unremarkable in appearance. FL/FL guidance in OR IMPRESSION: Fluoroscopy during procedure. Please see procedure report for additional information. Electronically signed by: Jn Becker MD 10/25/2024 02:59 PM EDT
[2024-10-25] MEDS: Lactated Ringers 1,000 ML 100 ML IVCONT (12:35)
--- NOTE | 2024-10-25 13:10 | MHC.SHP ---
Pre-Procedural Eval Section A - 24 Hr Update-Section A only Date of Service: 10/25/24 The patient is an INPATIENT: No The patient has been examined within 24 hours of the surgical procedure. The History & Physical has been completed within 30 days and I have reviewed it.: Yes Section B - Complete if H&P > 30 days Chief Complaint: Unspecified hydronephrosis Allergies: Allergies Allergy/AdvReac Type Severity Reaction Status Date / Time Sulfa (Sulfonamide Allergy Severe RASH Verified 10/25/24 12:23 Antibiotics) (SULFA (SULFONAMIDE ANTIBIOTICS)) Penicillins (PENICILLINS) Allergy Intermediate RASH Verified 10/25/24 12:23 pseudoephedrine (Sudafed) Allergy Intermediate Rash Verified 10/25/24 12:23 Plan Diagnosis/Plan: Unchanged I have reviewed the history and physical and performed a pertinent physical examination on my patient. No changes have occurred unless specified. Plan for Cystoscopy, Left ureteroscopy, possible laser lithotripsy, possible ureteral stent. Risks discussed included but not limited to, possible need to repeat procedure if stone is not completely fragmented, Irritative voiding symptoms, bladder spasms, urgency, blood in urine. Time Spent With Patient Time: Total time managing care of this patient today ____ minutes.
--- NOTE | 2024-10-25 14:46 | W.PM.OPN ---
Operative Note Operative Note Date of Service: 10/25/24 Narrative: PreOperative Diagnosis:?? Left ureteral stones Post Operative Diagnosis:??No stones visualized in the left ureter Procedure: - Cystoscopy, bilateral retrograde, left ureteroscopy Surgeon:?Dr Marcie العلي Anesthesia:? General Indications for procedure: Karen has a history of kidney stones. Recent imaging CT right renal stones nonobstructing. Left ureteral stones no hydronephrosis. Bilateral partial duplex system. Findings: Calcifications seen in pelvis on fluoroscopy, retrogrades and ureteroscopy performed, no stones visualized in the left distal ureter, calcifications seen on fluoroscopy are likely phleboliths Procedure: After informed consent was verified the patient was brought to the operating placed on the OR table in supine position.? General Anesthesia was administered per protocol.? The patient was placed in lithotomy position, prepped and draped in the usual sterile fashion.? Safety pause time-out and side of surgery confirmed.? Antibiotics confirmed. 2% lidocaine jelly 10 mL was passed transurethrally. A 22 Citizen Of [place] cystoscope was inserted transurethrally, . The bladder was visualized.? Both ureteric orifices were in normal position. An open-ended ureteral catheter was passed into the right ureteral orifice and a retrograde examination was performed. Next retrograde was done on the left side. A guidewire was passed through the ureteral catheter into the kidney. The balloon dilator size 12 fr x 4 cm was passed over the guide-wire the balloon was inflated to 8 mmHg and the intramural ureter was dilated for 30 seconds. The balloon was deflated and removed. After removing the balloon dilator a 2nd guidewire was then passed into the kidney to use as a safety. The cystoscope was removed, leaving both guidewires in place. One guidewire was used as the safety and was attached to the draping. The semi rigid ureteroscope was passed over one of the guidewires. The ureteroscope was passed up to the proximal ureter there were no stones seen in the ureter. The ureter was carefully evaluated. The ureteroscope was removed and cystoscopy was again done to evaluate for a 2nd orifice along the bladder with both a 30 and 70 degree lens. Left ureteroscope was performed another time and no ureteral stone was visualized. A left retrograde was done again there was no visualization of duplicated ureter The bladder was emptied.? The rigid cystoscope was removed. ? The patient tolerated the procedure well and was brought to the recovery room in stable condition. Complications: None Drains: None
== END 2024-10-25 16:07 | disposition home or self-care (01) ==
PROVIDERS: PCP Internal Medicine; Visit Provider Urology
PROC: (CPT 52351; principal; 2024-10-25 14:20)
DX: N13.30 Unspecified hydronephrosis (principal); Q62.5 Duplication of ureter; Z87.442 Personal history of urinary calculi; N95.2 Postmenopausal atrophic vaginitis; N28.1 Cyst of kidney, acquired; Z87.2 Personal history of diseases of the skin and subcutaneous tissue; D25.9 Leiomyoma of uterus, unspecified; E55.9 Vitamin D deficiency, unspecified; E78.00 Pure hypercholesterolemia, unspecified; K74.60 Unspecified cirrhosis of liver; Z88.0 Allergy status to penicillin; Z88.2 Allergy status to sulfonamides; Z98.890 Other specified postprocedural states
CPT/HCPCS: 52351; C1726; C1758; C1769; J1956; J2003; J2405; J2704; J3010; Q9967

== ENCOUNTER → 2024-10-25 12:03 | Outpatient (BNV) | payer MEDICARE, MEDICAID, SELFPAY | PROVIDERS: PCP Internal Medicine; Visit Provider Urology | DX: N20.1 Calculus of ureter (principal) | CPT/HCPCS: 52351; 74420 ==

== ENCOUNTER 2024-10-27 09:41 | Outpatient (REF) | payer MEDICARE, MEDICAID, SELFPAY ==
--- NOTE | ~2024-10-27 | US_ITS ---
EXAMINATION: US TRIPLEX LOWER EXTREMITY, RIGHT CLINICAL INFORMATION: Right lower extremity pain COMPARISON: None available. TECHNIQUE: Color-flow triplex imaging with spectral analysis and compression Doppler were performed on the right lower extremity. FINDINGS: Respiratory variation, normal compression and augmented flow are noted throughout the right lower extremity. The visualized common femoral vein, superficial femoral vein, profunda femoral vein, popliteal vein and midcalf peroneal and posterior tibial venous segments show no evidence of deep venous thrombosis. US/US venous duplex LE RT IMPRESSION: No evidence of deep venous thrombosis involving the right lower extremity. Electronically signed by: Darryn Beckwith MD 10/27/2024 10:27 AM EDT
--- OUTSIDE RECORDS SUMMARY | 2024-10-27 11:21 | XMS_ITS | Encounter Summary ---
Author Organization [employer] Address [address] [facility] 7t [place] [address] Care Team Providers Care Fire Fighters Dispatcher Name Role Phone Unavailable Primary Care Provider Unavailabl e Encounter Details Date Type Department Care Team (Late st Contact Info) Description 04/18/2022 Abstract [facility] ADULT DENTAL [address] [place], [place] [phone] Cesar Umaña DDS [address] [place], [place] [phone] Social History Tobacco Use Types Packs/Day Years [...]
--- OUTSIDE RECORDS SUMMARY | 2024-10-27 11:21 | XMS_ITS | Clinical Summary ---
Author Organization [employer] [facility] Address [address] [place] [address] 7t [place] [address] Care Team Providers Care Point Of Care Technician Name Role Phone Unavailable Primary Care [...] Most Recently Relevant to Health Maintenance Insurance DENTAL-[facility] MEDICAID STAND ADULT DENTAL-[facility] MEDICAID STAND ADULT
--- OUTSIDE RECORDS SUMMARY | 2024-10-27 11:22 | XMS_ITS | Encounter Summary ---
Author Organization [employer] [facility] Address [address] [facility] 7t [place] [address] Care Team Providers Care Material Handling Crew Supervisor Name Role Phone Unavailable Primary Care [...]
--- OUTSIDE RECORDS SUMMARY | 2024-10-27 11:22 | XMS_ITS | Encounter Summary ---
Author Organization [employer] [facility] Address [address] [facility] 7[address] [place] [address] Care Team Providers Care Surveyor Oil Well Directional Name Role Phone Unavailable Primary Care Provider [...]
--- OUTSIDE RECORDS SUMMARY | 2024-10-27 11:22 | XMS_ITS | Encounter Summary ---
Author Organization [employer] [facility] Address [address] [facility] [address] [place] [address] Care Team Providers Care Cooker Sulfate Name Role Phone Unavailable Primary Care Provider [...]
== END 2024-10-27 09:42 | disposition home or self-care (01) ==
LOC: HO.US 09:41
PROVIDERS: PCP Internal Medicine; Visit Provider Student in an Organized Health Care Education/Training Program
DX: I82.401 Acute embolism and thrombosis of unspecified deep veins of right lower extremity (principal); M79.661 Pain in right lower leg
CPT/HCPCS: 93971

== ENCOUNTER → 2024-10-27 09:42 | Outpatient (BNV) | payer MEDICARE, MEDICAID, SELFPAY | PROVIDERS: PCP Internal Medicine; Visit Provider Radiology Diagnostic Radiology | DX: M79.604 Pain in right leg (principal) | CPT/HCPCS: 93971 ==

== ENCOUNTER 2024-11-01 12:39 | Outpatient (REF) | payer MEDICARE, MEDICAID, SELFPAY ==
--- NOTE | ~2024-11-01 | US_ITS ---
EXAMINATION(S): 1. MM DIAGNOSTIC DIGITAL BREAST TOMOSYNTHESIS, BILATERAL 2. Targeted ultrasound of the left breast CLINICAL INFORMATION: Left breast lump at 2 o'clock position COMPARISON: Comparison made to multiple prior, most recent April 09, 2022, and most remote December 24, 2018. TECHNIQUE: Digital breast tomosynthesis is performed in both the mediolateral oblique and craniocaudal views along with computer-aided detection (CAD). Synthesized 2D images are generated from the tomosynthesis. Skin BB marker was placed at the location of the palpable concern as indicated by the patient in the upper outer quadrant of the left breast. FINDINGS: BREAST COMPOSITION: There are scattered areas of fibroglandular density (ACR BI-RADS breast composition Category b). RIGHT BREAST: No significant masses, suspicious calcifications or other abnormalities are seen. LEFT BREAST: No significant masses, suspicious calcifications or other abnormalities are seen. In particular, no suspicious mammographic findings adjacent to the BB skin marker in the upper outer quadrant. Targeted ultrasound of the left breast was performed at the location of the palpable concern. The survey centered at 2 o'clock position 7 cm from the nipple did not reveal suspicious sonographic findings. US/US breast LT limited mamm only IMPRESSION: RIGHT BREAST: Negative, no mammographic evidence of malignancy. Normal interval follow-up is recommended in 12 months. LEFT BREAST: Negative, no evidence of malignancy. In particular, no suspicious findings to accounts for patient's palpable concern. Clinical follow-up is recommended. Otherwise, normal interval follow-up mammogram is recommended in 12 months. ASSESSMENT: BI-RADS 1 - Negative RECOMMENDATION: 1. Patient should be managed based on the clinical impression. 2. Otherwise, routine annual screening mammography. Results were provided to the patient at time of visit by the technologist. This patient's information was entered into a reminder system with a target due date for their next mammogram. Electronically signed by: Dante Massey MD 11/01/2024 02:25 PM EDT
--- OUTSIDE RECORDS SUMMARY | 2024-11-01 16:40 | XMS_ITS | Encounter Summary ---
Author Organization [employer] [facility] Address [address] [facility] [address] [place] [address] Care Team Providers Care Milieu Therapist Name Role Phone Unavailable Primary Care Provider [...]
--- OUTSIDE RECORDS SUMMARY | 2024-11-01 16:40 | XMS_ITS | Encounter Summary ---
Author Organization [employer] [facility] Address [address] [facility] [address] [place] [address] Care Team Providers Care Mercury Washer Name Role Phone Unavailable Primary Care Provider [...]
--- OUTSIDE RECORDS SUMMARY | 2024-11-01 16:40 | XMS_ITS | Encounter Summary ---
Author Organization [employer] Address [address] [facility] [address] [place] [address] Care Team Providers Care Dining Room Attendant Name Role Phone Unavailable Primary Care Provider Unavailabl e Encounter Details Date Type Department Care Team (Late st Contact Info) Description 04/18/[address] [facility] ADULT DENTAL [address] [place], [place] [phone] Cesar Umaña DDS [address] [place], [place] [phone] Social History Tobacco Use Types Packs/Day Years [...]
--- OUTSIDE RECORDS SUMMARY | 2024-11-01 16:40 | XMS_ITS | Clinical Summary ---
Author Organization [employer] [facility] Address [address] [place] [address] [address] [place] [address] Care Team Providers Care Qa Consultant Name Role Phone Unavailable Primary Care [...] recession Dental calculus Gingival bleeding Fractured dental confucianist with loss of material from Last 3 Months or Most Recently Relevant to Health Maintenance Insurance DENTAL-[facility] MEDICAID STAND ADULT DENTAL-[facility] MEDICAID STAND ADULT
--- OUTSIDE RECORDS SUMMARY | 2024-11-01 16:40 | XMS_ITS | Encounter Summary ---
Author Organization [employer] [facility] Address [address] [facility] [address] [place] [address] Care Team Providers Care Marketing Analytics Lead Name Role Phone Unavailable Primary Care Provider [...]
== END 2024-11-01 12:40 | disposition home or self-care (01) ==
LOC: HO.MAMMO 12:39
PROVIDERS: PCP Internal Medicine; Visit Provider Internal Medicine
DX: N63.21 Unspecified lump in the left breast, upper outer quadrant (principal)
CPT/HCPCS: 76642; 77062; 77066

== ENCOUNTER → 2024-11-01 13:00 | Outpatient (BNV) | payer MEDICARE, MEDICAID, SELFPAY | PROVIDERS: PCP Internal Medicine; Visit Provider Radiology Body Imaging | DX: N63.21 Unspecified lump in the left breast, upper outer quadrant (principal) | CPT/HCPCS: 76642; 77066; G0279 ==

== ENCOUNTER 2024-11-21 10:50 | Outpatient (AMB) | payer MEDICARE, MEDICAID, SELFPAY ==
--- NOTE | 2024-11-21 11:06 | A.OFFVIS_ITS ---
Vital Signs 11/21/24 11:08 Height 5 ft 1 in Weight 143 lb BMI 27.0 Intake Visit Reasons: Follow Up right foot/heel pain Intake Note: Karen is a 69 year old female who presents today for a follow up on her right foot plantar fasciitis. Pt reports her foot and heel pain has improved and she has been following the exercises that where recommended to her at her last visit. She states the pain has not gone away it comes and goes. She has not heard from PT at this time and she would be interested in getting injections done if possible. Allergies Sulfa (Sulfonamide Antibiotics) (SULFA (SULFONAMIDE ANTIBIOTICS)) Allergy (Severe, Verified 11/21/24 11:10) RASH Penicillins (PENICILLINS) Allergy (Intermediate, Verified 11/21/24 11:10) RASH pseudoephedrine (Sudafed) Allergy (Intermediate, Verified 11/21/24 11:10) Rash HPI HPI Follow Up right foot/heel pain: Details: 69-year-old female with past medical history hypertension and renal stone presents for 1 month follow up evaluation of right heel and calf pain. She notes the calf pain has since resolved. She still has persistent right heel pain, worst after walking .5-1 miles and then sitting at home and resting. She notes that she has had right heel pain since June. Denies any acute trauma or onset of injury. Pain is worse first step in the morning. She has been performing range of motion and stretching exercise daily along with frozen water bottle therapy. [facility] Medical History Cellulitis Renal calculi Vaginal atrophy Vitamin D deficiency Cirrhosis High cholesterol Surgical History History of urologic surgery History of biopsy History of lithotripsy History of tubal ligation History of foot surgery Family History Father No problems noted. Mother Depression Mental health disorder Social History Housing: Apartment Alcohol intake: never Patient Tobacco Use Status: Never used Tobacco e-Cigarette/Vaping Use: Never Used Second Hand Smoke Exposure: No service: No Current occupational status: retired Cognitive needs: No Hearing needs: No Vision needs: Yes Female Reproductive History Menstrual Age of Menarche: 13 Physical Exam Vital Signs: BMI result Body Mass Index 27.0 Extrem Other: *Bilateral Lower Extremity Focused Exam Vascular: DP/PT 2/4, CFT<3s to digits, TG warm to cool, no pedal edema, no edema to the right calf Derm: No open wounds or lacerations. Neuro: Protective sensation grossly intact to bilateral lower extremities. MSK: (+) moderate tenderness on palpation of medial calcaneal tubercle right heel, no tenderness on palpation of the plantar fascia bands or the Achilles tendon. No tenderness to the calf on dorsiflexion of the ankle, no tenderness on calf squeeze, the calf is supple with no induration. Ankle dorsiflexion 5 degrees on knee extension, 10 degrees on knee flexion. Office Procedures AMB Flexor Tendon/Plantar POD Tendon Injection Details of AMB Procedure: Procedure: Steroid injection Location: Right heel Medication: 1.5cc 0.5% bupivicaine, 1cc dexamethasone, 0.5cc kenalog? Description: The right heel was prepped using alcohol. A steroid injection was administered using sterile technique. The site was dressed using a band-aid. Post-procedure Instructions: The patient was instructed to apply ice to the injection site. The patient was advised to call the office if there are signs or symptoms of worsening pain, infection, or steroid flare. Tendon Injection POD1: - Plantar Fascia Injection All charges added?: Procedure code (CPT) selection complete Office Meds triamcinolone acetonide 40 mg/mL suspension for injection Performing Provider: Matheus Santamaria DPM Performing Location: [facility] Administered by: Matheus Santamaria DPM on 11/21/24 11:32 Dose Route Admin Location Dispensed Lot Number Expiration Date [facility] 20 mg Tendon Sheath Inj. 1 mL [id number] [employer] Total Dispensed Waste 1 mL 50 % dexamethasone sodium phosphate 4 mg/mL injection solution Performing Provider: Matheus Santamaria DPM Performing Location: [facility] Administered by: Matheus Santamaria DPM on 11/21/24 11:32 Dose Route Admin Location Dispensed Lot Number Expiration Date [facility] 4 mg Tendon Sheath Inj. 1 mL [id number] [employer] Total Dispensed Waste 1 mL 0 % bupivacaine (PF) 0.5 % (5 mg/mL) injection solution Performing Provider: Matheus Santamaria DPM Performing Location: [facility] Administered by: Matheus Santamaria DPM on 11/21/24 11:32 Dose Route Admin Location Dispensed Lot Number Expiration Date [facility] Genetic[facility] 2 mL intra-articular 10 mL [id number] [facility] Total Dispensed Waste 10 mL 80 % Results Reviewed Results Reviewed: Ordering Physician: Matheus Santamaria DPM Date of Service: 10/27/24 Procedure(s): US venous duplex LE RT IMPRESSION: No evidence of deep venous thrombosis involving the right lower extremity. Assessment & Plan Assessment & Plan (1) Plantar fasciitis of right foot: Comment: Patient's history coupled with her examination is consistent with chronic right plantar fasciitis. Code(s): M72.2 - Plantar fascial fibromatosis Category: Medical Plan: * Discussed etiology of right heel pain. * Discussed stretching and range of motion exercises as first line therapy. * Instructed the patient to schedule her appointment with physical therapy. * Steroid injection administered to right heel. * Follow up in 3 weeks. (2) Strain of gastrocnemius tendon of right lower extremity: Code(s): S86.111A - Strain of other muscle(s) and tendon(s) of posterior muscle group at lower leg level, right leg, initial encounter Category: Medical Qualifiers: Encounter type: subsequent encounter Qualified Code(s): S86.111D - Strain of other muscle(s) and tendon(s) of posterior muscle group at lower leg level, right leg, subsequent encounter Plan: * Resolved Orders: Orders AMB Flexor Tendon / Plantar Fascia Injection Today M72.2 - Plantar fascial fibromatosis Coding Level of Care Code Est Pt Level 3 (64244) Diagnoses Plantar fasciitis of right foot M72.2 Strain of gastrocnemius tendon of right lower extremity, subsequent encounter S86.111D Encounter type: subsequent encounter CPT Codes Tendon Injection - Tendon Injection POD1: - Plantar Fascia Injection ([id number])
[2024-11-21 11:08] VITALS: BMI 27.0
--- OUTSIDE RECORDS SUMMARY | 2024-11-21 13:08 | XMS_ITS | Encounter Summary ---
Author Organization [employer] [facility] Address [address] [place] [address] Care Team Providers Care Driver License Reviewing Officer Name Role Phone Unavailable Primary Care [...]
--- OUTSIDE RECORDS SUMMARY | 2024-11-21 13:08 | XMS_ITS | Clinical Summary ---
Author Organization [employer] [facility] Address [address] [place] [address] [address] [place] [address] Care Team Providers Care Regulator Mechanic Name Role Phone Unavailable Primary Care Provider [...] recession Dental calculus Gingival bleeding Fractured dental zoroastrianism with loss of material from Last 3 Months or Most Recently Relevant to Health Maintenance Insurance [facility] MEDICAID STAND ADULT [facility] MEDICAID STAND ADULT
--- OUTSIDE RECORDS SUMMARY | 2024-11-21 13:08 | XMS_ITS | Encounter Summary ---
Author Organization [employer] [facility] Address [address] [place] [address] Care Team Providers Care Search Specialist Name Role Phone Unavailable Primary Care [...]
--- OUTSIDE RECORDS SUMMARY | 2024-11-21 13:08 | XMS_ITS | Encounter Summary ---
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
--- OUTSIDE RECORDS SUMMARY | 2024-11-21 13:08 | XMS_ITS | Encounter Summary ---
Author Organization [employer] [facility] Address [address] [place] [address] Care Team Providers Care Rackman Name Role Phone Unavailable Primary Care Provider [...]
== END 2024-11-21 11:31 | disposition home or self-care (01) ==
LOC: HO.HPODS 10:51
PROVIDERS: PCP Internal Medicine; Visit Provider Student in an Organized Health Care Education/Training Program
DX: M72.2 Plantar fascial fibromatosis (principal); S86.111D Strain of other muscle(s) and tendon(s) of posterior muscle group at lower leg level, right leg, subsequent encounter
CPT/HCPCS: 20550; 99213

== ENCOUNTER → 2024-11-21 10:50 | Outpatient (BNVA) | payer MEDICARE, MEDICAID, SELFPAY | PROVIDERS: PCP Internal Medicine; Visit Provider Student in an Organized Health Care Education/Training Program | DX: M72.2 Plantar fascial fibromatosis (principal) | CPT/HCPCS: 20550; 99212; J0665; J1100; J3301 ==

== ENCOUNTER 2024-12-13 08:19 | Outpatient (AMB) | payer MEDICARE, MEDICAID, SELFPAY ==
--- NOTE | 2024-12-13 08:25 | MHC.OFFVIS ---
Vital Signs 12/13/24 08:28 Height 5 ft 1 in Weight 143 lb BMI 27.0 Intake Visit Reasons: Follow Up right foot/heel pain Intake Note: Karen is a 69 year old female who presents to the office today for a 3 week follow up appt for her right foot/heel pain. At last visit a steroid injection was administered to her right heel and was advised to schedule appt with physical therapy. Pt states the injection has helped significantly and now her pain is slightly there. She states she currently does not have an appointment with PT Allergies Sulfa (Sulfonamide Antibiotics) (SULFA (SULFONAMIDE ANTIBIOTICS)) Allergy (Severe, Verified 12/13/24 08:28) RASH Penicillins (PENICILLINS) Allergy (Intermediate, Verified 12/13/24 08:28) RASH pseudoephedrine (Sudafed) Allergy (Intermediate, Verified 12/13/24 08:28) Rash HPI HPI Follow Up right foot/heel pain: Details: 69-year-old female with past medical history hypertension and renal stone presents for 3 week follow up of right heel and calf pain. She states that the heel pain has mostly resolved after her right heel injection on 11/21/2024. No longer having calf pain as well. She is still having some occasional posterior heel and arch pain. History: She notes that she has had right heel pain since June. Denies any acute trauma or onset of injury. Pain is worse first step in the morning. She has been performing range of motion and stretching exercise daily along with frozen water bottle therapy. COUNT INCLUDES THE [facility] Medical History Cellulitis Renal calculi Vaginal atrophy Vitamin D deficiency Cirrhosis High cholesterol Surgical History History of urologic surgery History of biopsy History of lithotripsy History of tubal ligation History of foot surgery Family History Father No problems noted. Mother Depression Mental health disorder Social History Housing: Apartment Alcohol intake: never Patient Tobacco Use Status: Never used Tobacco e-Cigarette/Vaping Use: Never Used Second Hand Smoke Exposure: No service: No Current occupational status: retired Cognitive needs: No Hearing needs: No Vision needs: Yes Female Reproductive History Menstrual Age of Menarche: 13 Review of Systems Const All systems reviewed & are unremarkable except as noted in HPI and below Physical Exam Vital Signs: BMI result Body Mass Index 27.0 Extrem Other: *Bilateral Lower Extremity Focused Exam Vascular: DP/PT 2/4, CFT<3s to digits, TG warm to cool, no pedal edema, no edema to the right calf Derm: No open wounds or lacerations. Neuro: Protective sensation grossly intact to bilateral lower extremities. MSK: No tenderness on palpation of medial calcaneal tubercle right heel, no tenderness on palpation of the plantar fascia bands or the Achilles tendon. No tenderness to the calf on dorsiflexion of the ankle, no tenderness on calf squeeze, the calf is supple with no induration. Ankle dorsiflexion 5 degrees on knee extension, 10 degrees on knee flexion. Results Reviewed Results Reviewed: Ordering Physician: Matheus Santamaria DPM Date of Service: 10/27/24 Procedure(s): US venous duplex LE RT IMPRESSION: No evidence of deep venous thrombosis involving the right lower extremity. Assessment & Plan Assessment & Plan (1) Plantar fasciitis of right foot: Comment: s/p injection 11/21/2024 Code(s): M72.2 - Plantar fascial fibromatosis Category: Medical Plan: Instructed to continue performing range of motion and stretching exercises daily otherwise there is a risk of recurrence. Recommended use of more supportive sneakers such as Hoka, new balance, asics. Continue use of orthotics. Discussed possible custom orthotics based on her high arch foot type if her pain becomes chronic and persistent. Follow up as needed (2) Strain of gastrocnemius tendon of right lower extremity: Code(s): S86.111A - Strain of other muscle(s) and tendon(s) of posterior muscle group at lower leg level, right leg, initial encounter Category: Medical Qualifiers: Encounter type: subsequent encounter Qualified Code(s): S86.111D - Strain of other muscle(s) and tendon(s) of posterior muscle group at lower leg level, right leg, subsequent encounter Plan: Resolved Coding Level of Care Code Est Pt Level 2 (92897) Diagnoses Plantar fasciitis of right foot M72.2 Strain of gastrocnemius tendon of right lower extremity, subsequent encounter S86.111D Encounter type: subsequent encounter Time Spent (min) 10
[2024-12-13 08:28] VITALS: BMI 27.0
== END 2024-12-13 09:02 | disposition home or self-care (01) ==
LOC: HO.HPODS 08:20
PROVIDERS: PCP Internal Medicine; Visit Provider Student in an Organized Health Care Education/Training Program
DX: M72.2 Plantar fascial fibromatosis (principal); S86.111D Strain of other muscle(s) and tendon(s) of posterior muscle group at lower leg level, right leg, subsequent encounter
CPT/HCPCS: 99212

== ENCOUNTER → 2024-12-13 08:19 | Outpatient (BNVA) | payer MEDICARE, MEDICAID, SELFPAY | PROVIDERS: PCP Internal Medicine; Visit Provider Student in an Organized Health Care Education/Training Program | DX: M72.2 Plantar fascial fibromatosis (principal); S86.111D Strain of other muscle(s) and tendon(s) of posterior muscle group at lower leg level, right leg, subsequent encounter | CPT/HCPCS: 99212 ==

== ENCOUNTER 2025-01-03 13:29 | Outpatient (AMB) | payer MEDICARE, MEDICAID, SELFPAY ==
--- NOTE | 2025-01-03 13:49 | MHC.OFFVIS ---
Intake Visit Reasons: procedure f/u Intake Note: Patient presents today for follow up on procedure Urology Medication:NONE Antibiotic Allergy:PENICILLINS,SULFA Blood Thinner:NONE Radiologic Technology Instructor Required: No Accompanied by: Self / Same As Patient Allergies Sulfa (Sulfonamide Antibiotics) (SULFA (SULFONAMIDE ANTIBIOTICS)) Allergy (Severe, Verified 01/03/25 14:21) RASH Penicillins (PENICILLINS) Allergy (Intermediate, Verified 01/03/25 14:21) RASH pseudoephedrine (Sudafed) Allergy (Intermediate, Verified 01/03/25 14:21) Rash Medication List - Last Reconciled 01/03/25 by GABRIELA Carrero atenolol 25 mg PO DAILY atorvastatin 20 mg PO BEDTIME [Blood pressure monitor As directed] loratadine (Claritin) 10 mg PO DAILY PRN phenazopyridine (Azo Urinary Pain Relief) 199 mg (2 x 99.5 mg) PO BID PRN 6 doses HPI Comments Details: Karen is a very pleasant 69-year-old female patient of Dr. Amin. She has a past medical history of cellulitis, nephrolithiasis, vaginal atrophy, vitamin-D deficiency, cirrhosis, and hyperlipidemia. She presents to the office today for follow-up of her microscopic hematuria and nephrolithiasis. Of note, patient underwent cystoscopy, bilateral retrograde, and left ureteroscopy with Dr. Lowell Suarez 10/25/24 for question of left ureteral stone. Calcifications seen in pelvis on fluoroscopy, retrogrades and ureteroscopy performed, no stones visualized in the left distal ureter, calcifications seen on fluoroscopy are likely phleboliths. She denies having had any bothersome urinary issues or concerns. She denies urinary urgency, urinary frequency, incontinence, nocturia, hematuria, dysuria, foul smelling urine, changes to urinary stream, flank pain, fever, and or chills. She is happy with her current voiding parameters. In office urinalysis results reviewed with the patient today 2+ microscopic hematuria otherwise within normal limits. We discussed obtaining more recent renal imaging. All questions were answered. She otherwise offers no other issues or concerns at this time. 05/09 Atypical urothelial cells, / Negative for high-grade urothelial carcinoma, / Negative for high-grade urothelial carcinoma. [facility] Medical History Cellulitis Renal calculi Vaginal atrophy Vitamin D deficiency Cirrhosis High cholesterol Surgical History History of urologic surgery History of biopsy History of lithotripsy History of tubal ligation History of foot surgery Family History Father No problems noted. Mother Depression Mental health disorder Social History Housing: Apartment Alcohol intake: never Patient Tobacco Use Status: Never used Tobacco e-Cigarette/Vaping Use: Never Used Second Hand Smoke Exposure: No service: No Current occupational status: retired Cognitive needs: No Hearing needs: No Vision needs: Yes Female Reproductive History Menstrual Age of Menarche: 13 Review of Systems Const Reports no additional complaints Eyes Reports no additional complaints ENT Reports no additional complaints Card Reports as per HPI Resp Reports no additional complaints GI Reports no additional complaints Reports as per HPI Musc Reports no additional complaints Neuro Reports no additional complaints Psych Reports no additional complaints Endo Reports no additional complaints [place]/Lymph Reports no additional complaints Aller/Immun Reports no additional complaints Physical Exam Const General: cooperative, healthy appearing, comfortable, no acute distress, well developed, alert and awake Orientation/consciousness: patient oriented x3 Limitations: no limitations HEENT Head: Yes normal to inspection, Yes normocephalic and Yes atraumatic Ears: hearing grossly normal bilaterally Eyes General: appearance normal, both eyes and all related structures Neck Neck: Yes normal visual inspection and Yes trachea midline Chest Chest palpation & inspection: normal inspection of the chest Resp Effort & Inspection: normal respiratory effort and able to speak in complete sentences Cardio Rate: regular rate GI Inspection: Yes normal to inspection General: Yes no CVA tenderness Back/Spine/Pelvis Back: no CVA tenderness Skin General skin exam: no rashes or lesions noted Neuro General: patient oriented x3 Extrem General: Yes normal to inspection Psych Appearance: grossly normal and well kempt Mental Status: mental status grossly normal Speech and movement: Normal speech and movement present and Clear speech present Affect: normal affect Attitude: cooperative Thought process: Normal thought process present Thought content: Normal thought content present Insight: Fair insight present (Psych) Judgement: Fair judgement present (Psych) Assessment & Plan Assessment & Plan (1) Microscopic hematuria: Code(s): R31.29 - Other microscopic hematuria Category: Medical (2) Hydronephrosis: Code(s): N13.30 - Unspecified hydronephrosis Category: Medical (3) Renal calculi: Comment: June 2018 lithotripsy right ureteral stent July 2018[place]y [place] Code(s): N20.0 - Calculus of kidney Category: Medical Plan In office urinalysis results reviewed with the patient today; as noted above; will send for urine cytology. She currently denies any bothersome urinary issues or concerns. She reports be happy with current voiding parameters. We did discussed findings on most recent cystoscopy/left ureteroscopy as noted above. All questions were answered. We did discussed the importance of adequate hydration relation to nephrolithiasis as well as overall health and well-being. Will obtain renal ultrasound for further assessment evaluation. Follow-up in 1-3 months with imaging; or sooner with any issues, concerns, and or questions. Orders: Orders Urine Cytology Today R31.29 - Other microscopic hematuria US renal BI Today N20.0 - Calculus of kidney Patient Instructions: The patient had an opportunity to ask questions regarding the treatment plan. All questions were answered. Physical exam, labs, and imaging were discussed and reviewed in detail. As well as risks, benefits, and discussion of treatment choices. No major barriers to understanding were identified. The patient expressed understanding and agreement with the above treatment plan. The patient was made aware they should contact our office by phone for worsening of their current condition, the appearance of new symptoms, or with any questions or concerns. Compliance is encouraged with any medications and follow up testing that is ordered. It is a privilege to be allowed the opportunity to participate in? your urological care.? Again, if you have any questions or concerns If you have any questions or concerns please do not hesitate to contact me. The office is [phone]. This note is constructed using voice recognition software. While every effort has been made to ensure accuracy mathematics instructor errors may have been included. Yours sincerely, GABRIELA Carrero Coding Level of Care Code Est Pt Level 3 (76036) Complex EM visit Add On G2211 Diagnoses Microscopic hematuria R31.29 Hydronephrosis N13.30 Renal calculi N20.0
== END 2025-01-03 14:35 | disposition home or self-care (01) ==
LOC: HO.HUSH 13:30
PROVIDERS: PCP Internal Medicine; Visit Provider Nurse Practitioner Family
DX: R31.29 Other microscopic hematuria (principal); N13.30 Unspecified hydronephrosis; N20.0 Calculus of kidney
CPT/HCPCS: 99213; G2211

== ENCOUNTER 2025-01-03 13:29 | Outpatient (REF) | payer MEDICARE, MEDICAID, SELFPAY | END 2025-01-03 13:30 | disposition home or self-care (01) | LOC: HO.LNP 13:29 | PROVIDERS: PCP Internal Medicine; Visit Provider Nurse Practitioner Family | DX: N13.2 Hydronephrosis with renal and ureteral calculous obstruction (principal) | CPT/HCPCS: 81003; 88112; 99212 ==